=== PATIENT | female | born 1960 | race Caucasian/White ===

== ENCOUNTER → 2024-05-28 | Outpatient (CLI) | payer MEDICARE, OTHER, MEDICAID, SELFPAY ==
--- NOTE | 2024-05-28 10:25 | XR_ITS ---
Examination: Upright PA chest inspiration expiration 2 views TECHNIQUE: Upright PA chest inspiration expiration 2 views Exam date and time: May 28, 2024 1040 hours Comparison July 19, 2023 INDICATIONS: Tuberculosis exposure 2009-/2011, diagnosis COPD FINDINGS: Mild hyperexpansion Normal heart size No pneumonia or pulmonary edema Moderate osteopenia IMPRESSION: No active disease No radiographic findings of tuberculosis
--- NOTE | 2024-05-28 10:25 | XR_ITS ---
Examination: Lumbar spine, 5 views Technique: Lumbar spine AP, lateral, coned lateral lower lumbar spine, bilateral obliques 5 views Exam date and time: May 28, 2024 1032 hours INDICATIONS: Patient fell 2 months ago with injury of the lower back, lower back pain. FINDINGS: Prominent osteopenia Advanced diffuse facet arthropathy No lumbar fracture Advanced degenerative disc disease of the lower 3 lumbar levels IMPRESSION: No lumbar fracture Advanced degenerative disc disease at the lower 3 lumbar levels
== END | disposition home or self-care (01) ==
LOC: CDIM 10:09
PROVIDERS: PCP Nurse Practitioner Family; Referring Provider Nurse Practitioner; Visit Provider Nurse Practitioner
DX: M51.369 Other intervertebral disc degeneration, lumbar region without mention of lumbar back pain or lower extremity pain (principal); S39.92XA Unspecified injury of lower back, initial encounter; W19.XXXA Unspecified fall, initial encounter; F17.200 Nicotine dependence, unspecified, uncomplicated; J44.9 Chronic obstructive pulmonary disease, unspecified
CPT/HCPCS: 71046; 72110

== ENCOUNTER → 2024-07-10 | Outpatient (CLI) | payer MEDICARE, OTHER, MEDICAID, SELFPAY ==
--- NOTE | 2024-07-10 08:00 | XR_ITS ---
Examination: MRI abdomen with intravenous contrast. MRI abdomen without intravenous contrast. Date and time of exam: July 10, 2024 0846 hours Comparison December 15, 2023 INDICATIONS: History epigastric pain, months, MRI abdomen August 27, 2023 36 mm lesion left lobe liver, not depicted on MR study December 23, 2023 Technique: Multiple axial, sagittal and coronal sections of the abdomen obtained. Transverse images, TR 6020, TE 107. T1 weighted transverse images, TR 582, TE 9.5. T2-weighted sagittal images, TR 4000, TE 105. T2-weighted sagittal images, TR 4000, TE 5. Coronal images, TR 4210, TE 107. Axial and coronal images are obtained post 20 cc intravenous injection, gadolinium. Findings: No focal liver lesions on the precontrast images Common bile duct 7 mm no stones Pancreatic duct is not dilated No pancreatic mass Spleen is not enlarged No hydronephrosis No ascites Postcontrast images demonstrate no abnormal enhancing liver or splenic lesion No abdominal lymphadenopathy IMPRESSION: No enhancing liver lesion is depicted
== END | disposition home or self-care (01) ==
LOC: SMRI 07:49
PROVIDERS: PCP Nurse Practitioner Family; Referring Provider Internal Medicine Hematology & Oncology; Visit Provider Internal Medicine Hematology & Oncology
DX: R16.0 Hepatomegaly, not elsewhere classified (principal)
CPT/HCPCS: 74183; A9579

== ENCOUNTER 2024-07-12 11:05 | Outpatient (RCR) | payer MEDICARE, OTHER, MEDICAID, SELFPAY | END 2024-07-27 23:59 | disposition home or self-care (01) | LOC: SCTC 11:05 | PROVIDERS: PCP Nurse Practitioner Family; Referring Provider Internal Medicine Hematology & Oncology; Visit Provider Internal Medicine Hematology & Oncology | DX: K76.0 Fatty (change of) liver, not elsewhere classified (principal); F17.210 Nicotine dependence, cigarettes, uncomplicated; L40.50 Arthropathic psoriasis, unspecified; J44.9 Chronic obstructive pulmonary disease, unspecified; M85.80 Other specified disorders of bone density and structure, unspecified site; Z79.83 Long term (current) use of bisphosphonates | CPT/HCPCS: 99212; G0463 ==

== ENCOUNTER → 2024-08-23 | Outpatient (CLI) | payer MEDICARE, OTHER, MEDICAID, SELFPAY ==
--- NOTE | 2024-08-23 13:45 | XR_ITS ---
Examination: MRI lumbar spine without contrast Date and time of exam: August 23, 2024 1420 hrs. Indications: Lower back pain 20 years Technique: Multiple MRI axial and sagittal sections lumbar spine. Sagittal T2-weighted images, TR 3500, TE 118 T1 weighted transverse sections, TR 688 T8.5, T2-weighted sagittal sections T1 weighted sagittal sections TR 621, TE 30 T2 axial sections, TR 4, 190, TE 84. Findings: Adequate alignment lumbar vertebral bodies on the lateral view Advanced disc narrowing at the lower 3 lumbar levels Diffuse lumbar disc desiccation No lumbar fracture No spondylolisthesis L5-S1 6 mm central left paracentral disc bulge displacing the left S1 nerve root extending to the right foraminal region with severe right L5 ganglionic compression L4-L5 6 mm central lumbar disc bulge extending to the right foramen with mild right L4 ganglionic compression L3-L4 foraminal disc bulges with mild left L3 ganglionic compression L2-L3 no disc protrusion L1-2 no disc protrusion Impression: L5-S1 6 mm central left paracentral disc bulge displacing the left S1 nerve root, extending to the right abdomen with severe right L5 ganglionic compression L4-L5 6 mm central lumbar disc bulge extending to the right foramen with mild right L4 ganglionic compression L3-L4 mild left L3 ganglionic compression
== END | disposition home or self-care (01) ==
PROVIDERS: PCP Nurse Practitioner Family; Referring Provider Nurse Practitioner; Visit Provider Nurse Practitioner
DX: M51.379 Other intervertebral disc degeneration, lumbosacral region without mention of lumbar back pain or lower extremity pain (principal); M51.369 Other intervertebral disc degeneration, lumbar region without mention of lumbar back pain or lower extremity pain; G95.20 Unspecified cord compression
CPT/HCPCS: 72148

== ENCOUNTER 2024-09-11 16:34 | Inpatient (IN) | payer MEDICARE, MEDICAID, SELFPAY ==
[2024-09-11] VITALS (8 sets, daily range): BP systolic 145–185; BP diastolic 89–114; PULSE 105–118; RESP 20–26; TEMP 36.4–36.7; O2SAT 95–98; BMI 29.3
--- NOTE | 2024-09-11 16:43 | XR_ITS ---
Examination: AP chest single view Technique one AP portable upright chest single view Exam date and time: September 11, 2024 1606 hours Comparison May 28, 2024 INDICATIONS: Coughing shortness of breath today. FINDINGS: Prominent left lower lobe pneumonia Right lung clear Suspicious for early pneumonia right upper lobe Prominent osteopenia IMPRESSION: Prominent left lower lobe pneumonia
--- NOTE | 2024-09-11 16:43 | EKG_ITS ---
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
--- NOTE | 2024-09-11 16:47 | PD.EDADULT ---
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 Protein Trace (Neg - Trace) Urine Glucose (UA) Negative (Negative) Urine Ketones Negative (Negative) Urine Blood Negative (Negative) Urine Nitrite Negative (Negative) Urine Bilirubin Negative (Negative) Urine Urobilinogen (Auto) Negative (0.0-1.0) mg/dL Ur Leukocyte Esterase Positive (Negative) Urine RBC 2 (0-3) /hpf Urine WBC 2 (0-5) /hpf Ur Squamous Epith Cells 1 (0-5) /hpf Urine Bacteria Rare (None) Urine Opiates Screen Negative (Negative) Urine Fentanyl Screen Negative (Negative) Ur Barbiturates Screen Negative (Negative) U Amphetamin/Meth Scrn Negative (Negative) U Benzodiazepines Scrn Negative (Negative) U Cocaine Metab Screen Negative (Negative) U Marijuana (THC) Screen Negative (Negative) Discharge Plan Plan Patient Disposition: Admit Acute Care w/in Hospital Patient condition on transfer: Stable Problem List Clinical Impression: Shortness of breath, Lung mass PA/IS MANAGER Supervising Physician PA/IS MANAGER Supervising Physician: Ravin Mendez ENP
[2024-09-11 18:05] LABS: Collection Type, Urine Clean Catch
[2024-09-11 18:17] LABS: Bacteria,Urine Rare; Bilirubin,Urine Negative (Negative); Blood,Urine Negative (Negative); Clarity,Urine Turbid (Clear/Hazy); Color,Urine Yellow (Lt Yel-Yel); Glucose, Urine Negative (Negative); Ketones,Urine Negative (Negative); Leukocyte Esterase,Urine Positive (Negative); Nitrite,Urine Negative (Negative); Protein,Urine Trace (Neg - Trace); RBC,Urine 2 /hpf (0-3); Specific Gravity,Urine 1.027 (1.001-1.035); Squamous Epithelial Cell,Urine 1 /hpf (0-5); Urobilinogen,Urine Negative mg/dL (0.0-1.0); WBC,Urine 2 /hpf (0-5)
[2024-09-11 18:40] LABS: Amphetamine/Methamp Scrn,U Negative (Negative); Barbiturate Screen,Urine Negative (Negative); Benzodiazepines Screen,Urine Negative (Negative); Benzoylecgonine Screen, Ur Negative (Negative); Fentanyl Screen,Urine Negative (Negative); Opiate Screen,Urine Negative (Negative); THC Screen,Urine Negative (Negative)
[2024-09-11 19:05] LABS: Basophils # (Auto) 0.1 Thou/mm3 (0.0-0.2); Basophils % (Auto) 1 % (0-2.5); Eosinophils # (Auto) 0.2 Thou/mm3 (0.0-0.5); Eosinophils % (Auto) 1 % (0-10); Hematocrit 42.2 % (36.0-46.0); Hemoglobin 14.8 g/dL (12.0-16.0); Immature Granulocytes % (Auto) 2 % (0-0); Lymphocytes # (Auto) 3.2 Thou/mm3 (1.0-4.8); Lymphocytes % (Auto) 25 % (10-50); Mean Corpuscular HGB Conc 35.1 g/dl (31.0-37.0); Mean Corpuscular Hemoglobin 32.2 pg (25.0-35.0); Mean Corpuscular Volume 92 fL (80-100); Monocytes # (Auto) 1.5 Thou/mm3 (0.0-0.8); Monocytes % (Auto) 12 % (0-12); Neutrophils # (Auto) 7.5 Thou/mm3 (1.8-7.7); Neutrophils % (Auto) 59 % (37-80); Nucleated Red Blood Cell % 0 /100 WBC (0); Platelet Count 427 Thou/mm3 (140-440); RDW Standard Deviation 42.2 fL (36.4-46.3); White Blood Count 12.7 Thou/mm3 (3.6-11.0)
[2024-09-11 19:12] LABS: Partial Thromboplastin Time 27.8 Seconds (22.0-36.0); Prothrombin Time 11.2 Seconds (9.0-12.2)
[2024-09-11 19:17] LABS: B-Type Natriuretic Peptide 35 pg/mL (0-100)
[2024-09-11 19:19] LABS: Alanine Aminotransferase 31 U/L (10-49); Albumin, Serum 3.7 gm/dL (3.4-4.8); Alkaline Phosphatase 94 U/L (46-116); Anion Gap 10 (7-16); Aspartate Amino Transferase 16 U/L (0-34); BUN/Creatinine Ratio 16 Ratio (12-20); Bilirubin,Total 0.9 mg/dL (0.3-1.2); Blood Urea Nitrogen 11 mg/dL (9-23); Calcium 10.1 mg/dL (8.3-10.6); Calcium (Corrected) 10.3 mg/dL (8.5-10.1); Carbon Dioxide 23.5 mMol/L (20.0-31.0); Chloride 100 mMol/L (98-107); Creatinine (Component) 0.7 mg/dL (0.6-1.3); Estimated Creatinine Clearance 79.7 mL/min (>60); Globulin 3.8 gm/dL (2.3-3.5); Glucose 98 mg/dL (74-106); LDH (Lactate Dehydrogenase) 227 U/L (120-246); Magnesium 1.6 mg/dL (1.6-2.6); Osmolality,Calculated 265 (275-295); Potassium 3.9 mMol/L (3.4-5.1); Sodium 133 mMol/L (136-145); Total Protein 7.5 gm/dL (5.7-8.2); Troponin I < 0.020 ng/mL (0.0-0.045); eGFR > 60 See Note
--- NOTE | 2024-09-11 20:29 | XR_ITS ---
Examination: CTA chest with intravenous contrast 2-D reconstructions 3-D reconstructions, vascular Date and time of exam: September 11, 2024 at 2154 hrs. Indications: Coughing up blood chest pain SOB today CTDI: vol (mGy) 8.67 DLP: (mGycm) 343 Technique: Multiple axial sections of the thorax have been obtained. 3 mm slice thickness, from below the hemidiaphragms to above the apices of the lungs. Mediastinal and lung density settings have been obtained. 2-D sagittal and coronal reconstructions. 3-D angiographic renderings, 3-D volume renderings, 3D post processing, vascular maximum intensity projections obtained. Contrast administered is 100 cc Isovue-370. Low dose protocols were performed. One or more of the following dose reduction techniques were used; automated exposure control, adjustment of the mA and/or KV according to patient size, use of iterative reconstruction technique. Findings: No thoracic aortic aneurysm dilatation or dissection Negative for pulmonary artery filling defects No mediastinal lymphadenopathy Dense opacification in the left lower lobe, 5.6 x 3.5 cm No visualized liver or splenic lesion Absent gallbladder No pancreatic mass Mild thoracic spondylosis Impression: Negative for pulmonary artery emboli Dense pneumonic consolidation versus pulmonary mass in the left lower lobe, 5.6 x 3.5 cm Recommend follow-up chest imaging to document clearing and exclude underlying pulmonary neoplasm
[2024-09-11] MEDS: DiphenhydrAMINE INJ 50 MG/ML VIAL 25 MG IVP (21:08)
[2024-09-11] MEDS: MethylPREDNISolone SOD SUCC 62.5 MG/ML 2ML VIAL 125 MG IVP (21:08)
[2024-09-11] MEDS: hydrALAZINE INJ 20 MG/ML VIAL IV (21:11)
[2024-09-11] MEDS: cefTRIAXone 1,000 MG in SODIUM CHLORIDE 0.9% (Popper) 50 ML 100 MG IV (21:13)
--- NOTE | 2024-09-11 23:06 | ESHP_ITS ---
<Statement entered by John Romero MD - 09/12/24 05:28> 64-year-old female with remote history of latent TB status post therapy, COPD not on home oxygen, rheumatoid arthritis on Remicade infusion, atrial fibrillation on Eliquis, hypertension who presented to the ER with chief complaint of shortness of breath and blood-tinged sputum. Patient states that she was feeling well however has been having shortness of breath blood-tinged sputum that has been going on for the past 2 weeks with associated shortness of breath progressively have gotten worse which prompted an ER visit. In addition, patient also noted 2 pound weight loss in the past 1 year that is unintentional. In the ER, patient was noted to be hypoxic and septic and underwent CT chest with findings of questionable mass. As a result, plan to admit the patient for acute secondary to sepsis secondary to pneumonia and given history of latent TB and being on Remicade will isolate the patient TB isolation and obtain cocci studies. Patient on IV antibiotics.I reviewed above note and agree with findings and plans. I have also personally examined the patient with medicine team and went over assessment and plan with medical team including international flight attendant and resident physician. Documentation for date of: 09/11/24 HPI History of Present Illness History of present illness: HPI: A 64-year-old female patient with reportedly past medical history of COPD not on oxygen at home, hypertension, rheumatoid arthritis on Remicade infusion, A-fib on Eliquis, hypertension, bipolar disorder with suicidal ideation, osteoporosis, presented to the ED due to productive cough with tinge of blood in the sputum for the past 2 weeks. Patient reported that it is associated with mild chest pain that increased when she take a deep breath and located at the epigastric area. She believes it is muscle strain because of her persistent cough. Patient also reported shortness of breath unrelated to position. Patient denied any fever or chills, denied any history of travel abroad or sick contacts. However she reported she had history of TB exposure few years ago in which she was given anti-TB treatment for 3 months. On further questioning patient reported unintentional weight loss for the last year in which she lost 38 pounds. 1 year ago she was 208 pounds and now she is 130 pounds per the patient. Patient reported that she has been smoker for 40 years 1 to 2 packs/day last time smoked 2 weeks ago when her symptoms started. On review of other system patient reported 3 days of diarrhea last week that resolved spontaneously. At the ED patient blood pressure was 168/109, pulse rate of 115, respiratory rate of 22, saturating 97 on room air however it dropped to 94 on 2 L of oxygen. Her labs showed WBC of 12.7, however hemoglobin was stable, CMP showed sodium of 133 potassium of 3.9, calcium of 10.3 however troponin was within normal limits, liver enzymes within normal limits, urinalysis was normal chest x-ray showed prominent left lower lobe pneumonia, CT angio of the chest was done showed dense pneumonic consolidation versus pulmonary mass in the left lower lobe measure 5.6 x 3.5 cm differentials would include neoplasm as per radiology report. Home medications: Pending med rec PMH: As above PSX: PFX: Lives with her and son, no history of problems work Social hx: Alcohol: Denied Tobacco: 4 years history of smoking 1 to 2 packs/day stopped 2 weeks ago Illicit drugs: Denied Allergies:iodine morphine, etanercept Review of Systems Review of Systems Systems Reviewed: All systems reviewed, normal except as documented Exam Vital Signs Temp Pulse Resp BP Pulse Ox O2 Del Method O2 Flow Rate 98.0 F 114 H 20 165/89 H 96 Nasal Cannula 2 09/11/24 18:21 09/11/24 21:36 09/11/24 21:36 09/11/24 21:36 09/11/24 21:36 09/11/24 21:36 09/11/24 21:36 Narrative Exam GEN: AOx3, overweight, not able to speak full sentences, continue to cough and produce white-greenish phlegm HEENT: NC/AC, oral mucosa dry, neck supple CVS: RRR, S1-S2 present, no murmurs appreciated RESP: CTAB GI: soft,non distended, non tender, NBS MSK: able to move all 4 limbs, no lower extremity edema SKIN: warm and dry STREET LIGHT REPAIRER: CN II-XII and Sensation grossly intact. Results: Labs 09/11/24 18:05 09/11/24 18:05 Labs: Short CBC 09/11/24 Range/Units 18:05 WBC 12.7 H (3.6-11.0) Thou/mm3 Hgb 14.8 (12.0-16.0) g/dL Hct 42.2 (36.0-46.0) % Plt Count 427 (140-440) Thou/mm3 BMP 09/11/24 18:05 Sodium 133 L Potassium 3.9 Chloride 100 Carbon Dioxide 23.5 BUN 11 Creatinine 0.7 Glucose 98 Calcium 10.1 Cardiac Enzymes 09/11/24 Range/Units 18:05 Troponin I < 0.020 (0.0-0.045) ng/mL Liver Function 09/11/24 Range/Units 18:05 Total Bilirubin 0.9 (0.3-1.2) mg/dL AST 16 (0-34) U/L ALT 31 (10-49) U/L Alkaline Phosphatase 94 (46-116) U/L Albumin 3.7 (3.4-4.8) gm/dL Urine 09/11/24 Range/Units 17:10 Urine Color Yellow (Lt Yel-Yel) Urine Clarity Turbid A (Clear/Hazy) Urine pH 6.0 (5.0-7.0) Ur Specific [place] 1.027 (1.001-1.035) Urine Protein Trace (Neg - Trace) Urine Glucose (UA) Negative (Negative) Quality Measures Quality Measures none Advance care planning discussed with:: patient and significant other Medications Home Medications and Allergies Home Medications ?Medication ?Instructions ?Recorded ?Confirmed ?Type albuterol sulfate 90 mcg/actuation 2 puff inhalation Q ID #0 03/05/15 12/02/23 History aerosol inhaler (ProAir HFA) inhalations loratadine 10 mg tablet (Claritin) 10 mg PO QDAY #0 ta bs 03/05/15 12/02/23 History venlafaxine 150 mg 150 mg PO QDAY ##0 03/05/15 12/02/23 History capsule,extended release 24 hr (Effexor XR) divalproex 500 mg tablet,delayed 500 mg PO TID #0 tabs 08/06/15 12/02/23 History release (Depakote) amlodipine 5 mg tablet (Norvasc) 10 mg PO BID #0 tabs 04/13/17 12/02/23 History ergocalciferol (vitamin D2) 1,250 50,000 unit PO QWEEK 02/22/18 12/02/23 History mcg (50,000 unit) capsule (Vitamin D2) hydroxyzine HCl 25 mg tablet 50 mg PO TID 02/22/1801/17 History Held on 12/02/23. Instructions: Resume on 12/03/23. RESUME IN 24 HOURS cyclobenzaprine 10 mg tablet 10 mg PO HS 10/19/2301/17 History Held on 12/02/23. Instructions: Resume on 12/03/23. RESUME IN 24 HOURS hydrochlorothiazide 12.5 mg tablet 12.5 mg PO QAM 09/2612/02/23 History ipratropium 0.5 mg-albuterol 3 mg 3 ml inhalation Q4H PRN Shortness 10/19/23 12/02/23 History (2.5 mg base)/3 mL nebulization Of Breath Or Wheezing soln ubrogepant 100 mg tablet (Ubrelvy) 100 mg PO PRN PRN M igraine Headache 10/19/23 12/02/23 History carvedilol 12.5 mg tablet 12.5 mg DAILY 11/15/2312/01 History clopidogrel 75 mg tablet 75 mg DAILY 11/15/23 4 History metoprolol tartrate 100 mg tablet 100 mg BID 11/15/23 12/02/23 History pantoprazole 40 mg tablet,delayed 40 mg PO BID 4 12/02/23 History release pregabalin 50 mg capsule 50 mg BID Nerve pain 4 12/02/23 History loratadine 10 mg tablet 10 mg PO QDAY 12/02/2312/01 History Allergies Allergy/AdvReac Type Severity Reaction Status Date / Time iodine Allergy Severe RASH,DIFFICULTY Verified 09/11/24 16:37 BREATHING morphine Allergy Severe FEELS ON Verified 09/11/24 16:37 FIRE,FACE SWELLS adhesive tape Allergy Unknown Rash Verified 09/11/24 16:37 etanercept Allergy Rash Verified 09/11/24 16:37 Visit Medications Acetaminophen (Acetaminophen 325 Mg Tablet) 650 mg PO Q6H PRN PRN Reason: Fever >101.5 Stop: 10/11/24 22:49 Acetaminophen (Acetaminophen 325 Mg Tablet) 650 mg PO Q6H PRN PRN Reason: PAIN SCALE 1-3 (mild Stop: 10/11/24 22:49 Albuterol/Ipratropium (Albuterol/Ipratropium (Duoneb) Rt Ruth 3 Ml Nebu) 3 ml INH Q6HRRT PRN PRN Reason: wheezing Stop: 10/12/24 00:59 Albuterol/Ipratropium (Albuterol/Ipratropium (Duoneb) Rt Ruth 3 Ml Nebu) 3 ml INH X1 ONE Stop: 09/11/24 23:06 Amlodipine Besylate (Amlodipine Besylate 5 Mg Tablet) 10 mg PO QDAY MAGDY Stop: 10/11/24 23:04 Azithromycin (Azithromycin 250 Mg Tablet) 250 mg PO QDAY MAGDY Stop: 09/17/24 08:59 Sodium Chloride (Ns) 1,000 mls @ 999 mls/hr IV .Q1H1M ONE Stop: 09/12/24 00:00 Sodium Chloride (Ns) 1,000 mls @ 999 mls/hr IV .Q1H1M ONE Stop: 09/12/24 00:00 Ceftriaxone Sodium 1,000 mg/ (Sodium Chloride) 50 mls @ 100 mls/hr IV QDAY MAGDY Stop: 09/19/24 08:59 Ondansetron HCl (Ondansetron Inj 2 Mg/Ml Inj 2 Ml) 4 mg IV Q6H PRN; Protocol PRN Reason: NAUSEA OR VOMITING Stop: 10/11/24 22:49 Pantoprazole Sodium (Pantoprazole 40 Mg Tablet) 40 mg PO QDAY MAGDY Stop: 10/12/24 08:59 Sennosides (Senna Tablet) 1 tab PO QDAY PRN; Protocol PRN Reason: constipation Stop: 10/11/24 22:49 Sodium Chloride (Sodium Chloride Rt 10% 15 Ml Nebu) 5 ml INH X1 ONE Stop: 09/11/24 22:51 Sodium Chloride (Sodium Chloride Rt 10% 15 Ml Nebu) 5 ml INH X1 ONE Stop: 09/11/24 22:59 Discontinued Medications Diphenhydramine HCl (Diphenhydramine Inj 50 Mg/Ml Vial) 25 mg IVP X1 ONE Stop: 09/11/24 20:53 Last Admin: 09/11/24 21:08 Dose: 25 mg Hydralazine HCl (Hydralazine Inj 20 Mg/Ml Vial) 20 mg IV X1 ONE Stop: 09/11/24 19:31 Last Admin: 09/11/24 21:11 Dose: 20 mg Ceftriaxone Sodium 1,000 mg/ (Sodium Chloride) 50 mls @ 100 mls/hr IV X1 ONE Stop: 09/11/24 19:59 Last Infusion: 09/11/24 22:13 Dose: Infused Methylprednisolone Sodium Succinate (Methylprednisolone Sod Succ 62.5 Mg/Ml 2ml Vial) 125 mg IVP X1 ONE Stop: 09/11/24 20:53 Last Admin: 09/11/24 21:08 Dose: 125 mg Assessment & Plan Plan Summary:A 64-year-old female patient with reportedly past medical history of COPD not on oxygen at home, hypertension, rheumatoid arthritis on Remicade infusion, A-fib on Eliquis, hypertension, bipolar disorder with suicidal ideation, osteoporosis, presented to the ED due to productive cough with tinge of blood in the sputum for the past 2 weeks. Patient was admitted to rule out TB. Assessment and plan #Acute hypoxic respiratory failure #Sepsis secondary to pneumonia #Community-acquired pneumonia #COPD exacerbation #TB rule out DDx: Pneumonia versus TB infection versus cocci versus neoplasm versus COPD exacerbation Patient met sepsis criteria with elevated heart rate, elevated WBCs, and pulmonary infiltrate Patient presented with cough which is productive with tinge of blood, weight loss, history of exposure to TB however she was given anti-TB medications for 3 months Patient is on Remicade for rheumatoid arthritis which is a risk factor for TB reactivation Patient also has long history of smoking, which he also increase the risk of pulmonary neoplasm. CT showed Dense pneumonic consolidation versus pulmonary mass in the left lower lobe, 5.6 x 3.5 cm Plan ?Admit patient to telemetry ? Start the patient on ceftriaxone, azithromycin ? Follow-up on the blood culture and urine culture ? Put patient on droplet precautions ? Sent for AFB, cocci and follow-up on the results ? DuoNebs every 6 hours as needed ? Tylenol for fever ? Oxygen to keep O2 saturation between 88 to 92% ? RSV, influenza screening #History of hypertension Plan ? Resume home medications after med reconciliation ?Start the patient on amlodipine 10 mg p.o. daily #History of A-fib on Eliquis Plan ? Because the patient has hemoptysis and has suspicious pulmonary lesion we will hold on Eliquis at this time, consider resuming when clinically appropriate #History of bipolar disorder with suicidal ideation On evaluation patient denied any ideas to hurt herself or others Patient informed that she is taking Depakote as a mood stabilizer Plan ? Pending med reconciliation to resume her home medications #History of osteoporosis Patient on alendronate tablets weekly Plan ? Consider resuming home medication alendronate when clinically appropriate Hospital Maintenance: FEN: Cardiac diet DVT ppx: SCDs GI ppx: Pantoprazole IV lines: PIV Treadwell: Not indicated Code status: Full code Dispo: Telemetry - Patient's plan and care discussed with my attending, Dr. Heather Huerta MD Internal Medicine PGY-2
[2024-09-11] MEDS: SODIUM CHLORIDE 0.9% 1000 ML 1,000 ML 999 ML IV ×2 (23:18)
[2024-09-11] MEDS: amLODIPine BESYLATE 5 MG TABLET 10 MG PO (23:23)
[2024-09-11] MEDS: ALBUTEROL/IPRATROPIUM (Duoneb) RT SOL 3 ML NEBU INH (23:39)
[2024-09-11] MEDS: SODIUM CHLORIDE RT 10% 15 ML NEBU 5 ML INH (23:50)
[2024-09-12] VITALS (12 sets, daily range): BP systolic 118–149; BP diastolic 69–95; PULSE 70–120; RESP 17–98; TEMP 36.1–37; O2SAT 93–98
[2024-09-12 00:19] LABS: Cult AFB Sendout- Sputum* See Sep Rpt
[2024-09-12 05:15] LABS: Basophils % (Auto) 0 % (0-2.5); Eosinophils % (Auto) 0 % (0-10); Hematocrit 40.8 % (36.0-46.0); Hemoglobin 14.4 g/dL (12.0-16.0); Immature Granulocytes % (Auto) 2 % (0-0); Immature Granulocytes Auto 0.22 Thou/mm3 (0.00-0.00); Lymphocytes # (Auto) 1.1 Thou/mm3 (1.0-4.8); Lymphocytes % (Auto) 10 % (10-50); Mean Corpuscular HGB Conc 35.3 g/dl (31.0-37.0); Mean Corpuscular Hemoglobin 32.5 pg (25.0-35.0); Mean Corpuscular Volume 92 fL (80-100); Monocytes # (Auto) 0.1 Thou/mm3 (0.0-0.8); Monocytes % (Auto) 1 % (0-12); Neutrophils # (Auto) 9.9 Thou/mm3 (1.8-7.7); Neutrophils % (Auto) 87 % (37-80); Nucleated Red Blood Cell % 0 /100 WBC (0); Platelet Count 438 Thou/mm3 (140-440); RDW Standard Deviation 42.9 fL (36.4-46.3); Red Blood Count 4.43 Miln/mm3 (4.00-5.20); White Blood Count 11.4 Thou/mm3 (3.6-11.0)
[2024-09-12 05:53] LABS: Respiratory Syncytial Virus Ag Negative (Negative)
[2024-09-12 06:16] LABS: Alanine Aminotransferase 35 U/L (10-49); Albumin, Serum 3.8 gm/dL (3.4-4.8); Albumin/Globulin Ratio 1.1 (1.2-2.2); Alkaline Phosphatase 98 U/L (46-116); Anion Gap 10 (7-16); Aspartate Amino Transferase 26 U/L (0-34); BUN/Creatinine Ratio 14 Ratio (12-20); Bilirubin,Total 0.6 mg/dL (0.3-1.2); Blood Urea Nitrogen 11 mg/dL (9-23); Calcium 9.1 mg/dL (8.3-10.6); Calcium (Corrected) 9.3 mg/dL (8.5-10.1); Carbon Dioxide 19.9 mMol/L (20.0-31.0); Chloride 103 mMol/L (98-107); Creatinine (Component) 0.8 mg/dL (0.6-1.3); Estimated Creatinine Clearance 69.7 mL/min (>60); Globulin 3.6 gm/dL (2.3-3.5); Glucose 297 mg/dL (74-106); Magnesium 1.4 mg/dL (1.6-2.6); Osmolality,Calculated 276 (275-295); Phosphorous 2.3 mg/dL (2.4-5.1); Potassium 4.3 mMol/L (3.4-5.1); Sodium 133 mMol/L (136-145); Thyroid Stimulating Hormone 1.15 uIU/mL (0.55-4.78); Total Protein 7.4 gm/dL (5.7-8.2); eGFR > 60 See Note
[2024-09-12] MEDS: PANTOPRAZOLE 40 MG TABLET PO (09:00)
[2024-09-12] MEDS: AZITHROMYCIN 250 MG TABLET PO (09:00)
[2024-09-12] MEDS: NAPH,KPH MBDB 1 PACKET (1.5 GM) PO (09:00)
[2024-09-12] MEDS: amLODIPine BESYLATE 5 MG TABLET 10 MG PO (09:00)
[2024-09-12] MEDS: Magnesium Sulfate 4 GM Ivpb 4 GM/50 ML BAG IV (09:00)
--- NOTE | 2024-09-12 13:40 | ESPR_ITS ---
<Statement entered by Marge Stahl MD - 09/12/24 19:41> I discussed with and supervised the internet marketing intern physician who took care of this patient. I personally saw and examined the patient and discussed the assessment and plan with the entire medicine team, including my attending Dr. Hutchinson, I agree with the assessment and plan as documented below Patient seen and examined at bedside today. Labs and imaging reviewed. No overnight acute events Did not want to bedside patient said that she feels better twice endorsed pleuritic chest pain due to cough continued to present hemoptysis patient stated in the past she was exposed for TB and received 3 months treatment. Will continue IV antibiotics ceftriaxone and azithromycin. Marge Stahl MD PGY-3 Disclaimer: Despite multiple revisions, due to the dictation software being used, the document bellow may not be free of grammatical errors including phonetic/typographic errors. However, this does not deter from our commitment to providing health care in the patient's best interest in mind. <Statement entered by Chyna Babin MD - 09/12/24 18:49> Patient seen and examined at bedside. No acute overnight events reported. Patient continues to have cough with hemoptysis and pleuritic chest pain. Will reach out to patient's general scrap worker for old records to see when her last TB and treatment was prior to possibly starting infliximab if needed. Patient will continue to be on IV Rocephin, azithromycin, pending cultures, cocci. I discussed with and supervised the internet marketing intern physician who took care of this patient. I personally saw and examined the patient and discussed the assessment and plan with the entire medicine team, including my attending Dr. Hutchinson, I agree with most of the assessment and plan as documented below Chyna Babin M.D. PGY-2 Disclaimer: Despite multiple revisions, due to the dictation software being used, the document bellow may not be free of grammatical errors including phonetic/typographic errors. However, this does not deter from our commitment to providing health care in the patient's best interest in mind. Documentation for date of: 09/12/24 Subjective Subjective Interval history: No overnight events. Patient seen examined at bedside, resting comfortably. Patient reports continued cough with hemoptysis, pleuritic chest pain. Denies fever, chills, nausea, vomiting, fatigue, lethargy. Will call general scrap worker, see if patient had recent TB test and what the result was. Exam Vital Signs Temp Pulse Resp BP Pulse Ox O2 Del Method O2 Flow Rate 97.1 F 97 18 134/79 H 96 Room Air 2 09/12/24 08:00 09/12/24 09:00 09/12/24 08:00 09/12/24 09:00 09/12/24 08:00 09/12/24 06:31 09/12/24 00:00 Narrative Exam PE: Gen: Well-developed and well-nourished. HEENT: NCAT, PERRLA, EOMI, MMM, anicteric conjunctivae. CVS: normal S1 and S2. RRR. No M/R/G. Resp: CTA B/L. No rhonchi, rales, crackles or wheezing. Abd: soft, non-tender, non-distended. MSK: Good ROM in BUE & BLE. No edema or rash. Neuro: CN II-XII grossly intact. Strength 5/5 in BUE & BLE. Alert and oriented x3. Psych: appropriate mood and affect. Objective Labs 09/13/24 05:37 09/13/24 05:37 Labs: Laboratory Results - last 24 hr 09/11/24 09/11/24 09/12/24 17:10 18:05 04:57 WBC 12.7 H 11.4 H RBC 4.60 4.43 Hgb 14.8 14.4 Hct 42.2 40.8 MCV 92 92 MCH 32.2 32.5 MCHC 35.1 35.3 RDW Std Deviation 42.2 42.9 Plt Count 427 438 Neut % (Auto) 59 87 H Lymph % (Auto) 25 10 [place] % (Auto) 12 1 Eos % (Auto) 1 0 Baso % (Auto) 1 0 Neut # (Auto) 7.5 9.9 H Lymph # (Auto) 3.2 1.1 [place] # (Auto) 1.5 H 0.1 Eos # (Auto) 0.2 0.0 Baso # (Auto) 0.1 0.0 Immature Gran # (Auto) 0.30 H 0.22 H Absolute Nucleated RBC 0.00 0.00 Immature Gran % 2 H 2 H Nucleated RBC % 0 0 PT 11.2 INR 1.0 APTT 27.8 Sodium 133 L 133 L Potassium 3.9 4.3 Chloride 100 103 Carbon Dioxide 23.5 19.9 L Anion Gap 10 10 BUN 11 11 Creatinine 0.7 0.8 Estim Creat Clear Calc 79.7 69.7 eGFR > 60 > 60 BUN/Creatinine Ratio 16 14 Glucose 98 297 H D Calculated Osmolality 265 L 276 Calcium 10.1 9.1 Corrected Calcium 10.3 H 9.3 Phosphorus 2.3 L Magnesium 1.6 1.4 L Total Bilirubin 0.9 0.6 AST 16 26 ALT 31 35 Alkaline Phosphatase 94 98 Lactate Dehydrogenase 227 Troponin I < 0.020 B-Natriuretic Peptide 35 Total Protein 7.5 7.4 Albumin 3.7 3.8 Globulin 3.8 H 3.6 H Albumin/Globulin Ratio 1.0 L 1.1 L TSH 1.15 Ur Collection Type Clean Catch Urine Color Yellow Urine Clarity Turbid A Urine pH 6.0 Ur Specific [place] 1.027 Urine Protein Trace Urine Glucose (UA) Negative Urine Ketones Negative Urine Blood Negative Urine Nitrite Negative Urine Bilirubin Negative Urine Urobilinogen (Auto) Negative Ur Leukocyte Esterase Positive Urine RBC 2 Urine WBC 2 Ur Squamous Epith Cells 1 Urine Bacteria Rare Urine Opiates Screen Negative Urine Fentanyl Screen Negative Ur Barbiturates Screen Negative U Amphetamin/Meth Scrn Negative U Benzodiazepines Scrn Negative U Cocaine Metab Screen Negative U Marijuana (THC) Screen Negative RSV Rapid Negative Quality Measures Quality Measures VTE prophylaxis Advance care planning discussed with:: patient Assessment & Plan Assessment Current Active Medications: Generic Name Dose Route Start Last Admin Trade Name Freq PRN Reason Stop Dose Admin Acetaminophen 650 mg 09/11/24 22:50 Acetaminophen 325 Mg Tablet PO 10/11/24 22:49 Q6H PRN Fever >101.5 Acetaminophen 650 mg 09/11/24 22:50 Acetaminophen 325 Mg Tablet PO 10/11/24 22:49 Q6H PRN PAIN SCALE 1-3 (mild Albuterol/Ipratropium 3 ml 09/11/24 22:50 Albuterol/Ipratropium (Duoneb) Rt Ruth 3 Ml Nebu INH 10/12/24 00:59 Q6HRRT PRN wheezing Amlodipine Besylate 10 mg 09/11/24 23:05 09/12/24 09:00 Amlodipine Besylate 5 Mg Tablet PO 10/11/24 23:04 10 mg QDAY MAGDY Administration Azithromycin 250 mg 09/12/24 09:00 09/12/24 09:00 Azithromycin 250 Mg Tablet PO 09/17/24 08:59 250 mg QDAY MAGDY Administration Ceftriaxone Sodium 1,000 mg/ 50 mls @ 100 mls/hr 09/12/24 21:00 Sodium Chloride IV 09/19/24 08:59 QDAY@2100 MAGDY Labetalol HCl 10 mg 09/11/24 23:08 Labetalol Inj 5 Mg/Ml Vial 20 Ml IVP 10/11/24 23:07 Q2H PRN SBP >180mmHg Ondansetron HCl 4 mg 09/11/24 22:50 Ondansetron Inj 2 Mg/Ml Inj 2 Ml IV 10/11/24 22:49 Q6H PRN NAUSEA OR VOMITING Protocol Pantoprazole Sodium 40 mg 09/12/24 09:00 09/12/24 09:00 Pantoprazole 40 Mg Tablet PO 10/12/24 08:59 40 mg QDAY MAGDY Administration Sennosides 1 tab 09/11/24 22:50 Senna Tablet PO 10/11/24 22:49 QDAY PRN constipation Protocol Plan 64-year-old female patient with reportedly past medical history of COPD not on oxygen at home, hypertension, rheumatoid arthritis on Remicade infusion, A-fib on Eliquis, hypertension, bipolar disorder with suicidal ideation, osteoporosis, presented to the ED due to productive cough with tinge of blood in the sputum for the past 2 weeks. Patient was admitted to rule out TB. #Acute hypoxic respiratory failure #Sepsis ruled out #Community-acquired pneumonia #COPD exacerbation #TB rule out DDx: Pneumonia versus TB infection versus cocci versus neoplasm versus COPD exacerbation Patient met SIRS criteria with elevated heart rate, elevated WBCs, and pulmonary infiltrate, however sepsis was ruled out due to lack of endorgan damage including normal lactate. Patient presented with cough which is productive with tinge of blood, weight loss, history of exposure to TB however she was given anti-TB medications for 3 months Patient is on Remicade for rheumatoid arthritis which is a risk factor for TB reactivation, however patient likely had negative test of before beginning infusions. Patient also has long history of smoking, which he also increase the risk of pulmonary neoplasm. CT showed dense pneumonic consolidation versus pulmonary mass in the left lower lobe, 5.6 x 3.5 cm -Telemetry -Ceftriaxone 1 g IV daily (started 09/11) -Azithromycin 50 mg p.o. daily (started 09/10) -Follow-up on the blood culture and urine culture -Put patient on droplet precautions -Sent for AFB, cocci and follow-up on the results -DuoNebs every 6 hours as needed -Tylenol for fever -Oxygen to keep O2 saturation between 88 to 92% #History of hypertension -Start the patient on amlodipine 10 mg p.o. daily #History of A-fib on Eliquis -Because the patient has hemoptysis and has suspicious pulmonary lesion we will hold on Eliquis at this time, consider resuming when clinically appropriate #History of bipolar disorder with suicidal ideation On evaluation patient denied any ideas to hurt herself or others Patient informed that she is taking Depakote as a mood stabilizer -Resume home meds: Depakote 5 mg p.o. 3 times daily #History of osteoporosis Patient on alendronate tablets weekly Plan -Consider resuming home medication alendronate when clinically appropriate FEN: Cardiac diet DVT ppx: SCDs GI ppx: Pantoprazole IV lines: PIV Code status: Full code Plan of care discussed with senior residents Dr. Babin PGY?[address] Stahl PGY?3, and attending Dr. Hutchinson. Bogdan Ochoa MD PGY?1 Attending Provider Attestation/Addendum I have examined the patient, reviewed labs and imaging findings, discussed the case with the resident(s), and reviewed entered orders. I agree with the plan of care as outlined in this note, with these additional summaries/recommendations: Patient seen at bedside. Patient admitted overnight for hemoptysis. CTA chest was negative for pulmonary emboli but did reveal dense pneumonic consolidation versus pulmonary mass in the left lower lobe 5.6X 3.5 cm. Patient was placed on isolation precautions and AFBs were ordered. Patient apparently does have a history of latent tuberculosis. Patient recently started Remicade and we will reach out to general scrap worker to see if TB studies were obtained at that time and if negative we will discontinue isolation precautions. Continue IV antibiotics for community-acquired pneumonia. Blood and sputum cultures pending. Patient has history of atrial fibrillation and we will hold home Eliquis. Continue home antihypertensives as tolerated. Continue home Depakote. Repeat hematology and chemistry panel in AM. Dr. Evangelina MD
--- NOTE | 2024-09-12 13:55 | PC.SS ---
Patient is alert/oriented. Patient was able to verify demographics. Patient is in R/o TB isolation precautions. Patient states she resides at home with her . She was admitted for hemoptysis. Patient states she's independent with ADL's. No DME at home. Patient PCP: Iwona Song NP @ [facility]. Patient states her family/friends provide transportation. Patient receives [employer] income. Pharmacy: [email or web address]. Discharge plan: return home. Alt medical decision maker: spouse, Chang, .Family to provide transportation.
[2024-09-12] MEDS: METOPROLOL TARTRATE 25 MG TABLET 50 MG PO (20:58)
[2024-09-12] MEDS: cefTRIAXone 1,000 MG in SODIUM CHLORIDE 0.9% (Popper) 50 ML 100 MG IV (20:59)
[2024-09-12] MEDS: BENZONATATE 100 MG CAPSULE 200 MG PO (21:00)
[2024-09-12] MEDS: DIVALPROEX SOD DR 500 MG TABLET.DR PO (21:00)
[2024-09-13] VITALS (10 sets, daily range): BP systolic 127–141; BP diastolic 63–89; PULSE 66–103; RESP 16–98; TEMP 36.2–36.9; O2SAT 95–98; BMI 30.7; BMI 30.4
[2024-09-13] MEDS: BENZONATATE 100 MG CAPSULE 200 MG PO ×3 (05:29→21:54)
[2024-09-13] MEDS: DIVALPROEX SOD DR 500 MG TABLET.DR PO ×3 (05:30→21:54)
[2024-09-13 06:15] LABS: Basophils # (Auto) 0.1 Thou/mm3 (0.0-0.2); Basophils % (Auto) 0 % (0-2.5); Eosinophils % (Auto) 0 % (0-10); Hematocrit 39.2 % (36.0-46.0); Hemoglobin 13.5 g/dL (12.0-16.0); Immature Granulocytes % (Auto) 2 % (0-0); Immature Granulocytes Auto 0.27 Thou/mm3 (0.00-0.00); Lymphocytes % (Auto) 24 % (10-50); Mean Corpuscular HGB Conc 34.4 g/dl (31.0-37.0); Mean Corpuscular Hemoglobin 32.4 pg (25.0-35.0); Mean Corpuscular Volume 94 fL (80-100); Monocytes # (Auto) 1.5 Thou/mm3 (0.0-0.8); Monocytes % (Auto) 9 % (0-12); Neutrophils # (Auto) 11.5 Thou/mm3 (1.8-7.7); Neutrophils % (Auto) 66 % (37-80); Nucleated Red Blood Cell % 0 /100 WBC (0); Platelet Count 493 Thou/mm3 (140-440); RDW Standard Deviation 44.5 fL (36.4-46.3); Red Blood Count 4.17 Miln/mm3 (4.00-5.20); White Blood Count 17.6 Thou/mm3 (3.6-11.0)
[2024-09-13 06:49] LABS: Alanine Aminotransferase 32 U/L (10-49); Albumin, Serum 3.7 gm/dL (3.4-4.8); Albumin/Globulin Ratio 1.1 (1.2-2.2); Alkaline Phosphatase 83 U/L (46-116); Anion Gap 8 (7-16); Aspartate Amino Transferase 18 U/L (0-34); BUN/Creatinine Ratio 17 Ratio (12-20); Bilirubin,Total 0.4 mg/dL (0.3-1.2); Blood Urea Nitrogen 10 mg/dL (9-23); Calcium 8.9 mg/dL (8.3-10.6); Calcium (Corrected) 9.1 mg/dL (8.5-10.1); Carbon Dioxide 22.7 mMol/L (20.0-31.0); Chloride 105 mMol/L (98-107); Creatinine (Component) 0.6 mg/dL (0.6-1.3); Globulin 3.5 gm/dL (2.3-3.5); Glucose 106 mg/dL (74-106); Magnesium 2.4 mg/dL (1.6-2.6); Osmolality,Calculated 270 (275-295); Phosphorous 2.3 mg/dL (2.4-5.1); Potassium 3.9 mMol/L (3.4-5.1); Sodium 136 mMol/L (136-145); Total Protein 7.2 gm/dL (5.7-8.2); eGFR > 60 See Note
[2024-09-13 08:20] LABS: Lymphocytes # (Auto) 4.2 Thou/mm3 (1.0-4.8)
[2024-09-13] MEDS: METOPROLOL TARTRATE 25 MG TABLET 50 MG PO ×2 (09:59→20:47)
[2024-09-13] MEDS: AZITHROMYCIN 250 MG TABLET PO (09:59)
[2024-09-13] MEDS: NAPH,KPH MBDB 1 PACKET (1.5 GM) PO ×2 (09:59→20:47)
[2024-09-13] MEDS: amLODIPine BESYLATE 5 MG TABLET 10 MG PO (09:59)
[2024-09-13] MEDS: PANTOPRAZOLE 40 MG TABLET PO (09:59)
[2024-09-13 11:35] LABS: Cocci Serology, IgM Negative (Negative)
--- NOTE | 2024-09-13 13:53 | ESPR_ITS ---
Documentation for date of: 09/13/24 Subjective Subjective Interval history: No overnight events. Patient seen examined at bedside, resting comfortably. Patient reports continuing to have hemoptysis, increased lethargy. Denies fevers, chills, nausea, vomiting, shortness of breath. Encourage patient to spend time in chair. Spoke to teller manager, reports negative QuantiFERON cocci testing prior to infliximab infusions. Considering CT tomorrow if patient does not show improvement. Exam Vital Signs Temp Pulse Resp BP Pulse Ox O2 Del Method O2 Flow Rate 98.2 F 75 22 H 136/71 H 97 Room Air 2 09/13/24 12:00 09/13/24 12:00 09/13/24 12:00 09/13/24 12:00 09/13/24 12:09/13/24 12:09/12/24 23:54 Narrative Exam PE: Gen: Well-developed and well-nourished. HEENT: NCAT, PERRLA, EOMI, MMM, anicteric conjunctivae. CVS: normal S1 and S2. RRR. No M/R/G. Resp: CTA B/L. No rhonchi, rales, crackles or wheezing. Abd: soft, non-tender, non-distended. MSK: Good ROM in BUE & BLE. No edema or rash. Neuro: CN II-XII grossly intact. Strength 5/5 in BUE & BLE. Alert and oriented x3. Psych: appropriate mood and affect. Objective Labs 09/13/24 05:37 09/13/24 05:37 Labs: Laboratory Results - last 24 hr 09/11/24 09/13/24 23:08 05:37 WBC 17.6 H D RBC 4.17 Hgb 13.5 Hct 39.2 MCV 94 MCH 32.4 MCHC 34.4 RDW Std Deviation 44.5 Plt Count 493 H D Neut % (Auto) 66 Lymph % (Auto) 24 [place] % (Auto) 9 Eos % (Auto) 0 Baso % (Auto) 0 Neut # (Auto) 11.5 H Lymph # (Auto) 4.2 [place] # (Auto) 1.5 H Eos # (Auto) 0.0 Baso # (Auto) 0.1 Immature Gran # (Auto) 0.27 H Absolute Nucleated RBC 0.00 Immature Gran % 2 H Nucleated RBC % 0 Sodium 136 Potassium 3.9 Chloride 105 Carbon Dioxide 22.7 Anion Gap 8 BUN 10 Creatinine 0.6 Estim Creat Clear Calc 95.0 eGFR > 60 BUN/Creatinine Ratio 17 Glucose 106 D Calculated Osmolality 270 L Calcium 8.9 Corrected Calcium 9.1 Phosphorus 2.3 L Magnesium 2.4 Total Bilirubin 0.4 AST 18 ALT 32 Alkaline Phosphatase 83 Total Protein 7.2 Albumin 3.7 Globulin 3.5 Albumin/Globulin Ratio 1.1 L Coccidioides IgM Ab Negative Quality Measures Quality Measures VTE prophylaxis Advance care planning discussed with:: patient Assessment & Plan Assessment Current Active Medications: Generic Name Dose Route Start Last Admin Trade Name Freq PRN Reason Stop Dose Admin Acetaminophen 650 mg 09/11/24 22:50 Acetaminophen 325 Mg Tablet PO 10/11/24 22:49 Q6H PRN Fever >101.5 Acetaminophen 650 mg 09/11/24 22:50 Acetaminophen 325 Mg Tablet PO 10/11/24 22:49 Q6H PRN PAIN SCALE 1-3 (mild Albuterol/Ipratropium 3 ml 09/11/24 22:50 Albuterol/Ipratropium (Duoneb) Rt Ruth 3 Ml Nebu INH 10/12/24 00:59 Q6HRRT PRN wheezing Amlodipine Besylate 10 mg 09/11/24 23:05 09/13/24 09:59 Amlodipine Besylate 5 Mg Tablet PO 10/11/24 23:04 10 mg QDAY MAGDY Administration Azithromycin 250 mg 09/12/24 09:00 09/13/24 09:59 Azithromycin 250 Mg Tablet PO 09/17/24 08:59 250 mg QDAY MAGDY Administration Benzonatate 200 mg 09/12/24 22:00 09/13/24 05:29 Benzonatate 100 Mg Capsule PO 09/19/24 21:59 200 mg Q8HR MAGDY Administration Protocol Divalproex Sodium 500 mg 09/12/24 22:00 09/13/24 05:[address] 500 Mg Tablet.Dr PO 10/12/24 21:59 500 mg TID MAGDY Administration Ceftriaxone Sodium 1,000 mg/ 50 mls @ 100 mls/hr 09/12/24 21:00 09/12/24 20:59 Sodium Chloride IV 09/19/24 08:59 100 mls/hr QDAY@2100 MAGDY Administration Labetalol HCl 10 mg 09/11/24 23:08 Labetalol Inj 5 Mg/Ml Vial 20 Ml IVP 10/11/24 23:07 Q2H PRN SBP >180mmHg Metoprolol Tartrate 50 mg 09/12/24 21:00 09/13/24 09:59 Metoprolol Tartrate 25 Mg Tablet PO 10/12/24 20:59 50 mg BID MAGDY Administration Ondansetron HCl 4 mg 09/11/24 22:50 Ondansetron Inj 2 Mg/Ml Inj 2 Ml IV 10/11/24 22:49 Q6H PRN NAUSEA OR VOMITING Protocol Pantoprazole Sodium 40 mg 09/12/24 09:00 09/13/24 09:59 Pantoprazole 40 Mg Tablet PO 10/12/24 08:59 40 mg QDAY MAGDY Administration Potassium Phos/Sodium Phos 1 packet 09/13/24 09:00 09/13/24 09:59 Naph,Kph Mbdb 1 Packet (1.5 Gm) PO 10/13/24 08:59 1 packet BID MAGDY Administration Sennosides 1 tab 09/11/24 22:50 Senna Tablet PO 10/11/24 22:49 QDAY PRN constipation Protocol Plan 64-year-old female patient with reportedly past medical history of COPD not on oxygen at home, hypertension, rheumatoid arthritis on Remicade infusion, A-fib on Eliquis, hypertension, bipolar disorder with suicidal ideation, osteoporosis, presented to the ED due to productive cough with tinge of blood in the sputum for the past 2 weeks. Patient was admitted to rule out TB. #Acute hypoxic respiratory failure, resolved #Sepsis ruled out #Community-acquired pneumonia #COPD exacerbation #TB rule out DDx: Pneumonia versus TB infection versus cocci versus neoplasm versus COPD exacerbation Patient met SIRS criteria with elevated heart rate, elevated WBCs, and pulmonary infiltrate, however sepsis was ruled out due to lack of endorgan damage including normal lactate. Patient presented with cough which is productive with tinge of blood, weight loss, history of exposure to TB however she was given anti-TB medications for 3 months Patient is on Remicade for rheumatoid arthritis which is a risk factor for TB reactivation, however patient likely had negative test of before beginning infusions. Patient also has long history of smoking, which he also increase the risk of pulmonary neoplasm. CT showed dense pneumonic consolidation versus pulmonary mass in the left lower lobe, 5.6 x 3.5 cm Spoke to patient's teller manager, patient had negative QuantiFERON and cocci testing prior to starting infliximab. If patient does not show improvement tomorrow, consider CT to reeval changes and pulmonary lesion. Cocci negative. -Telemetry -Ceftriaxone 1 g IV daily (started 09/11) -Azithromycin 50 mg p.o. daily (started 09/10) -Follow-up on the blood culture and sputum culture -Put patient on droplet precautions -Sent for AFB, follow-up on the results -DuoNebs every 6 hours as needed -Tylenol for fever -Oxygen to keep O2 saturation between 88 to 92% #History of hypertension -amlodipine 10 mg p.o. daily -Toprol tartrate 50 mg p.o. twice daily #History of A-fib #History of CAD Patient history as stated. Takes Plavix upon anticoag. Patient does not routinely see production operations inspector. -Because the patient has hemoptysis and has suspicious pulmonary lesion we will hold on Plavix at this time, consider resuming when clinically appropriate #History of bipolar disorder with suicidal ideation On evaluation patient denied any ideas to hurt herself or others Patient informed that she is taking Depakote as a mood stabilizer -Resume home meds: Depakote 500 mg p.o. 3 times daily #History of osteoporosis Patient on alendronate tablets weekly Plan -Consider resuming home medication alendronate when clinically appropriate FEN: Cardiac diet DVT ppx: SCDs GI ppx: Pantoprazole IV lines: PIV Code status: Full code Plan of care discussed with senior resident Dr. Babin PGY?[address] Hutchinson. Bogdan Ochoa MD PGY?1 Attending Provider Attestation/Addendum I have examined the patient, reviewed labs and imaging findings, discussed the case with the resident(s), and reviewed entered orders. I agree with the plan of care as outlined in this note, with these additional summaries/recommendations: Patient seen at bedside. No acute overnight events. Today patient still endorses mild hemoptysis and relatively unchanged. Patient admitted for active TB rule out. CTA chest showed dense pneumonic consolidation versus pulmonary mass in the left lower lobe 5.6X 3.5 cm. Patient is continued on IV antibiotics. I spoke with patient's teller manager Dr. Hendrix who reported patient had negative quant gold and cocci serology on 05/08/2024. Nonetheless QuantiFERON can be negative in active TB and we will await AFB results before isolation precautions can be revoked. We will repeat chest imaging in 1 to 2 days and if no improvement in pneumonic consolidation we will discuss with oncology/IR about possible biopsy. Patient reports she does not take Eliquis and takes Plavix for history of CAD. We will continue to hold Plavix for now given hemoptysis. Continue home antihypertensives. Patient also has a history of atrial fibrillation although not currently on NOAC. Continue home metoprolol. Rate currently controlled. Patient updated on the plan and in agreement. Repeat hematology and chemistry panel in AM. Dr. Evangelina MD
[2024-09-13] MEDS: ACETAMINOPHEN 325 MG TABLET 650 MG PO (20:56)
[2024-09-13] MEDS: cefTRIAXone 1,000 MG in SODIUM CHLORIDE 0.9% (Popper) 50 ML 100 MG IV (20:58)
[2024-09-14] VITALS (9 sets, daily range): BP systolic 112–155; BP diastolic 69–95; PULSE 65–94; RESP 16–98; TEMP 36.1–37.5; O2SAT 96–98; BMI 29.7
[2024-09-14] MEDS: BENZONATATE 100 MG CAPSULE 200 MG PO ×3 (05:30→20:49)
[2024-09-14] MEDS: DIVALPROEX SOD DR 500 MG TABLET.DR PO ×3 (05:30→20:49)
[2024-09-14 05:51] LABS: Basophils # (Auto) 0.1 Thou/mm3 (0.0-0.2); Basophils % (Auto) 0 % (0-2.5); Eosinophils # (Auto) 0.1 Thou/mm3 (0.0-0.5); Eosinophils % (Auto) 0 % (0-10); Hematocrit 37.7 % (36.0-46.0); Hemoglobin 13.1 g/dL (12.0-16.0); Immature Granulocytes % (Auto) 2 % (0-0); Immature Granulocytes Auto 0.19 Thou/mm3 (0.00-0.00); Lymphocytes # (Auto) 3.5 Thou/mm3 (1.0-4.8); Lymphocytes % (Auto) 28 % (10-50); Mean Corpuscular HGB Conc 34.7 g/dl (31.0-37.0); Mean Corpuscular Hemoglobin 32.7 pg (25.0-35.0); Mean Corpuscular Volume 94 fL (80-100); Monocytes # (Auto) 1.2 Thou/mm3 (0.0-0.8); Monocytes % (Auto) 10 % (0-12); Neutrophils # (Auto) 7.5 Thou/mm3 (1.8-7.7); Neutrophils % (Auto) 60 % (37-80); Nucleated Red Blood Cell % 0 /100 WBC (0); Platelet Count 388 Thou/mm3 (140-440); RDW Standard Deviation 44.3 fL (36.4-46.3); Red Blood Count 4.01 Miln/mm3 (4.00-5.20); White Blood Count 12.5 Thou/mm3 (3.6-11.0)
[2024-09-14 06:44] LABS: Alanine Aminotransferase 23 U/L (10-49); Albumin, Serum 3.5 gm/dL (3.4-4.8); Alkaline Phosphatase 78 U/L (46-116); Anion Gap 7 (7-16); Aspartate Amino Transferase 15 U/L (0-34); BUN/Creatinine Ratio 15 Ratio (12-20); Bilirubin,Total 0.4 mg/dL (0.3-1.2); Blood Urea Nitrogen 9 mg/dL (9-23); Calcium 8.7 mg/dL (8.3-10.6); Calcium (Corrected) 9.1 mg/dL (8.5-10.1); Carbon Dioxide 23.7 mMol/L (20.0-31.0); Chloride 106 mMol/L (98-107); Creatinine (Component) 0.6 mg/dL (0.6-1.3); Estimated Creatinine Clearance 93.8 mL/min (>60); Globulin 3.4 gm/dL (2.3-3.5); Glucose 88 mg/dL (74-106); Magnesium 2.3 mg/dL (1.6-2.6); Osmolality,Calculated 271 (275-295); Phosphorous 2.8 mg/dL (2.4-5.1); Potassium 4.1 mMol/L (3.4-5.1); Sodium 137 mMol/L (136-145); Total Protein 6.9 gm/dL (5.7-8.2); eGFR > 60 See Note
--- NOTE | 2024-09-14 07:22 | PD.RESPRO ---
Documentation for date of: 09/14/24 Subjective Subjective Interval history: Not overnight acute events This morning at the bedside, patient is AOx4, saturating well on room air, responding questions properly, tolerating p.o. states that she has a lot of cough and continued to have hemoptysis otherwise she stated that she feels much better, denies chest pain, palpitations, headache or any other associated symptoms different at the moment. Blood cultures has been negative after 48 hours, first AFB came back negative, pending mycobacterial cultures. Will continue IV Rocephin and azithromycin. Will repeat CT chest with contrast tomorrow for further follow-up. Exam Vital Signs Temp Pulse Resp BP Pulse Ox O2 Del Method O2 Flow Rate 97.6 F 72 24 H 112/71 96 Room Air 2 09/14/24 04:00 09/14/24 04:00 09/14/24 04:00 09/14/24 04:00 09/14/24 04:00 09/14/24 04:00 09/14/24 00:00 Narrative Exam General: No acute distress, well appearing, alert, interactive. HEENT: NC/AT, PERRL, EOMI, Good conjugate gaze, moist mucous membranes, oropharynx clear. Neck: Supple, No masses, No adenopathy, carotid pulse 2+ bilaterally without bruits, No JVD, normal range of motion. Chest: Symmetrical, atraumatic, and with equal expansion , Nontender on palpation no deformity and no crepitus. CVS: S1 and S2 present, irregularly irregular, No murmurs, rubs or gallops perceived during auscultation. Lungs: Normal respiratory effort, mobilizing secretions and coarse sounds on bilateral lung bases, mild occasional wheezing on left lung perceived during auscultation, No intercostal or subcostal retraction. Abdomen : Soft, no tenderness to palpation, no guarding ,no rebound, +BS, no organomegaly. Extremities: No edema, warm well perfused, normal tone and ROM, strength and sensation intact, cap refill less than 2, +2 dp equal bilaterally, able to move all 4 extremities spontaneously. Skin: Intact, no rashes, no lesions, no erythema or jaundice noted Neuro: AOx4,no focal neurologic deficits noted, GCS 15 Psych: Appropriate mood and affect. Objective Labs 09/15/24 04:20 09/15/24 04:20 Labs: Laboratory Results - last 24 hr 09/11/24 09/11/24 09/13/24 23:08 23:56 05:37 WBC RBC Hgb Hct MCV MCH MCHC RDW Std Deviation Plt Count Neut % (Auto) Lymph % (Auto) [place] % (Auto) Eos % (Auto) Baso % (Auto) Neut # (Auto) Lymph # (Auto) 4.2 [place] # (Auto) Eos # (Auto) Baso # (Auto) Immature Gran # (Auto) Absolute Nucleated RBC Immature Gran % Nucleated RBC % Sodium Potassium Chloride Carbon Dioxide Anion Gap BUN Creatinine Estim Creat Clear Calc eGFR BUN/Creatinine Ratio Glucose Calculated Osmolality Calcium Corrected Calcium Phosphorus Magnesium Total Bilirubin AST ALT Alkaline Phosphatase Total Protein Albumin Globulin Albumin/Globulin Ratio Coccidioides IgM Ab Negative Mycobacterial Culture See Feb Rpt 09/14/24 05:00 WBC 12.5 H D RBC 4.01 Hgb 13.1 Hct 37.7 MCV 94 MCH 32.7 MCHC 34.7 RDW Std Deviation 44.3 Plt Count 388 D Neut % (Auto) 60 Lymph % (Auto) 28 [place] % (Auto) 10 Eos % (Auto) 0 Baso % (Auto) 0 Neut # (Auto) 7.5 Lymph # (Auto) 3.5 [place] # (Auto) 1.2 H Eos # (Auto) 0.1 Baso # (Auto) 0.1 Immature Gran # (Auto) 0.19 H Absolute Nucleated RBC 0.00 Immature Gran % 2 H Nucleated RBC % 0 Sodium 137 Potassium 4.1 Chloride 106 Carbon Dioxide 23.7 Anion Gap 7 BUN 9 Creatinine 0.6 Estim Creat Clear Calc 93.8 eGFR > 60 BUN/Creatinine Ratio 15 Glucose 88 Calculated Osmolality 271 L Calcium 8.7 Corrected Calcium 9.1 Phosphorus 2.8 Magnesium 2.3 Total Bilirubin 0.4 AST 15 ALT 23 Alkaline Phosphatase 78 Total Protein 6.9 Albumin 3.5 Globulin 3.4 Albumin/Globulin Ratio 1.0 L Coccidioides IgM Ab Mycobacterial Culture Quality Measures Quality Measures VTE prophylaxis Advance care planning discussed with:: patient Assessment & Plan Assessment Current Active Medications: Generic Name Dose Route Start Last Admin Trade Name Freq PRN Reason Stop Dose Admin Acetaminophen 650 mg 09/11/24 22:50 Acetaminophen 325 Mg Tablet PO 10/11/24 22:49 Q6H PRN Fever >101.5 Acetaminophen 650 mg 09/11/24 22:50 09/13/24 20:56 Acetaminophen 325 Mg Tablet PO 10/11/24 22:49 650 mg Q6H PRN Administration PAIN SCALE 1-3 (mild Albuterol/Ipratropium 3 ml 09/11/24 22:50 Albuterol/Ipratropium (Duoneb) Rt Ruth 3 Ml Nebu INH 10/12/24 00:59 Q6HRRT PRN wheezing Amlodipine Besylate 10 mg 09/11/24 23:05 09/13/24 09:59 Amlodipine Besylate 5 Mg Tablet PO 10/11/24 23:04 10 mg QDAY MAGDY Administration Azithromycin 250 mg 09/12/24 09:00 09/13/24 09:59 Azithromycin 250 Mg Tablet PO 09/17/24 08:59 250 mg QDAY MAGDY Administration Benzonatate 200 mg 09/12/24 22:00 09/14/24 05:30 Benzonatate 100 Mg Capsule PO 09/19/24 21:59 200 mg Q8HR MAGDY Administration Protocol Divalproex Sodium 500 mg 09/12/24 22:00 09/14/24 05:[address] 500 Mg Tablet.Dr PO 10/12/24 21:59 500 mg TID MAGDY Administration Ceftriaxone Sodium 1,000 mg/ 50 mls @ 100 mls/hr 09/12/24 21:00 09/13/24 21:30 Sodium Chloride IV 09/19/24 08:59 Infused QDAY@2100 MAGDY Infusion Labetalol HCl 10 mg 09/11/24 23:08 Labetalol Inj 5 Mg/Ml Vial 20 Ml IVP 10/11/24 23:07 Q2H PRN SBP >180mmHg Metoprolol Tartrate 50 mg 09/12/24 21:00 09/13/24 20:47 Metoprolol Tartrate 25 Mg Tablet PO 10/12/24 20:59 50 mg BID MAGDY Administration Ondansetron HCl 4 mg 09/11/24 22:50 Ondansetron Inj 2 Mg/Ml Inj 2 Ml IV 10/11/24 22:49 Q6H PRN NAUSEA OR VOMITING Protocol Pantoprazole Sodium 40 mg 09/12/24 09:00 09/13/24 09:59 Pantoprazole 40 Mg Tablet PO 10/12/24 08:59 40 mg QDAY MAGDY Administration Potassium Phos/Sodium Phos 1 packet 09/13/24 09:00 09/13/24 20:47 [place],[facility] Mbdb 1 Packet (1.5 Gm) PO 10/13/24 08:59 1 packet BID MADGY Administration Sennosides 1 tab 09/11/24 22:50 Senna Tablet PO 10/11/24 22:49 QDAY PRN constipation Protocol Plan 64-year-old female patient with reportedly past medical history of COPD not on oxygen at home, hypertension, rheumatoid arthritis on Remicade infusion, A-fib on Eliquis, hypertension, bipolar disorder with suicidal ideation, osteoporosis, presented to the ED due to productive cough with tinge of blood in the sputum for the past 2 weeks. Patient was admitted to rule out TB. #Community-acquired pneumonia #COPD exacerbation #TB rule out DDx: Pneumonia versus TB infection versus cocci versus neoplasm versus COPD exacerbation Patient met SIRS criteria with elevated heart rate, elevated WBCs, and pulmonary infiltrate, however sepsis was ruled out due to lack of endorgan damage including normal lactate. Patient presented with cough which is productive with tinge of blood, weight loss, history of exposure to TB however she was given anti-TB medications for 3 months Patient is on Remicade for rheumatoid arthritis which is a risk factor for TB reactivation, however patient likely had negative test of before beginning infusions. Patient also has long history of smoking, which he also increase the risk of pulmonary neoplasm. CT showed dense pneumonic consolidation versus pulmonary mass in the left lower lobe, 5.6 x 3.5 cm Spoke to patient's direct support professional caregiver, patient had negative QuantiFERON and cocci testing prior to starting infliximab. If patient does not show improvement tomorrow, consider CT to reeval changes and pulmonary lesion. Cocci negative. Blood cultures 48 hours has been negative, first AFB smear has been negative pending 2 out of 3 AFB smears, pending mycobacterial culture. -Continue ceftriaxone 1 g IV daily (started 09/11) -Continue azithromycin 50 mg p.o. daily (started 09/10) -DuoNebs every 6 hours as needed -Tylenol for fever -Oxygen to keep O2 saturation between 88 to 92% -Repeat CT chest with contrast tomorrow #History of hypertension -amlodipine 10 mg p.o. daily -Metoprolol tartrate 50 mg p.o. twice daily #History of A-fib #History of CAD Patient history as stated. Takes Plavix upon anticoag. Patient does not routinely see manager global. -Because the patient has hemoptysis and has suspicious pulmonary lesion we will hold on Plavix at this time #History of bipolar disorder with suicidal ideation On evaluation patient denied any ideas to hurt herself or others Patient informed that she is taking Depakote as a mood stabilizer -Resume home meds: Depakote 500 mg p.o. 3 times daily #History of osteoporosis Patient on alendronate tablets weekly Plan -Consider resuming home medication alendronate when clinically appropriate #Acute hypoxic respiratory failure resolved #Sepsis ruled out FEN: Cardiac diet DVT ppx: SCDs GI ppx: Pantoprazole IV lines: PIV Code status: Full code Patient discussed with my attending Dr Evangelina Stahl MD PGY-3 Disclaimer: Despite multiple revisions, due to the dictation software being used, the document bellow may not be free of grammatical errors including phonetic/typographic errors. However, this does not deter from our commitment to providing health care in the patient's best interest in mind. Attending Provider Attestation/Addendum I have examined the patient, reviewed labs and imaging findings, discussed the case with the resident(s), and reviewed entered orders. I agree with the plan of care as outlined in this note, with these additional summaries/recommendations: Patient seen at bedside. No acute overnight events. Patient reports she is feeling better today although still endorsing mild hemoptysis. Patient admitted for active TB rule out. CTA chest showed dense pneumonic consolidation versus pulmonary mass in the left lower lobe 5.6X 3.5 cm. Patient is continued on IV antibiotics. I spoke with patient's direct support professional caregiver Dr. Hendrix who reported patient had negative quant gold and cocci serology on 05/08/2024. Nonetheless QuantiFERON can be negative in active TB. AFB Negative X 1 and will awaiting two additional AFBs before active TB can be ruled out. We will repeat chest imaging tomorrow and if no improvement in pneumonic consolidation we will discuss with oncology/IR about possible biopsy. Patient reports she does not take Eliquis and takes Plavix for history of CAD. We will continue to hold Plavix for now given hemoptysis. Continue home antihypertensives. Patient also has a history of atrial fibrillation although not currently on NOAC. Continue home metoprolol. Rate currently controlled. Patient updated on the plan and in agreement. Repeat hematology and chemistry panel in AM. Dr. Evangelina MD
[2024-09-14] MEDS: AZITHROMYCIN 250 MG TABLET PO (09:42)
[2024-09-14] MEDS: amLODIPine BESYLATE 5 MG TABLET 10 MG PO (09:42)
[2024-09-14] MEDS: PANTOPRAZOLE 40 MG TABLET PO (09:42)
[2024-09-14] MEDS: METOPROLOL TARTRATE 25 MG TABLET 50 MG PO ×2 (09:42→20:49)
[2024-09-14] MEDS: NAPH,KPH MBDB 1 PACKET (1.5 GM) PO ×2 (09:42→20:47)
[2024-09-14 11:29] LABS: Cocci Serology, IgG Negative (Negative)
--- NOTE | 2024-09-14 14:40 | PC.SS ---
Rounding: Pending CT
[2024-09-14] MEDS: cefTRIAXone 1,000 MG in SODIUM CHLORIDE 0.9% (Popper) 50 ML 100 MG IV (20:49)
--- NOTE | 2024-09-14 20:50 | PC.NURSE ---
Pt requested 2200 meds a few minutes early so she could go to sleep
--- NOTE | 2024-09-14 22:55 | ECHO_ITS ---
Transthoracic Echo Report Ht (in): 65 Wt (lb): 174 Exam Location: Portable Status: Inpatient Welding Tester: JANIS Turpin^^^^ Indications: Procedure Performed: BP: 122 / 69 HR: 76 Technical Quality: Very technically difficult study MEASUREMENTS (Male / Female) Normal Values 2D ECHO LV Diastolic Diameter PLAX 3.2 cm 4.2 - 5.9 / 3.9 - 5.3 cm LV Systolic Diameter PLAX 2.2 cm IVS Diastolic Thickness 0.7 cm 0.6 - 1.0 / 0.6 - 0.9 cm LVPW Diastolic Thickness 0.8 cm 0.6 - 1.0 / 0.6 - 0.9 cm LV Relative Wall Thickness 0.4 LVOT Diameter 1.7 cm Aortic Root Diameter 2.4 cm LA Systolic Diameter LX 2.5 cm 3.0 - 4.0 / 2.7 - 3.8 cm DOPPLER AV Peak Velocity 97.4 cm/s AV Peak Gradient 3.8 mmHg AV Mean Gradient 3.0 mmHg AV Velocity Time Integral 21.6 cm LVOT Peak Velocity 84.2 cm/s LVOT Peak Gradient 2.8 mmHg LVOT Velocity Time Integral 27.5 cm LVOT Cardiac Index 2464.5 cm?/min?m? AV Area Cont Eq vti 2.9 cm? AV Area Cont Eq pk 2.0 cm? PV Peak Velocity 89.3 cm/s PV Peak Gradient 3.2 mmHg RVOT Peak Velocity 42.1 cm/s FINDINGS Left Ventricle Normal left ventricular size, wall thickness, systolic function with no obvious regional wall motion abnormalities. There is grade I diastolic dysfunction of the left ventricle (impaired relaxation pattern). The left ventricular ejection fraction is normal, estimated at 55-60%. Right Ventricle The right ventricle is normal in size and systolic function. The estimated right ventricular systolic pressure, 20 mmHg. Left Atrium The left atrium is normal by two-dimensional, color flow and Doppler imaging with no structural abnormalities, no thrombus formation present. Right Atrium The right atrium is normal by two-dimensional imaging, color flow and Doppler imaging with no structural abnormalities, no thrombus formation present. Atrial Septum The interatrial septum appears normal with no evidence of a shunt. Aorta The aorta is normal by two-dimensional, color flow and Doppler interrogation. Mitral Valve Mitral annular calcification. Trace to mild mitral regurgitation. Aortic Valve The aortic valve is trileaflet and normal to two-dimensional, color flow and Doppler interrogation. Tricuspid Valve There is mild tricuspid valve regurgitation. Pulmonic Valve The pulmonic valve is not well visualized. There is no significant pulmonic valve regurgitation. Vessels The pulmonary artery appears normal. The inferior vena cava pulmonary and hepatic veins appear normal. Pericardium The pericardium is normal by two-dimensional imaging. There is no significant pericardial effusion. CONCLUSIONS indication: HX of Afib Technically difficult study The transthoracic study is normal by two-dimensional, color flow imaging and Doppler interrogation. Normal left ventricular size and function. Approximate ejection fraction is 60%. Trace mitral and trace tricuspid regurgitation No wall motion abnormalities noted. Tracy Crook (Electronically Signed) Final Date: 14 September 2024 14:11
[2024-09-15] VITALS (12 sets, daily range): BP systolic 131–138; BP diastolic 52–84; PULSE 68–100; RESP 12–99; TEMP 36.1–36.2; O2SAT 92–99
[2024-09-15] MEDS: BENZONATATE 100 MG CAPSULE 200 MG PO ×3 (05:17→20:38)
[2024-09-15] MEDS: DIVALPROEX SOD DR 500 MG TABLET.DR PO ×3 (05:17→20:39)
[2024-09-15 05:55] LABS: Basophils # (Auto) 0.1 Thou/mm3 (0.0-0.2); Basophils % (Auto) 1 % (0-2.5); Eosinophils % (Auto) 0 % (0-10); Hematocrit 38.7 % (36.0-46.0); Hemoglobin 13.3 g/dL (12.0-16.0); Immature Granulocytes % (Auto) 2 % (0-0); Immature Granulocytes Auto 0.28 Thou/mm3 (0.00-0.00); Lymphocytes # (Auto) 3.5 Thou/mm3 (1.0-4.8); Lymphocytes % (Auto) 25 % (10-50); Mean Corpuscular HGB Conc 34.4 g/dl (31.0-37.0); Mean Corpuscular Hemoglobin 32.8 pg (25.0-35.0); Mean Corpuscular Volume 96 fL (80-100); Monocytes # (Auto) 1.4 Thou/mm3 (0.0-0.8); Monocytes % (Auto) 10 % (0-12); Neutrophils # (Auto) 8.9 Thou/mm3 (1.8-7.7); Neutrophils % (Auto) 63 % (37-80); Nucleated Red Blood Cell % 0 /100 WBC (0); Platelet Count 516 Thou/mm3 (140-440); RDW Standard Deviation 44.8 fL (36.4-46.3); Red Blood Count 4.05 Miln/mm3 (4.00-5.20); White Blood Count 14.2 Thou/mm3 (3.6-11.0)
[2024-09-15 06:23] LABS: Alanine Aminotransferase 18 U/L (10-49); Albumin, Serum 3.6 gm/dL (3.4-4.8); Alkaline Phosphatase 76 U/L (46-116); Anion Gap 6 (7-16); Aspartate Amino Transferase < 10 U/L (0-34); BUN/Creatinine Ratio 11 Ratio (12-20); Bilirubin,Total 0.6 mg/dL (0.3-1.2); Blood Urea Nitrogen 8 mg/dL (9-23); Calcium 9.1 mg/dL (8.3-10.6); Calcium (Corrected) 9.4 mg/dL (8.5-10.1); Carbon Dioxide 24.5 mMol/L (20.0-31.0); Chloride 103 mMol/L (98-107); Creatinine (Component) 0.7 mg/dL (0.6-1.3); Estimated Creatinine Clearance 80.8 mL/min (>60); Globulin 3.5 gm/dL (2.3-3.5); Glucose 98 mg/dL (74-106); Magnesium 2.3 mg/dL (1.6-2.6); Osmolality,Calculated 264 (275-295); Phosphorous 2.8 mg/dL (2.4-5.1); Potassium 3.9 mMol/L (3.4-5.1); Sodium 133 mMol/L (136-145); Total Protein 7.1 gm/dL (5.7-8.2); eGFR > 60 See Note
[2024-09-15] MEDS: amLODIPine BESYLATE 5 MG TABLET 10 MG PO (09:27)
[2024-09-15] MEDS: NAPH,KPH MBDB 1 PACKET (1.5 GM) PO ×2 (09:27→20:39)
[2024-09-15] MEDS: PANTOPRAZOLE 40 MG TABLET PO (09:27)
[2024-09-15] MEDS: AZITHROMYCIN 250 MG TABLET PO (09:27)
[2024-09-15] MEDS: METOPROLOL TARTRATE 25 MG TABLET 50 MG PO ×2 (09:28→20:39)
--- NOTE | 2024-09-15 13:59 | ESPR_ITS ---
Documentation for date of: 09/15/24 Subjective Subjective Interval history: No overnight events. Patient seen and examined at bedside, resting comfortably. Patient continues to endorse cough, however feels better overall, ports decreased blood volume in hemoptysis. Repeat CT imaging pending. Initial AFB result negative, follow-up on 2 others. Follow-up repeat CT imaging. Exam Vital Signs Temp Pulse Resp BP Pulse Ox O2 Del Method O2 Flow Rate 97.1 F 72 18 137/76 H 99 Room Air 2 09/15/24 12:00 09/15/24 12:52 09/15/24 12:52 09/15/24 12:00 09/15/24 12:52 09/15/24 12:00 09/14/24 20:00 Narrative Exam PE: Gen: Well-developed and well-nourished. HEENT: NCAT, PERRLA, EOMI, MMM, anicteric conjunctivae. CVS: normal S1 and S2. RRR. No M/R/G. Resp: CTA B/L. No rhonchi, rales, crackles or wheezing. Abd: soft, non-tender, non-distended. MSK: Good ROM in BUE & BLE. No edema or rash. Neuro: CN II-XII grossly intact. Strength 5/5 in BUE & BLE. Alert and oriented x3. Psych: appropriate mood and affect. Objective Labs 09/16/24 05:58 09/16/24 05:58 Labs: Laboratory Results - last 24 hr 09/15/24 04:20 WBC 14.2 H RBC 4.05 Hgb 13.3 Hct 38.7 MCV 96 MCH 32.8 MCHC 34.4 RDW Std Deviation 44.8 Plt Count 516 H D Neut % (Auto) 63 Lymph % (Auto) 25 [place] % (Auto) 10 Eos % (Auto) 0 Baso % (Auto) 1 Neut # (Auto) 8.9 H Lymph # (Auto) 3.5 [place] # (Auto) 1.4 H Eos # (Auto) 0.0 Baso # (Auto) 0.1 Immature Gran # (Auto) 0.28 H Absolute Nucleated RBC 0.00 Immature Gran % 2 H Nucleated RBC % 0 Sodium 133 L Potassium 3.9 Chloride 103 Carbon Dioxide 24.5 Anion Gap 6 L BUN 8 L Creatinine 0.7 Estim Creat Clear Calc 80.8 eGFR > 60 BUN/Creatinine Ratio 11 L Glucose 98 Calculated Osmolality 264 L Calcium 9.1 Corrected Calcium 9.4 Phosphorus 2.8 Magnesium 2.3 Total Bilirubin 0.6 AST < 10 ALT 18 Alkaline Phosphatase 76 Total Protein 7.1 Albumin 3.6 Globulin 3.5 Albumin/Globulin Ratio 1.0 L Quality Measures Quality Measures VTE prophylaxis Advance care planning discussed with:: patient Assessment & Plan Assessment Current Active Medications: Generic Name Dose Route Start Last Admin Trade Name Freq PRN Reason Stop Dose Admin Acetaminophen 650 mg 09/11/24 22:50 Acetaminophen 325 Mg Tablet PO 10/11/24 22:49 Q6H PRN Fever >101.5 Acetaminophen 650 mg 09/11/24 22:50 09/13/24 20:56 Acetaminophen 325 Mg Tablet PO 10/11/24 22:49 650 mg Q6H PRN Administration PAIN SCALE 1-3 (mild Albuterol/Ipratropium 3 ml 09/11/24 22:50 Albuterol/Ipratropium (Duoneb) Rt Ruth 3 Ml Nebu INH 10/12/24 00:59 Q6HRRT PRN wheezing Amlodipine Besylate 10 mg 09/11/24 23:05 09/15/24 09:27 Amlodipine Besylate 5 Mg Tablet PO 10/11/24 23:04 10 mg QDAY MAGDY Administration Azithromycin 250 mg 09/12/24 09:00 09/15/24 09:27 Azithromycin 250 Mg Tablet PO 09/17/24 08:59 250 mg QDAY MAGDY Administration Benzonatate 200 mg 09/12/24 22:00 09/15/24 05:17 Benzonatate 100 Mg Capsule PO 09/19/24 21:59 200 mg Q8HR MAGDY Administration Protocol Divalproex Sodium 500 mg 09/12/24 22:00 09/15/24 05:[address] 500 Mg Tablet.Dr PO 10/12/24 21:59 500 mg TID MAGDY Administration Guaifenesin 100 mg 09/14/24 14:51 Guaifenesin Syrup 200 Mg/10 Ml Udc PO 10/14/24 14:50 QID PRN COUGH Protocol Ceftriaxone Sodium 1,000 mg/ 50 mls @ 100 mls/hr 09/12/24 21:00 09/14/24 20:49 Sodium Chloride IV 09/19/24 08:59 100 mls/hr QDAY@2100 MAGDY Administration Labetalol HCl 10 mg 09/11/24 23:08 Labetalol Inj 5 Mg/Ml Vial 20 Ml IVP 10/11/24 23:07 Q2H PRN SBP >180mmHg Metoprolol Tartrate 50 mg 09/12/24 21:00 09/15/24 09:28 Metoprolol Tartrate 25 Mg Tablet PO 10/12/24 20:59 50 mg BID MAGDY Administration Ondansetron HCl 4 mg 09/11/24 22:50 Ondansetron Inj 2 Mg/Ml Inj 2 Ml IV 10/11/24 22:49 Q6H PRN NAUSEA OR VOMITING Protocol Pantoprazole Sodium 40 mg 09/12/24 09:00 09/15/24 09:27 Pantoprazole 40 Mg Tablet PO 10/12/24 08:59 40 mg QDAY MAGDY Administration Potassium Phos/Sodium Phos 1 packet 09/13/24 09:00 09/15/24 09:27 [place],[facility] Mbdb 1 Packet (1.5 Gm) PO 10/13/24 08:59 1 packet BID MAGDY Administration Sennosides 1 tab 09/11/24 22:50 Senna Tablet PO 10/11/24 22:49 QDAY PRN constipation Protocol Plan 64-year-old female patient with reportedly past medical history of COPD not on oxygen at home, hypertension, rheumatoid arthritis on Remicade infusion, A-fib on Eliquis, hypertension, bipolar disorder with suicidal ideation, osteoporosis, presented to the ED due to productive cough with tinge of blood in the sputum for the past 2 weeks. Patient was admitted to rule out TB. #Community-acquired pneumonia #COPD exacerbation #TB rule out DDx: Pneumonia versus TB infection versus cocci versus neoplasm versus COPD exacerbation Patient met SIRS criteria with elevated heart rate, elevated WBCs, and pulmonary infiltrate, however sepsis was ruled out due to lack of endorgan damage including normal lactate. Patient presented with cough which is productive with tinge of blood, weight loss, history of exposure to TB however she was given anti-TB medications for 3 months Patient is on Remicade for rheumatoid arthritis which is a risk factor for TB reactivation, however patient likely had negative test of before beginning infusions. Patient also has long history of smoking, which he also increase the risk of pulmonary neoplasm. CT showed dense pneumonic consolidation versus pulmonary mass in the left lower lobe, 5.6 x 3.5 cm Spoke to patient's security system installer, patient had negative QuantiFERON and cocci testing prior to starting infliximab. If patient does not show improvement tomorrow, consider CT to reeval changes and pulmonary lesion. Cocci negative. Blood cultures 48 hours has been negative, first AFB smear has been negative pending 2 out of 3 AFB smears, pending mycobacterial culture. -Continue ceftriaxone 1 g IV daily (started 09/11) -Continue azithromycin 50 mg p.o. daily (started 09/10) -DuoNebs every 6 hours as needed -Tylenol for fever -Oxygen to keep O2 saturation between 88 to 92% -Repeat CT chest with contrast today #History of hypertension -amlodipine 10 mg p.o. daily -Metoprolol tartrate 50 mg p.o. twice daily #History of A-fib #History of CAD Patient history as stated. Takes Plavix as anticoag. Patient does not routinely see marketing specialist. -Because the patient has hemoptysis and has suspicious pulmonary lesion we will hold on Plavix at this time #History of bipolar disorder with suicidal ideation On evaluation patient denied any ideas to hurt herself or others Patient informed that she is taking Depakote as a mood stabilizer -Resume home meds: Depakote 500 mg p.o. 3 times daily #History of osteoporosis Patient on alendronate tablets weekly -Consider resuming home medication alendronate when clinically appropriate #Acute hypoxic respiratory failure resolved #Sepsis ruled out FEN: Cardiac diet DVT ppx: SCDs GI ppx: Pantoprazole IV lines: PIV Code status: Full code Plan of care discussed with attending Dr. Hutchinson. Bogdan Damon MD PGY?1 Disclaimer: Despite multiple revisions, due to the dictation software being used, the document bellow may not be free of grammatical errors including phonetic/typographic errors. However, this does not deter from our commitment to providing health care in the patient's best interest in mind. Attending Provider Attestation/Addendum I have examined the patient, reviewed labs and imaging findings, discussed the case with the resident(s), and reviewed entered orders. I agree with the plan of care as outlined in this note, with these additional summaries/recommendations: Patient seen at bedside. No acute overnight events. Patient continues to endorse improvement in hemoptysis although not resolved. Patient admitted for active TB rule out. CTA chest showed dense pneumonic consolidation versus pulmonary mass in the left lower lobe 5.6X 3.5 cm. Patient is continued on IV antibiotics. AFB Negative X 1 and will await two additional AFBs results before active TB can be ruled out. We will repeat CT chest today and if no improvement in pneumonic consolidation we will discuss with oncology/IR about possible biopsy. Patient reports she does not take Eliquis and takes Plavix for history of CAD. We will continue to hold Plavix for now given hemoptysis. Continue home antihypertensives. Patient also has a history of atrial fibrillation although not currently on NOAC. Continue home metoprolol. Rate currently controlled. Patient updated on the plan and in agreement. Repeat hematology and chemistry panel in AM. Dr. Evangelina MD
--- NOTE | 2024-09-15 14:28 | XR_ITS ---
Examination: CT chest, without intravenous contrast. Sagittal and coronal 2-D reconstructions. Exam date and time: September 15, 2024 1507 hrs. Comparison September 11, 2024 Indications: Coughing up blood with shortness of breath beginning 2 weeks ago CTDI:vol (mGy) 11.4 DLP: (mGycm) 458 Technique: Multiple 3.0 mm axial sections of the chest to been obtained. Bone and lung density settings are obtained. Sagittal and coronal 2-D reconstructions have been obtained. Low dose protocols were performed. One or more of the following dose reduction techniques were used; automated exposure control, adjustment of the mA and/or KV according to patient size, use of iterative reconstruction technique. Findings: No thoracic aortic aneurysm dilatation Pulmonary artery segments are not enlarged No paratracheal tracheobronchial or bronchopulmonary adenopathy Dense consolidation versus pulmonary mass in the left lower lobe again noted, 5.2 x 3.4 cm No visualized liver or splenic lesion Absent gallbladder No pancreatic or adrenal mass Impression: Dense consolidation versus pulmonary mass in the left lower lobe again noted This mass is amenable to CT-guided percutaneous biopsy aspiration as clinically warranted
[2024-09-15] MEDS: NICOTINE PATCH 21 MG/24 HR PATCH.TD24 TOP (14:29)
[2024-09-15] MEDS: cefTRIAXone 1,000 MG in SODIUM CHLORIDE 0.9% (Popper) 50 ML 100 MG IV (20:39)
--- NOTE | 2024-09-15 20:45 | PC.NURSE ---
j Patient again requested medications early so she can sleep
[2024-09-16] VITALS (9 sets, daily range): BP systolic 118–138; BP diastolic 75–88; PULSE 68–102; RESP 17–24; TEMP 36.1–36.3; O2SAT 68–97; BMI 29.8
[2024-09-16] MEDS: BENZONATATE 100 MG CAPSULE 200 MG PO ×3 (05:23→22:02)
[2024-09-16] MEDS: DIVALPROEX SOD DR 500 MG TABLET.DR PO ×3 (05:23→22:02)
[2024-09-16 06:26] LABS: Basophils # (Auto) 0.1 Thou/mm3 (0.0-0.2); Basophils % (Auto) 0 % (0-2.5); Eosinophils # (Auto) 0.1 Thou/mm3 (0.0-0.5); Eosinophils % (Auto) 0 % (0-10); Hematocrit 39.7 % (36.0-46.0); Hemoglobin 13.9 g/dL (12.0-16.0); Immature Granulocytes % (Auto) 1 % (0-0); Immature Granulocytes Auto 0.24 Thou/mm3 (0.00-0.00); Lymphocytes # (Auto) 3.9 Thou/mm3 (1.0-4.8); Lymphocytes % (Auto) 23 % (10-50); Mean Corpuscular Hemoglobin 32.7 pg (25.0-35.0); Mean Corpuscular Volume 93 fL (80-100); Monocytes # (Auto) 1.4 Thou/mm3 (0.0-0.8); Monocytes % (Auto) 8 % (0-12); Neutrophils # (Auto) 11.1 Thou/mm3 (1.8-7.7); Neutrophils % (Auto) 66 % (37-80); Nucleated Red Blood Cell % 0 /100 WBC (0); Platelet Count 407 Thou/mm3 (140-440); RDW Standard Deviation 43.6 fL (36.4-46.3); Red Blood Count 4.25 Miln/mm3 (4.00-5.20); White Blood Count 16.8 Thou/mm3 (3.6-11.0)
[2024-09-16 06:57] LABS: Alanine Aminotransferase 12 U/L (10-49); Albumin, Serum 3.8 gm/dL (3.4-4.8); Alkaline Phosphatase 76 U/L (46-116); Anion Gap 8 (7-16); Aspartate Amino Transferase 10 U/L (0-34); BUN/Creatinine Ratio 16 Ratio (12-20); Bilirubin,Total 0.6 mg/dL (0.3-1.2); Blood Urea Nitrogen 11 mg/dL (9-23); Calcium 9.4 mg/dL (8.3-10.6); Calcium (Corrected) 9.6 mg/dL (8.5-10.1); Carbon Dioxide 26.3 mMol/L (20.0-31.0); Chloride 100 mMol/L (98-107); Creatinine (Component) 0.7 mg/dL (0.6-1.3); Estimated Creatinine Clearance 80.5 mL/min (>60); Globulin 3.7 gm/dL (2.3-3.5); Glucose 114 mg/dL (74-106); Magnesium 2.1 mg/dL (1.6-2.6); Osmolality,Calculated 268 (275-295); Phosphorous 3.3 mg/dL (2.4-5.1); Potassium 4.1 mMol/L (3.4-5.1); Sodium 134 mMol/L (136-145); Total Protein 7.5 gm/dL (5.7-8.2); eGFR > 60 See Note
--- NOTE | 2024-09-16 07:05 | ESPR_ITS ---
Documentation for date of: 09/16/24 Subjective Subjective Interval history: Not overnight acute events This morning at the bedside, patient is AOx4, saturating well on room air, responding questions properly, tolerating p.o. denies any acute complaints at the moment only mild cough. Pending AFBs and mycobacterial cultures. Sputum Gram culture grew MRSA for which patient initially was started on IV vancomycin otherwise patient started to present itchiness for which vancomycin was discontinue. And antibiotics was switched for IV, linezolid 600 mg twice daily. Repeat CT chest without contrast showed Consolidation dense consolidation versus pulmonary mass in the left lower lobe measuring 5.2 x 3.4 cm oncology was consulted Dr. Engel. Exam Vital Signs Temp Pulse Resp BP Pulse Ox O2 Del Method O2 Flow Rate 97.1 F 70 24 H 123/80 96 Nasal Cannula 2 09/16/24 04:00 09/16/24 04:00 09/16/24 04:00 09/16/24 04:00 09/16/24 04:00 09/16/24 04:00 09/16/24 04:00 Narrative Exam General: No acute distress, well appearing, alert, interactive. HEENT: NC/AT, PERRL, EOMI, Good conjugate gaze, moist mucous membranes, oropharynx clear. Neck: Supple, No masses, No adenopathy, carotid pulse 2+ bilaterally without bruits, No JVD, normal range of motion. Chest: Symmetrical, atraumatic, and with equal expansion , Nontender on palpation no deformity and no crepitus. CVS: S1 and S2 present, irregularly irregular, No murmurs, rubs or gallops perceived during auscultation. Lungs: Normal respiratory effort, mild occasional wheezing on bilateral lung bases and anterior chest perceived during auscultation, No intercostal or subcostal retraction. Abdomen : Soft, no tenderness to palpation, no guarding ,no rebound, +BS, no organomegaly. Extremities: No edema, warm well perfused, normal tone and ROM, strength and sensation intact, cap refill less than 2, +2 dp equal bilaterally, able to move all 4 extremities spontaneously. Skin: Intact, no rashes, no lesions, no erythema or jaundice noted Neuro: AOx4,no focal neurologic deficits noted, GCS 15 Psych: Appropriate mood and affect. Objective Labs 09/16/24 05:58 09/16/24 05:58 Labs: Laboratory Results - last 24 hr 09/16/24 05:58 WBC 16.8 H RBC 4.25 Hgb 13.9 Hct 39.7 MCV 93 MCH 32.7 MCHC 35.0 RDW Std Deviation 43.6 Plt Count 407 D Neut % (Auto) 66 Lymph % (Auto) 23 [place] % (Auto) 8 Eos % (Auto) 0 Baso % (Auto) 0 Neut # (Auto) 11.1 H Lymph # (Auto) 3.9 [place] # (Auto) 1.4 H Eos # (Auto) 0.1 Baso # (Auto) 0.1 Immature Gran # (Auto) 0.24 H Absolute Nucleated RBC 0.00 Immature Gran % 1 H Nucleated RBC % 0 Sodium 134 L Potassium 4.1 Chloride 100 Carbon Dioxide 26.3 Anion Gap 8 BUN 11 Creatinine 0.7 Estim Creat Clear Calc 80.5 eGFR > 60 BUN/Creatinine Ratio 16 Glucose 114 H Calculated Osmolality 268 L Calcium 9.4 Corrected Calcium 9.6 Phosphorus 3.3 Magnesium 2.1 Total Bilirubin 0.6 AST 10 ALT 12 Alkaline Phosphatase 76 Total Protein 7.5 Albumin 3.8 Globulin 3.7 H Albumin/Globulin Ratio 1.0 L Quality Measures Quality Measures VTE prophylaxis Advance care planning discussed with:: patient Assessment & Plan Assessment Current Active Medications: Generic Name Dose Route Start Last Admin Trade Name Freq PRN Reason Stop Dose Admin Acetaminophen 650 mg 09/11/24 22:50 Acetaminophen 325 Mg Tablet PO 10/11/24 22:49 Q6H PRN Fever >101.5 Acetaminophen 650 mg 09/11/24 22:50 09/13/24 20:56 Acetaminophen 325 Mg Tablet PO 10/11/24 22:49 650 mg Q6H PRN Administration PAIN SCALE 1-3 (mild Albuterol/Ipratropium 3 ml 09/11/24 22:50 Albuterol/Ipratropium (Duoneb) Rt Ruth 3 Ml Nebu INH 10/12/24 00:59 Q6HRRT PRN wheezing Amlodipine Besylate 10 mg 09/11/24 23:05 09/15/24 09:27 Amlodipine Besylate 5 Mg Tablet PO 10/11/24 23:04 10 mg QDAY MAGDY Administration Azithromycin 250 mg 09/12/24 09:00 09/15/24 09:27 Azithromycin 250 Mg Tablet PO 09/17/24 08:59 250 mg QDAY MAGDY Administration Benzonatate 200 mg 09/12/24 22:00 09/16/24 05:23 Benzonatate 100 Mg Capsule PO 09/19/24 21:59 200 mg Q8HR MAGDY Administration Protocol Divalproex Sodium 500 mg 09/12/24 22:00 09/16/24 05:[address] 500 Mg Tablet.Dr PO 10/12/24 21:59 500 mg TID MAGDY Administration Guaifenesin 100 mg 09/14/24 14:51 Guaifenesin Syrup 200 Mg/10 Ml Udc PO 10/14/24 14:50 QID PRN COUGH Protocol Ceftriaxone Sodium 1,000 mg/ 50 mls @ 100 mls/hr 09/12/24 21:00 09/15/24 21:09 Sodium Chloride IV 09/19/24 08:59 Infused QDAY@2100 MAGDY Infusion Labetalol HCl 10 mg 09/11/24 23:08 Labetalol Inj 5 Mg/Ml Vial 20 Ml IVP 10/11/24 23:07 Q2H PRN SBP >180mmHg Metoprolol Tartrate 50 mg 09/12/24 21:00 09/15/24 20:39 Metoprolol Tartrate 25 Mg Tablet PO 10/12/24 20:59 50 mg BID MAGDY Administration Nicotine 21 mg 09/15/24 14:30 09/15/24 14:29 Nicotine Patch 21 Mg/24 Hr Patch.Td24 TOP 10/15/24 14:29 21 mg QDAY MAGDY Administration Ondansetron HCl 4 mg 09/11/24 22:50 Ondansetron Inj 2 Mg/Ml Inj 2 Ml IV 10/11/24 22:49 Q6H PRN NAUSEA OR VOMITING Protocol Pantoprazole Sodium 40 mg 09/12/24 09:00 09/15/24 09:27 Pantoprazole 40 Mg Tablet PO 10/12/24 08:59 40 mg QDAY MAGDY Administration Potassium Phos/Sodium Phos 1 packet 09/13/24 09:00 09/15/24 20:39 Naph,Kph Mbdb 1 Packet (1.5 Gm) PO 10/13/24 08:59 1 packet BID MAGDY Administration Sennosides 1 tab 09/11/24 22:50 Senna Tablet PO 10/11/24 22:49 QDAY PRN constipation Protocol Plan 64-year-old female patient with reportedly past medical history of COPD not on oxygen at home, hypertension, rheumatoid arthritis on Remicade infusion, A-fib on Eliquis, hypertension, bipolar disorder with suicidal ideation, osteoporosis, presented to the ED due to productive cough with tinge of blood in the sputum for the past 2 weeks. Patient was admitted to rule out TB. #Community-acquired pneumonia #COPD exacerbation #TB rule out #MRSA pneumonia DDx: Pneumonia versus TB infection versus cocci versus neoplasm versus COPD exacerbation Patient met SIRS criteria with elevated heart rate, elevated WBCs, and pulmonary infiltrate, however sepsis was ruled out due to lack of endorgan damage including normal lactate. Patient presented with cough which is productive with tinge of blood, weight loss, history of exposure to TB however she was given anti-TB medications for 3 months Patient is on Remicade for rheumatoid arthritis which is a risk factor for TB reactivation, however patient likely had negative test of before beginning infusions. Patient also has long history of smoking, which he also increase the risk of pulmonary neoplasm. CT showed dense pneumonic consolidation versus pulmonary mass in the left lower lobe, 5.6 x 3.5 cm Spoke to patient's pharmacy intake coordinator, patient had negative QuantiFERON and cocci testing prior to starting infliximab. If patient does not show improvement tomorrow, consider CT to reeval changes and pulmonary lesion. Cocci negative. Blood cultures 48 hours has been negative, first AFB smear has been negative pending 2 out of 3 AFB smears, pending mycobacterial culture. Sputum culture and Gram showed MRSA for which patient was started on IV vancomycin otherwise patient complaining of itchiness and antibiotic was switched for IV linezolid. Repeat CT chest showed dense consolidation versus pulmonary mass in the left lower lobe measuring 5.2 x 3.4 cm. Oncologist was consulted with greatly appreciate recommendations -DC ceftriaxone ( 09/11-) -Continue azithromycin 50 mg p.o. daily (started 09/10) -Started IV linezolid 600 mg twice daily (09/16) -DuoNebs every 6 hours as needed -Tylenol for fever -Oxygen to keep O2 saturation between 88 to 92% #History of hypertension -amlodipine 10 mg p.o. daily -Metoprolol tartrate 50 mg p.o. twice daily #History of A-fib #History of CAD Patient history as stated. Takes Plavix as anticoag. Patient does not routinely see clinic administrator. -Because the patient has hemoptysis and has suspicious pulmonary lesion we will hold on Plavix at this time #History of bipolar disorder with suicidal ideation On evaluation patient denied any ideas to hurt herself or others Patient informed that she is taking Depakote as a mood stabilizer -Resume home meds: Depakote 500 mg p.o. 3 times daily #History of osteoporosis Patient on alendronate tablets weekly -Consider resuming home medication alendronate when clinically appropriate #Acute hypoxic respiratory failure resolved #Sepsis ruled out FEN: Cardiac diet DVT ppx: SCDs GI ppx: Pantoprazole IV lines: PIV Code status: Full code Patient discussed with my attending Dr Marge Stahl MD PGY-3 Disclaimer: Despite multiple revisions, due to the dictation software being used, the document bellow may not be free of grammatical errors including phonetic/typographic errors. However, this does not deter from our commitment to providing health care in the patient's best interest in mind. Attending Provider Attestation/Addendum I have examined the patient, reviewed labs and imaging findings, discussed the case with the resident(s), and reviewed entered orders. I agree with the plan of care as outlined in this note, with these additional summaries/recommendations: Patient seen at bedside. No acute overnight events. Patient continues to endorse improvement in hemoptysis although not resolved. Patient admitted for active TB rule out. CTA chest on admission showed dense pneumonic consolidation versus pulmonary mass in the left lower lobe 5.6X 3.5 cm. Patient has been receiving antibiotics although sputum culture grew MRSA which is interesting as MRSA screen is negative. Nonetheless we will adjust antibiotics to cover MRSA. Increasing WBC count likely secondary to inadequate abx coverage versus possible malignancy. AFB Negative X 1 and will await two additional AFBs results before active TB can be ruled out. Repeat Chest CT yesterday again showed dense consolidation versus pulmonary mass in the left lower lobe which is amenable to biopsy. We will consult oncology, recommendations appreciated. Patient reports she does not take Eliquis and takes Plavix for history of CAD. We will continue to hold Plavix for now given hemoptysis. Continue home antihypertensives. Patient also has a history of atrial fibrillation although not currently on NOAC. Continue home metoprolol. Rate currently controlled. Patient updated on the plan and in agreement. Repeat hematology and chemistry panel in AM. Dr. Evangelina MD
[2024-09-16] MEDS: VANCOMYCIN/D5W 1,250 MG IVPB 250 ML 120 MG IV (08:30)
[2024-09-16] MEDS: NAPH,KPH MBDB 1 PACKET (1.5 GM) PO ×2 (09:11→22:02)
[2024-09-16] MEDS: NICOTINE PATCH 21 MG/24 HR PATCH.TD24 TOP (09:11)
[2024-09-16] MEDS: amLODIPine BESYLATE 5 MG TABLET 10 MG PO (09:12)
[2024-09-16] MEDS: PANTOPRAZOLE 40 MG TABLET PO (09:12)
[2024-09-16] MEDS: METOPROLOL TARTRATE 25 MG TABLET 50 MG PO ×2 (09:12→22:02)
[2024-09-16] MEDS: AZITHROMYCIN 250 MG TABLET PO (09:12)
[2024-09-16] MEDS: DiphenhydrAMINE INJ 50 MG/ML VIAL 25 MG IVP (10:19)
[2024-09-16] MEDS: LINEZOLID 600 MG IVPB 600 MG/300 ML BAG 300 MG IV ×2 (10:38→22:01)
[2024-09-17] VITALS (11 sets, daily range): BP systolic 122–150; BP diastolic 56–88; PULSE 60–90; RESP 17–22; TEMP 35.9–36.9; O2SAT 94–98
[2024-09-17] MEDS: BENZONATATE 100 MG CAPSULE 200 MG PO ×3 (05:32→21:41)
[2024-09-17] MEDS: DIVALPROEX SOD DR 500 MG TABLET.DR PO ×3 (05:33→21:41)
[2024-09-17 05:56] LABS: Basophils # (Auto) 0.1 Thou/mm3 (0.0-0.2); Basophils % (Auto) 0 % (0-2.5); Eosinophils # (Auto) 0.1 Thou/mm3 (0.0-0.5); Eosinophils % (Auto) 1 % (0-10); Hematocrit 37.8 % (36.0-46.0); Hemoglobin 13.2 g/dL (12.0-16.0); Immature Granulocytes % (Auto) 2 % (0-0); Immature Granulocytes Auto 0.29 Thou/mm3 (0.00-0.00); Lymphocytes # (Auto) 3.9 Thou/mm3 (1.0-4.8); Lymphocytes % (Auto) 28 % (10-50); Mean Corpuscular HGB Conc 34.9 g/dl (31.0-37.0); Mean Corpuscular Hemoglobin 32.9 pg (25.0-35.0); Mean Corpuscular Volume 94 fL (80-100); Monocytes # (Auto) 1.2 Thou/mm3 (0.0-0.8); Monocytes % (Auto) 9 % (0-12); Neutrophils # (Auto) 8.8 Thou/mm3 (1.8-7.7); Neutrophils % (Auto) 61 % (37-80); Nucleated Red Blood Cell % 0 /100 WBC (0); Platelet Count 406 Thou/mm3 (140-440); RDW Standard Deviation 44.3 fL (36.4-46.3); Red Blood Count 4.01 Miln/mm3 (4.00-5.20); White Blood Count 14.3 Thou/mm3 (3.6-11.0)
[2024-09-17 06:24] LABS: Alanine Aminotransferase 13 U/L (10-49); Albumin, Serum 3.5 gm/dL (3.4-4.8); Albumin/Globulin Ratio 0.9 (1.2-2.2); Alkaline Phosphatase 69 U/L (46-116); Anion Gap 10 (7-16); Aspartate Amino Transferase 12 U/L (0-34); BUN/Creatinine Ratio 20 Ratio (12-20); Bilirubin,Total 0.6 mg/dL (0.3-1.2); Blood Urea Nitrogen 12 mg/dL (9-23); Calcium 9.5 mg/dL (8.3-10.6); Calcium (Corrected) 9.9 mg/dL (8.5-10.1); Carbon Dioxide 25.3 mMol/L (20.0-31.0); Chloride 100 mMol/L (98-107); Creatinine (Component) 0.6 mg/dL (0.6-1.3); Estimated Creatinine Clearance 94.3 mL/min (>60); Globulin 3.7 gm/dL (2.3-3.5); Glucose 94 mg/dL (74-106); Osmolality,Calculated 269 (275-295); Phosphorous 3.2 mg/dL (2.4-5.1); Sodium 135 mMol/L (136-145); Total Protein 7.2 gm/dL (5.7-8.2); eGFR > 60 See Note
--- NOTE | 2024-09-17 06:45 | PD.ONCCONS ---
HPI Data of Consult Consult date: 09/17/24 Requesting Physician: Dimas Hutchinson MD Primary Care Provider: Iwona Song NP Consult Narrative Reason for consult: Suspected lung malignancy History of present illness: Patient is 64-year-old longtime smoker admitted with acute hypoxic respiratory failure and suspected sepsis secondary to pneumonia. CT scan 09/15/2024 revealed dense consolidation versus pulmonary mass left lower lobe 5.6 x 3.5 cm amenable to biopsy. Sepsis ruled out due to lack of endorgan damage including normal lactate. Patient currently receiving antibiotics and DuoNeb with improved symptoms. Hypertension and A-fib being controlled. A.m. CBC 14.3 WBC hemoglobin 13.2 platelets 460,000. Coag PT within normal limits. Patient taking Plavix as anticoag it is currently being held due to hemoptysis. Patient now referred for oncological consultation. Patient seen at [facility] a year ago and had suspected liver malignancy but CT biopsy 10/19/2023 was negative for malignancy. cc:: cc: Dimas Hutchinson MD Past Medical History Social History SOCIAL: Long history of heavy smoking greater than 30 pack years; Past Medical History Comments PMH COMMENT: 1. COPD hypertension rheumatoid arthritis A-fib hypertension bipolar disorder. Meds Home Medications and Allergies Home Medications ?Medication ?Instructions ?Recorded ?Confirmed ?Type albuterol sulfate 90 mcg/actuation 2 puff inhalation QID #0 03/05/15 09/12/24 History aerosol inhaler (ProAir HFA) inhalations loratadine 10 mg tablet (Claritin) 10 mg PO QDAY #0 tabs 03/05/15 09/12/24 History venlafaxine 150 mg 150 mg PO QDAY ##0 03/05/15 09/12/24 History capsule,extended release 24 hr (Effexor XR) divalproex 500 mg tablet,delayed 500 mg PO TID #0 tabs 08/06/15 09/12/24 History release (Depakote) amlodipine 5 mg tablet (Norvasc) 5 mg PO DAILY #0 tabs 04/13/17 09/12/24 History ergocalciferol (vitamin D2) 1,250 50,000 unit PO QWEEK 02/22/18 09/12/24 History mcg (50,000 unit) capsule (Vitamin D2) hydroxyzine HCl 25 mg tablet 50 mg PO TID 02/22/18 09/12/24 History cyclobenzaprine 10 mg tablet 10 mg PO HS 10/19/23 09/12/24 History hydrochlorothiazide 12.5 mg tablet 12.5 mg PO QAM 10/19/23 09/12/24 History ipratropium 0.5 mg-albuterol 3 mg 3 ml inhalation Q4H PRN Shortness 10/19/23 12/02/23 History (2.5 mg base)/3 mL nebulization Of Breath Or Wheezing soln ubrogepant 100 mg tablet (Ubrelvy) 100 mg PO PRN PRN Migraine Headache 10/19/23 09/12/24 History carvedilol 12.5 mg tablet 12.5 mg PO DAILY 11/15/23 09/12/24 History clopidogrel 75 mg tablet 75 mg PO DAILY 11/15/23 09/12/24 History metoprolol tartrate 100 mg tablet 100 mg PO BID 11/15/23 09/12/24 History pantoprazole 40 mg tablet,delayed 40 mg PO BID 11/15/23 09/12/24 History release pregabalin 50 mg capsule 50 mg PO BID Nerve pain 11/15/23 09/12/24 History loratadine 10 mg tablet 10 mg PO QDAY 12/02/23 09/12/24 History alendronate 70 mg tablet 70 mg PO QWEEK 09/12/24 09/12/24 History fluticasone fur. 200 mcg-umeclid 1 inh inhalation Q24H 09/12/24 09/12/24 History 62.5 mcg-vilant 25 mcg inhalat.powder (Trelegy Ellipta) folic acid 1 mg tablet 2 mg PO DAILY 09/12/24 09/12/24 History hydroxyzine HCl 50 mg tablet 50 mg PO Q8H 09/12/24 09/12/24 History infliximab 100 mg intravenous IV 09/12/24 History solution (Remicade) tiotropium bromide 2.5 2 puff inhalation Q24H 09/12/24 09/12/24 History mcg/actuation mist for inhalation (Spiriva Respimat) Allergies Allergy/AdvReac Type Severity Reaction Status Date / Time iodine Allergy Severe RASH,DIFFICULTY Verified 09/11/24 16:37 BREATHING morphine Allergy Severe FEELS ON Verified 09/11/24 16:37 FIRE,FACE SWELLS adhesive tape Allergy Unknown Rash Verified 09/11/24 16:37 etanercept Allergy Rash Verified 09/11/24 16:37 Exam Vital Signs Temp Pulse Resp BP Pulse Ox O2 Del Method O2 Flow Rate 97.2 F 73 18 122/81 95 Room Air 2 09/17/24 04:00 09/17/24 06:14 09/17/24 06:14 09/17/24 04:00 09/17/24 06:14 09/17/24 04:00 09/16/24 04:00 Narrative Exam Appearing comfortable lying in no acute distress Results Labs 09/17/24 04:41 09/17/24 04:41 Labs: Short CBC 09/17/24 Range/Units 04:41 WBC 14.3 H (3.6-11.0) Thou/mm3 Hgb 13.2 (12.0-16.0) g/dL Hct 37.8 (36.0-46.0) % Plt Count 406 (140-440) Thou/mm3 BMP 09/16/24 09/17/24 05:58 04:41 Sodium 134 L 135 L Potassium 4.1 4.0 Chloride 100 100 Carbon Dioxide 26.3 25.3 BUN 11 12 Creatinine 0.7 0.6 Glucose 114 H 94 Calcium 9.4 9.5 Liver Function 09/16/24 09/17/24 Range/Units 05:58 04:41 Total Bilirubin 0.6 0.6 (0.3-1.2) mg/dL AST 10 12 (0-34) U/L ALT 12 13 (10-49) U/L Alkaline Phosphatase 76 69 (46-116) U/L Albumin 3.8 3.5 (3.4-4.8) gm/dL Assessment and Plan Additional Assessment & Plan Additional Plan: 1. Admitted with pneumonia COPD respiratory failure improving with supportive care. 2. Left lower lobe mass suspected malignancy in longtime smoker. 3. Will order CT-guided biopsy and follow. Thank you for allowing me to evaluate this patient
[2024-09-17] MEDS: NAPH,KPH MBDB 1 PACKET (1.5 GM) PO ×2 (09:18→21:40)
[2024-09-17] MEDS: amLODIPine BESYLATE 5 MG TABLET 10 MG PO (09:19)
[2024-09-17] MEDS: NICOTINE PATCH 21 MG/24 HR PATCH.TD24 TOP (09:19)
[2024-09-17] MEDS: METOPROLOL TARTRATE 25 MG TABLET 50 MG PO ×2 (09:20→21:40)
[2024-09-17] MEDS: PANTOPRAZOLE 40 MG TABLET PO (09:20)
[2024-09-17] MEDS: LINEZOLID 600 MG IVPB 600 MG/300 ML BAG 300 MG IV (09:20)
--- NOTE | 2024-09-17 09:29 | PD.IDPROG ---
Subjective Subjective Interval history: hemoptysis noted. hx of latent tb. osteoporosis, htn and ra. on rx for all. Exam Vital Signs Temp Pulse Resp BP Pulse Ox O2 Del Method O2 Flow Rate 96.8 F 86 20 146/81 H 95 Room Air 2 09/17/24 08:00 09/17/24 09:20 09/17/24 08:00 09/17/24 09:20 09/17/24 08:00 09/17/24 08:00 09/16/24 04:00 Narrative Exam on room air. no distress. imaging more benign than report suggests, no objection to bx though Objective - Internal Medicine Labs 09/17/24 04:41 09/17/24 04:41 Labs: Laboratory Results - last 24 hr 09/17/24 04:41 WBC 14.3 H RBC 4.01 Hgb 13.2 Hct 37.8 MCV 94 MCH 32.9 MCHC 34.9 RDW Std Deviation 44.3 Plt Count 406 Neut % (Auto) 61 Lymph % (Auto) 28 [place] % (Auto) 9 Eos % (Auto) 1 Baso % (Auto) 0 Neut # (Auto) 8.8 H Lymph # (Auto) 3.9 [place] # (Auto) 1.2 H Eos # (Auto) 0.1 Baso # (Auto) 0.1 Immature Gran # (Auto) 0.29 H Absolute Nucleated RBC 0.00 Immature Gran % 2 H Nucleated RBC % 0 Sodium 135 L Potassium 4.0 Chloride 100 Carbon Dioxide 25.3 Anion Gap 10 BUN 12 Creatinine 0.6 Estim Creat Clear Calc 94.3 eGFR > 60 BUN/Creatinine Ratio 20 Glucose 94 Calculated Osmolality 269 L Calcium 9.5 Corrected Calcium 9.9 Phosphorus 3.2 Magnesium 2.0 Total Bilirubin 0.6 AST 12 ALT 13 Alkaline Phosphatase 69 Total Protein 7.2 Albumin 3.5 Globulin 3.7 H Albumin/Globulin Ratio 0.9 L Assessment & Plan A&P Narrative 1. Admitted with pneumonia COPD respiratory failure improving with supportive care. avoid smoke. mrsa pos sputum. primary desiring rx but here more for exac of copd. with a smoking hx noted hx of breast CA noted. imaging somewhat unimpressive on review no objection to bx of area once TB ruled out. hx of tb exposure with neg qtf. received about 3 mo of multiple drug rx yrs ago Time Spent With Patient Time: Total time spent is greater than 50% in coordination of care (as documented) at patient's floor/unit and/or counseling patient:
[2024-09-17 11:02] LABS: Hepatitis C Antibody Non Reactive (Non React)
[2024-09-17 11:24] LABS: Quantiferon-TB* See Sep Rpt
--- NOTE | 2024-09-17 13:10 | ESPR_ITS ---
<Statement entered by Marge Stahl MD - 09/17/24 15:22> I discussed with and supervised the graphics intern physician who took care of this patient. I personally saw and examined the patient and discussed the assessment and plan with the entire medicine team, including my attending Dr. Hutchinson, I agree with the assessment and plan as documented below Patient seen and examined at bedside today. Labs and imaging reviewed. No overnight acute events. This morning at bedside patient is AOx4, respond to question properly, denied any acute complaints. Per oncology recommendations pending left lung CT-guided biopsy. Pending repeat AFB sputum samples every 8 hours, pending QuantiFERON and pending mycobacterial cultures. Marge Stahl MD PGY-3 Disclaimer: Despite multiple revisions, due to the dictation software being used, the document bellow may not be free of grammatical errors including phonetic/typographic errors. However, this does not deter from our commitment to providing health care in the patient's best interest in mind. <Statement entered by Chyna Babin MD - 09/17/24 13:42> Patient seen and examined at bedside. No acute overnight events reported. Unfortunately, 3 AFB samples were not collected over the course of every 8 hours when the initial AFB was sent during admission. Even though, patient has low suspicion for active TB, will try for 3 AFB samples every 8 hours. Patient will continue to be on isolation precautions. Patient also grew MRSA in her sputum, and unable to tolerate vancomycin due to immediate redness and pruritus. Patient was started on IV linezolid, however, was changed to doxycycline per ID recommendations. Will also wait for QuantiFERON that was ordered today. Dr. Engel was also consulted for persistent dense consolidation seen on CT scan. Oncology recommended to continue with pneumonia treatment and follow-up with CT- guided biopsy. I discussed with and supervised the graphics intern physician who took care of this patient. I personally saw and examined the patient and discussed the assessment and plan with the entire medicine team, including my attending , I agree with most of the assessment and plan as documented below Chyna Babin M.D. PGY-2 Documentation for date of: 09/17/24 Subjective Subjective Interval history: No overnight events. Patient seen and examined at bedside, resting comfortably. Continues to endorse hemoptysis. Patient notes she has night sweats, has been ongoing issue since beginning menopause, not acute. Initial AFB testing only taken x 1, will reorder AFB sputum x [address] Engel consulted, recommended CT-guided biopsy of lung mass. Will defer pending AFB results. Exam Vital Signs Temp Pulse Resp BP Pulse Ox O2 Del Method O2 Flow Rate 96.8 F 86 20 146/81 H 95 Room Air 2 09/17/24 08:00 09/17/24 09:20 09/17/24 08:00 09/17/24 09:20 09/17/24 08:00 09/17/24 08:00 09/16/24 04:00 Narrative Exam PE: Gen: Well-developed and well-nourished. HEENT: NCAT, PERRLA, EOMI, MMM, anicteric conjunctivae. CVS: normal S1 and S2. RRR. No M/R/G. Resp: CTA B/L. No rhonchi, rales, crackles or wheezing. Abd: soft, non-tender, non-distended. MSK: Good ROM in BUE & BLE. No edema or rash. Neuro: CN II-XII grossly intact. Strength 5/5 in BUE & BLE. Alert and oriented x3. Psych: appropriate mood and affect. Objective Labs 09/17/24 04:41 09/17/24 04:41 Labs: Laboratory Results - last 24 hr 09/17/24 04:41 WBC 14.3 H RBC 4.01 Hgb 13.2 Hct 37.8 MCV 94 MCH 32.9 MCHC 34.9 RDW Std Deviation 44.3 Plt Count 406 Neut % (Auto) 61 Lymph % (Auto) 28 [place] % (Auto) 9 Eos % (Auto) 1 Baso % (Auto) 0 Neut # (Auto) 8.8 H Lymph # (Auto) 3.9 [place] # (Auto) 1.2 H Eos # (Auto) 0.1 Baso # (Auto) 0.1 Immature Gran # (Auto) 0.29 H Absolute Nucleated RBC 0.00 Immature Gran % 2 H Nucleated RBC % 0 Sodium 135 L Potassium 4.0 Chloride 100 Carbon Dioxide 25.3 Anion Gap 10 BUN 12 Creatinine 0.6 Estim Creat Clear Calc 94.3 eGFR > 60 BUN/Creatinine Ratio 20 Glucose 94 Calculated Osmolality 269 L Calcium 9.5 Corrected Calcium 9.9 Phosphorus 3.2 Magnesium 2.0 Total Bilirubin 0.6 AST 12 ALT 13 Alkaline Phosphatase 69 Total Protein 7.2 Albumin 3.5 Globulin 3.7 H Albumin/Globulin Ratio 0.9 L Hepatitis C Antibody Non Reactive Quality Measures Quality Measures VTE prophylaxis Advance care planning discussed with:: patient Assessment & Plan Assessment Current Active Medications: Generic Name Dose Route Start Last Admin Trade Name Freq PRN Reason Stop Dose Admin Acetaminophen 650 mg 09/11/24 22:50 Acetaminophen 325 Mg Tablet PO 10/11/24 22:49 Q6H PRN Fever >101.5 Acetaminophen 650 mg 09/11/24 22:50 09/13/24 20:56 Acetaminophen 325 Mg Tablet PO 10/11/24 22:49 650 mg Q6H PRN Administration PAIN SCALE 1-3 (mild Albuterol/Ipratropium 3 ml 09/11/24 22:50 Albuterol/Ipratropium (Duoneb) Rt Ruth 3 Ml Nebu INH 10/12/24 00:59 Q6HRRT PRN wheezing Amlodipine Besylate 10 mg 09/11/24 23:05 09/17/24 09:19 Amlodipine Besylate 5 Mg Tablet PO 10/11/24 23:04 10 mg QDAY MAGDY Administration Benzonatate 200 mg 09/12/24 22:00 09/17/24 05:32 Benzonatate 100 Mg Capsule PO 09/19/24 21:59 200 mg Q8HR MAGDY Administration Protocol Divalproex Sodium 500 mg 09/12/24 22:00 09/17/24 05:[address] 500 Mg Tablet.Dr PO 10/12/24 21:59 500 mg TID MAGDY Administration Doxycycline Hyclate 100 mg 09/17/24 21:00 Doxycycline 100 Mg Tablet PO 09/18/24 12:00 BID MAGDY Guaifenesin 100 mg 09/14/24 14:51 Guaifenesin Syrup 200 Mg/10 Ml Udc PO 10/14/24 14:50 QID PRN COUGH Protocol Labetalol HCl 10 mg 09/11/24 23:08 Labetalol Inj 5 Mg/Ml Vial 20 Ml IVP 10/11/24 23:07 Q2H PRN SBP >180mmHg Metoprolol Tartrate 50 mg 09/12/24 21:00 09/17/24 09:20 Metoprolol Tartrate 25 Mg Tablet PO 10/12/24 20:59 50 mg BID MAGDY Administration Nicotine 21 mg 09/15/24 14:30 09/17/24 09:19 Nicotine Patch 21 Mg/24 Hr Patch.Td24 TOP 10/15/24 14:29 21 mg QDAY MAGDY Administration Ondansetron HCl 4 mg 09/11/24 22:50 Ondansetron Inj 2 Mg/Ml Inj 2 Ml IV 10/11/24 22:49 Q6H PRN NAUSEA OR VOMITING Protocol Pantoprazole Sodium 40 mg 09/12/24 09:00 09/17/24 09:20 Pantoprazole 40 Mg Tablet PO 10/12/24 08:59 40 mg QDAY MAGDY Administration Potassium Phos/Sodium Phos 1 packet 09/13/24 09:00 09/17/24 09:18 [place],[facility] Mbdb 1 Packet (1.5 Gm) PO 10/13/24 08:59 1 packet BID MAGDY Administration Sennosides 1 tab 09/11/24 22:50 Senna Tablet PO 10/11/24 22:49 QDAY PRN constipation Protocol Plan 64-year-old female patient with reportedly past medical history of COPD not on oxygen at home, hypertension, rheumatoid arthritis on Remicade infusion, A-fib on Eliquis, hypertension, bipolar disorder with suicidal ideation, osteoporosis, presented to the ED due to productive cough with tinge of blood in the sputum for the past 2 weeks. Patient was admitted to rule out TB. #Community-acquired pneumonia #COPD exacerbation #TB rule out #MRSA pneumonia DDx: Pneumonia versus TB infection versus cocci versus neoplasm versus COPD exacerbation Patient met SIRS criteria with elevated heart rate, elevated WBCs, and pulmonary infiltrate, however sepsis was ruled out due to lack of endorgan damage including normal lactate. Patient presented with cough which is productive with tinge of blood, weight loss, history of exposure to TB however she was given anti-TB medications for 3 months Patient is on Remicade for rheumatoid arthritis which is a risk factor for TB reactivation, however patient likely had negative test of before beginning infusions. Patient also has long history of smoking, which he also increase the risk of pulmonary neoplasm. 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 If patient does not show improvement tomorrow, consider CT to reeval changes and pulmonary lesion. Cocci negative. Blood cultures 48 hours has been negative, first AFB smear has been negative pending 2 out of 3 AFB smears, pending mycobacterial culture. Sputum culture and Gram showed MRSA for which patient was started on IV vancomycin otherwise patient complaining of itchiness and antibiotic was switched for IV linezolid. Repeat CT chest showed dense consolidation versus pulmonary mass in the left lower lobe measuring 5.2 x 3.4 cm. Oncologist was consulted, greatly appreciate recommendations Initially only ordered 1 AFB sputum test, reordered. Oncology consulted, recommended CT-guided lung biopsy. Will defer pending AFB results. -DC ceftriaxone ( 09/11-) -Continue azithromycin 500 mg p.o. daily (started 09/10) -Started IV linezolid 600 mg twice daily (09/16) -DuoNebs every 6 hours as needed -Tylenol for fever -Oxygen to keep O2 saturation between 88 to 92% -Follow-up AFB testing #History of hypertension -amlodipine 10 mg p.o. daily -Metoprolol tartrate 50 mg p.o. twice daily #History of A-fib #History of CAD Patient history as stated. Takes Plavix as anticoag. Patient does not routinely see cook box filler. -Because the patient has hemoptysis and has suspicious pulmonary lesion we will hold on Plavix at this time #History of bipolar disorder with suicidal ideation On evaluation patient denied any ideas to hurt herself or others Patient informed that she is taking Depakote as a mood stabilizer -Resume home meds: Depakote 500 mg p.o. 3 times daily #History of osteoporosis Patient on alendronate tablets weekly -Consider resuming home medication alendronate when clinically appropriate #Acute hypoxic respiratory failure resolved #Sepsis ruled out FEN: Cardiac diet DVT ppx: SCDs GI ppx: Pantoprazole IV lines: PIV Code status: Full code Plan of care discussed with senior residents Dr. Babin PGY?[address] Stahl PGY?3, and attending Dr. Hutchinson. Bogdan Ochoa MD PGY?1 Disclaimer: Despite multiple revisions, due to the dictation software being used, the document bellow may not be free of grammatical errors including phonetic/typographic errors. However, this does not deter from our commitment to providing health care in the patient's best interest in mind. Attending Provider Attestation/Addendum I have examined the patient, reviewed labs and imaging findings, discussed the case with the resident(s), and reviewed entered orders. I agree with the plan of care as outlined in this note, with these additional summaries/recommendations: Patient seen at bedside. No acute overnight events. Patient has only completed 1 AFB which returned negative. 2 additional AFBs ordered to rule out active tuberculosis. Once active TB is ruled out patient will go for biopsy of lung mass. Infectious disease following and patient transition to oral doxycycline for MRSA pneumonia. Atrial fibrillation remains well controlled. Continue to hold home Plavix. Dr. Evangelina MD
[2024-09-17] MEDS: SODIUM CHLORIDE RT 10% 15 ML NEBU INH (21:05)
[2024-09-17] MEDS: DOXYCYCLINE 100 MG TABLET PO (21:40)
--- NOTE | 2024-09-17 22:12 | PC.NURSE ---
DR. MCDANIELS NOTIFIED OF PT'S REQUEST FOR ANTIDIARHEA MED . PT HAD 2 X LOOSE STOOLS TONIGHT. PT DENIES PAIN.
[2024-09-17 22:14] LABS: Cult AFB Sendout- Sputum* See Sep Rpt
[2024-09-18] VITALS (13 sets, daily range): BP systolic 131–161; BP diastolic 74–93; PULSE 64–91; RESP 17–22; TEMP 36.1–36.6; O2SAT 93–97; BMI 29.7
[2024-09-18] MEDS: DIVALPROEX SOD DR 500 MG TABLET.DR PO ×3 (05:13→22:45)
[2024-09-18] MEDS: BENZONATATE 100 MG CAPSULE 200 MG PO ×3 (05:13→22:45)
[2024-09-18 05:39] LABS: Cult AFB Sendout- Sputum* See Sep Rpt
[2024-09-18 05:49] LABS: Basophils # (Auto) 0.1 Thou/mm3 (0.0-0.2); Basophils % (Auto) 1 % (0-2.5); Eosinophils # (Auto) 0.1 Thou/mm3 (0.0-0.5); Eosinophils % (Auto) 1 % (0-10); Hematocrit 41.5 % (36.0-46.0); Immature Granulocytes % (Auto) 2 % (0-0); Immature Granulocytes Auto 0.28 Thou/mm3 (0.00-0.00); Lymphocytes # (Auto) 3.7 Thou/mm3 (1.0-4.8); Lymphocytes % (Auto) 27 % (10-50); Mean Corpuscular HGB Conc 33.7 g/dl (31.0-37.0); Mean Corpuscular Hemoglobin 32.3 pg (25.0-35.0); Mean Corpuscular Volume 96 fL (80-100); Monocytes # (Auto) 1.3 Thou/mm3 (0.0-0.8); Monocytes % (Auto) 9 % (0-12); Neutrophils # (Auto) 8.4 Thou/mm3 (1.8-7.7); Neutrophils % (Auto) 61 % (37-80); Nucleated Red Blood Cell % 0 /100 WBC (0); Platelet Count 426 Thou/mm3 (140-440); RDW Standard Deviation 45.2 fL (36.4-46.3); Red Blood Count 4.33 Miln/mm3 (4.00-5.20); White Blood Count 13.9 Thou/mm3 (3.6-11.0)
[2024-09-18 06:08] LABS: Alanine Aminotransferase 12 U/L (10-49); Albumin, Serum 3.8 gm/dL (3.4-4.8); Albumin/Globulin Ratio 0.9 (1.2-2.2); Alkaline Phosphatase 73 U/L (46-116); Anion Gap 8 (7-16); Aspartate Amino Transferase 12 U/L (0-34); BUN/Creatinine Ratio 15 Ratio (12-20); Bilirubin,Total 0.6 mg/dL (0.3-1.2); Blood Urea Nitrogen 12 mg/dL (9-23); Calcium (Corrected) 10.2 mg/dL (8.5-10.1); Carbon Dioxide 28.3 mMol/L (20.0-31.0); Chloride 99 mMol/L (98-107); Creatinine (Component) 0.8 mg/dL (0.6-1.3); Estimated Creatinine Clearance 70.7 mL/min (>60); Globulin 4.1 gm/dL (2.3-3.5); Glucose 94 mg/dL (74-106); Magnesium 2.1 mg/dL (1.6-2.6); Osmolality,Calculated 269 (275-295); Phosphorous 3.3 mg/dL (2.4-5.1); Potassium 4.2 mMol/L (3.4-5.1); Sodium 135 mMol/L (136-145); Total Protein 7.9 gm/dL (5.7-8.2); eGFR > 60 See Note
--- NOTE | 2024-09-18 07:17 | ESCONSULT_ITS ---
RE: SUNDAR BARRON : 1960 DATE OF CONSULTATION: 09/17/2024 REFERRING PHYSICIAN: Dr. Romero and Dr. Hutchinson. REASON FOR CONSULTATION: Hemoptysis with history of breast cancer. HISTORY OF PRESENT ILLNESS: The patient has a history of breast cancer a number of years ago and was followed at the cancer center for a while. Her liver mass was determined to not be malignant per the patient and it has not been biopsied. Oncology has seen her. There is imaging report that is much more impressive than actual imaging. There is not much on the image in my view. She has MRSA in her sputum and history of COPD and is a former smoker as well as having some secondary smoking exposure from her and her [id number]. She lives at home with her and her [id number]. All are smokers. She plans to quit and not resume smoking and hopes to get them to quit too. She does have a family history of TB in her uncle. He was diagnosed a number of years ago. She was apparently found to be have abnormal imaging at that time and so received some treatment, but states she was always negative on QuantiFERON. She has a history of rheumatoid arthritis followed by Dr. Henson of [place], was negative for TB and cocci and negative cocci this admission. I do not have a TB test back, but it is probably negative presumably. She is a pleasant lady. She has a history of hypertension, osteopenia, and breast cancer for which she is followed by the Cancer Center, Dr. Engel has seen her. PAST SURGICAL HISTORY: Includes prior cholecystectomy, hiatal hernia repair, arthroscopy of the right knee, and possible bilateral hand surgery for thumb issues followed by Dr. Henson. ALLERGIES: MORPHINE, WHICH I WILL NOT GIVE HER. THERE IS A LISTED ALLERGY AND AN IODINE ALLERGY ALSO NOTED. THERE ARE NO ANTIBIOTIC ALLERGIES APPRECIATED. IMMUNIZATIONS: Last tetanus was about 5 years ago. She does not take a flu shot every year. She has had two COVID vaccines and has had pneumococcal vaccine as well. FAMILY HISTORY: Positive for her uncle with TB years ago. She received about 3 months of two-drug therapy a number of years ago, stopped because her QuantiFERON was negative. SOCIAL HISTORY: She lives at home with her and her brother. Unsure when she was a regular smoker, half a pack to one pack a day for years. She states she has quit now and plans to get her others to stop smoking as well. She is aware that SMOKING IS good for business if she smokes or if others do so. PHYSICAL EXAMINATION: On exam, the patient has no oxygen requirements. She is in no respiratory distress. She has a history of atrial fibrillation for which she states she was unaware. She is a little bit upset with the clinic that was seeing her. She would like to change her primary. I have no objection. She must go through insurance for that purpose. Her exam is otherwise benign. There are no striking findings. There is no hemoptysis today and there is no blood in the sputum noted. ASSESSMENT: 1. Hemoptysis. The patient is on blood thinners without striking imaging findings, but a possible lung mass noted. 2. Hypertension. 3. Osteoporosis. 4. History of breast cancer treated at the Cancer Center. RECOMMENDATIONS: She should have some sort of biopsy if possible once the TB has been ruled out , but it does not sound like this is mycobacterial as she does not seem to be doing any worse without treatment. There is a desire to treat the MRSA from her sputum, but she dose not have pneumonia on my review of imaging. I am going to switch that to doxycycline, which I think is fine for another day. I will see her again on Tuesday. DT: 09:54:49 TT: 11:47:00 Ref: [id number] - TID: [id number] MTDD
[2024-09-18] MEDS: METOPROLOL TARTRATE 25 MG TABLET 50 MG PO ×2 (08:22→20:39)
[2024-09-18] MEDS: DOXYCYCLINE 100 MG TABLET PO (08:22)
[2024-09-18] MEDS: NAPH,KPH MBDB 1 PACKET (1.5 GM) PO ×2 (08:23→20:39)
[2024-09-18] MEDS: PANTOPRAZOLE 40 MG TABLET PO (08:23)
[2024-09-18] MEDS: NICOTINE PATCH 21 MG/24 HR PATCH.TD24 TOP (08:23)
[2024-09-18] MEDS: amLODIPine BESYLATE 5 MG TABLET 10 MG PO (08:23)
--- NOTE | 2024-09-18 08:25 | PC.NURSE ---
consulted hopsitalist Dr. Tobias regarding lung bipsy, procedure cancelled at this time
--- NOTE | 2024-09-18 13:25 | ESPR_ITS ---
<Statement entered by Marge Stahl MD - 09/18/24 15:56> I discussed with and supervised the programming intern physician who took care of this patient. I personally saw and examined the patient and discussed the assessment and plan with the entire medicine team, including my attending Dr. Hutchinson, I agree with the assessment and plan as documented below Patient seen and examined at bedside today. Labs and imaging reviewed. No overnight acute events This morning the bedside, patient is alert that she is having multiple episodes of diarrhea, denied any other acute complaints at this moment, AFBs every 8 hours x 3 were collected at 6 PM 09/17, 2 AM 09/18, 10 AM 09/18 and sent to the lab. Pending QuantiFERON, pending lung CT-guided biopsy after TB has been ruled out. Per infectious disease recommendations patient was started on doxycycline 100 twice daily for 1 more day. Marge Stahl MD PGY-3 Disclaimer: Despite multiple revisions, due to the dictation software being used, the document bellow may not be free of grammatical errors including phonetic/typographic errors. However, this does not deter from our commitment to providing health care in the patient's best interest in mind. <Statement entered by Chyna Babin MD - 09/18/24 15:28> Patient seen and examined at bedside. No acute overnight events reported. Patient's symptoms are improving. All 3 AFB samples were collected, and confirmed by RT. Will reach out to lab later to confirm samples were also sent. Patient however did endorse frequent bouts of diarrhea, which is new for her. Will continue to monitor for now. CT biopsy of left lung will be held for now due to current process of ruling out active TB. I discussed with and supervised the programming intern physician who took care of this patient. I personally saw and examined the patient and discussed the assessment and plan with the entire medicine team, including my attending Dr. Hutchinson, I agree with most of the assessment and plan as documented below Chyna Babin M.D. PGY-2 Documentation for date of: 09/18/24 Subjective Subjective Interval history: No overnight events. Patient seen examined at bedside, resting comfortably. Updated patient on status of AFB testing, patient was understanding. Patient dorsal subjective improvement, decreased cough frequency, decreased amounts of hemoptysis. Patient endorses diarrhea with frequent small amounts of stool, suspect some level of incontinence. Otherwise patient continues to feel well. Follow-up AFB testing. 1 day doxycycline for MRSA in sputum. Exam Vital Signs Temp Pulse Resp BP Pulse Ox O2 Del Method O2 Flow Rate 97.8 F 70 22 H 131/74 H 96 Room Air 2 09/18/24 11:39 09/18/24 11:39 09/18/24 11:39 09/18/24 11:39 09/18/24 11:39 09/18/24 11:39 09/16/24 04:00 Narrative Exam PE: Gen: Well-developed and well-nourished. HEENT: NCAT, PERRLA, EOMI, MMM, anicteric conjunctivae. CVS: normal S1 and S2. RRR. No M/R/G. Resp: CTA B/L. No rhonchi, rales, crackles or wheezing. Abd: soft, non-tender, non-distended. MSK: Good ROM in BUE & BLE. No edema or rash. Neuro: CN II-XII grossly intact. Strength 5/5 in BUE & BLE. Alert and oriented x3. Psych: appropriate mood and affect. Objective Labs 09/19/24 05:24 09/19/24 05:24 Labs: Laboratory Results - last 24 hr 09/18/24 04:35 WBC 13.9 H RBC 4.33 Hgb 14.0 Hct 41.5 MCV 96 MCH 32.3 MCHC 33.7 RDW Std Deviation 45.2 Plt Count 426 Neut % (Auto) 61 Lymph % (Auto) 27 [place] % (Auto) 9 Eos % (Auto) 1 Baso % (Auto) 1 Neut # (Auto) 8.4 H Lymph # (Auto) 3.7 [place] # (Auto) 1.3 H Eos # (Auto) 0.1 Baso # (Auto) 0.1 Immature Gran # (Auto) 0.28 H Absolute Nucleated RBC 0.00 Immature Gran % 2 H Nucleated RBC % 0 Sodium 135 L Potassium 4.2 Chloride 99 Carbon Dioxide 28.3 Anion Gap 8 BUN 12 Creatinine 0.8 Estim Creat Clear Calc 70.7 eGFR > 60 BUN/Creatinine Ratio 15 Glucose 94 Calculated Osmolality 269 L Calcium 10.0 Corrected Calcium 10.2 H Phosphorus 3.3 Magnesium 2.1 Total Bilirubin 0.6 AST 12 ALT 12 Alkaline Phosphatase 73 Total Protein 7.9 Albumin 3.8 Globulin 4.1 H Albumin/Globulin Ratio 0.9 L Quality Measures Quality Measures VTE prophylaxis Advance care planning discussed with:: patient Assessment & Plan Assessment Current Active Medications: Generic Name Dose Route Start Last Admin Trade Name Freq PRN Reason Stop Dose Admin Acetaminophen 650 mg 09/11/24 22:50 Acetaminophen 325 Mg Tablet PO 10/11/24 22:49 Q6H PRN Fever >101.5 Acetaminophen 650 mg 09/11/24 22:50 09/13/24 20:56 Acetaminophen 325 Mg Tablet PO 10/11/24 22:49 650 mg Q6H PRN Administration PAIN SCALE 1-3 (mild Albuterol/Ipratropium 3 ml 09/11/24 22:50 Albuterol/Ipratropium (Duoneb) Rt Ruth 3 Ml Nebu INH 10/12/24 00:59 Q6HRRT PRN wheezing Amlodipine Besylate 10 mg 09/11/24 23:05 09/18/24 08:23 Amlodipine Besylate 5 Mg Tablet PO 10/11/24 23:04 10 mg QDAY MAGDY Administration Benzonatate 200 mg 09/12/24 22:00 09/18/24 05:13 Benzonatate 100 Mg Capsule PO 09/19/24 21:59 200 mg Q8HR MAGDY Administration Protocol Divalproex Sodium 500 mg 09/12/24 22:00 09/18/24 05:[address] 500 Mg Tablet.Dr PO 10/12/24 21:59 500 mg TID MAGDY Administration Guaifenesin 100 mg 09/14/24 14:51 Guaifenesin Syrup 200 Mg/10 Ml Udc PO 10/14/24 14:50 QID PRN COUGH Protocol Labetalol HCl 10 mg 09/11/24 23:08 Labetalol Inj 5 Mg/Ml Vial 20 Ml IVP 10/11/24 23:07 Q2H PRN SBP >180mmHg Metoprolol Tartrate 50 mg 09/12/24 21:00 09/18/24 08:22 Metoprolol Tartrate 25 Mg Tablet PO 10/12/24 20:59 50 mg BID MAGDY Administration Nicotine 21 mg 09/15/24 14:30 09/18/24 08:23 Nicotine Patch 21 Mg/24 Hr Patch.Td24 TOP 10/15/24 14:29 21 mg QDAY MAGDY Administration Ondansetron HCl 4 mg 09/11/24 22:50 Ondansetron Inj 2 Mg/Ml Inj 2 Ml IV 10/11/24 22:49 Q6H PRN NAUSEA OR VOMITING Protocol Pantoprazole Sodium 40 mg 09/12/24 09:00 09/18/24 08:23 Pantoprazole 40 Mg Tablet PO 10/12/24 08:59 40 mg QDAY MAGDY Administration Potassium Phos/Sodium Phos 1 packet 09/13/24 09:00 09/18/24 08:23 [place],[facility] Mbdb 1 Packet (1.5 Gm) PO 10/13/24 08:59 1 packet BID MAGDY Administration Plan 64-year-old female patient with reportedly past medical history of COPD not on oxygen at home, hypertension, rheumatoid arthritis on Remicade infusion, A-fib on Eliquis, hypertension, bipolar disorder with suicidal ideation, osteoporosis, presented to the ED due to productive cough with tinge of blood in the sputum for the past 2 weeks. Patient was admitted to rule out TB. #Community-acquired pneumonia #COPD exacerbation #TB rule out #MRSA pneumonia DDx: Pneumonia versus TB infection versus cocci versus neoplasm versus COPD exacerbation Patient met SIRS criteria with elevated heart rate, elevated WBCs, and pulmonary infiltrate, however sepsis was ruled out due to lack of endorgan damage including normal lactate. Patient presented with cough which is productive with tinge of blood, weight loss, history of exposure to TB however she was given anti-TB medications for 3 months Patient is on Remicade for rheumatoid arthritis which is a risk factor for TB reactivation, however patient likely had negative test of before beginning infusions. Patient also has long history of smoking, which he also increase the risk of pulmonary neoplasm. CT showed dense pneumonic consolidation versus pulmonary mass in the left lower lobe, 5.6 x 3.5 cm Spoke to patient's printing supervisor, patient had negative QuantiFERON and cocci testing prior to starting infliximab. If patient does not show improvement tomorrow, consider CT to reeval changes and pulmonary lesion. Cocci negative. Blood cultures 48 hours has been negative, first AFB smear has been negative pending 2 out of 3 AFB smears, pending mycobacterial culture. Sputum culture and Gram showed MRSA for which patient was started on IV vancomycin otherwise patient complaining of itchiness and antibiotic was switched for IV linezolid. Repeat CT chest showed dense consolidation versus pulmonary mass in the left lower lobe measuring 5.2 x 3.4 cm. Oncologist was consulted, greatly appreciate recommendations Initially only ordered 1 AFB sputum test, reordered. Oncology consulted, recommended CT-guided lung biopsy. Will defer pending AFB results. -DC ceftriaxone (09/11-) -Continue azithromycin 500 mg p.o. daily (started 09/10-09/16) -Started IV linezolid 600 mg twice daily (09/16) -Doxycycline 100mg PO BID x1 day -DuoNebs every 6 hours as needed -Tylenol for fever -Oxygen to keep O2 saturation between 88 to 92% -Follow-up AFB testing #Diarrhea, possible stool incontinence Patient complains of frequent bowel movements. Only 3 large soft bowel movements recorded by nurse. Patient reports frequently needing to change incontinence pads due to small amounts of stool, possibly having small amounts of stool incontinence. Patient nondistressed, no electrolyte abnormalities. -Continue to monitor for now #History of hypertension -amlodipine 10 mg p.o. daily -Metoprolol tartrate 50 mg p.o. twice daily #History of A-fib #History of CAD Patient history as stated. Takes Plavix as anticoag. Patient does not routinely see truck operator. -Because the patient has hemoptysis and has suspicious pulmonary lesion we will hold on Plavix at this time #History of bipolar disorder with suicidal ideation On evaluation patient denied any ideas to hurt herself or others Patient informed that she is taking Depakote as a mood stabilizer -Resume home meds: Depakote 500 mg p.o. 3 times daily #History of osteoporosis Patient on alendronate tablets weekly -Consider resuming home medication alendronate when clinically appropriate #Acute hypoxic respiratory failure resolved #Sepsis ruled out FEN: Cardiac diet DVT ppx: SCDs GI ppx: Pantoprazole IV lines: PIV Code status: Full code Plan of care discussed with senior residents Dr. Babin PGY?[address] Stahl PGY?3, and attending Dr. Hutchinson. Bogdan Ochoa MD PGY?1 Disclaimer: Despite multiple revisions, due to the dictation software being used, the document bellow may not be free of grammatical errors including phonetic/typographic errors. However, this does not deter from our commitment to providing health care in the patient's best interest in mind. Attending Provider Attestation/Addendum I have examined the patient, reviewed labs and imaging findings, discussed the case with the resident(s), and reviewed entered orders. I agree with the plan of care as outlined in this note, with these additional summaries/recommendations: Patient seen at bedside. Patient reports she had multiple episodes over diarrhea overnight and diarrhea thus far this morning. We will continue to monitor for now. Patient denies abdominal pain or seeing blood in her stool. Patient has only completed 1 AFB which returned negative. 2 additional AFBs ordered to rule out active tuberculosis. Once active TB is ruled out patient will go for biopsy of lung mass. Infectious disease following and patient transition to oral doxycycline for MRSA pneumonia. Atrial fibrillation remains well controlled. Continue to hold home Plavix for hx of CVA. Dr. Evangelina MD
--- NOTE | 2024-09-18 15:44 | PC.RT ---
the patient has had all 3 AFB's collected 09/17/2024 1st @10:23am, 2nd 18:23pm, 3rd 09/18/2024 02:23am and turned in to lab
--- NOTE | 2024-09-18 22:17 | PC.RT ---
On 09-18-24 AFB #3 TAKEN TO [facility] AT 0520. [place] RECEIVED SAMPLE AND AND WAS AWARE IT WAS LAST IN SERIES.
[2024-09-19] VITALS (11 sets, daily range): BP systolic 128–142; BP diastolic 74–89; PULSE 61–98; RESP 18–28; TEMP 36.2–36.7; O2SAT 94–98; BMI 30.4
[2024-09-19] MEDS: DIVALPROEX SOD DR 500 MG TABLET.DR PO ×3 (05:58→21:44)
[2024-09-19] MEDS: BENZONATATE 100 MG CAPSULE 200 MG PO ×2 (05:58→15:19)
[2024-09-19 06:08] LABS: Basophils # (Auto) 0.1 Thou/mm3 (0.0-0.2); Basophils % (Auto) 1 % (0-2.5); Eosinophils # (Auto) 0.1 Thou/mm3 (0.0-0.5); Eosinophils % (Auto) 1 % (0-10); Hematocrit 36.9 % (36.0-46.0); Hemoglobin 12.8 g/dL (12.0-16.0); Immature Granulocytes % (Auto) 2 % (0-0); Immature Granulocytes Auto 0.18 Thou/mm3 (0.00-0.00); Lymphocytes # (Auto) 3.5 Thou/mm3 (1.0-4.8); Lymphocytes % (Auto) 32 % (10-50); Mean Corpuscular HGB Conc 34.7 g/dl (31.0-37.0); Mean Corpuscular Hemoglobin 32.6 pg (25.0-35.0); Mean Corpuscular Volume 94 fL (80-100); Monocytes # (Auto) 1.1 Thou/mm3 (0.0-0.8); Monocytes % (Auto) 10 % (0-12); Neutrophils # (Auto) 6.1 Thou/mm3 (1.8-7.7); Neutrophils % (Auto) 56 % (37-80); Nucleated Red Blood Cell % 0 /100 WBC (0); Platelet Count 319 Thou/mm3 (140-440); RDW Standard Deviation 43.7 fL (36.4-46.3); Red Blood Count 3.93 Miln/mm3 (4.00-5.20); White Blood Count 10.9 Thou/mm3 (3.6-11.0)
[2024-09-19 06:42] LABS: Alanine Aminotransferase 10 U/L (10-49); Albumin, Serum 3.3 gm/dL (3.4-4.8); Albumin/Globulin Ratio 0.9 (1.2-2.2); Alkaline Phosphatase 66 U/L (46-116); Anion Gap 5 (7-16); Aspartate Amino Transferase 10 U/L (0-34); BUN/Creatinine Ratio 23 Ratio (12-20); Bilirubin,Total 0.5 mg/dL (0.3-1.2); Blood Urea Nitrogen 16 mg/dL (9-23); Calcium 9.3 mg/dL (8.3-10.6); Calcium (Corrected) 9.9 mg/dL (8.5-10.1); Carbon Dioxide 25.3 mMol/L (20.0-31.0); Chloride 103 mMol/L (98-107); Creatinine (Component) 0.7 mg/dL (0.6-1.3); Estimated Creatinine Clearance 81.4 mL/min (>60); Globulin 3.8 gm/dL (2.3-3.5); Glucose 99 mg/dL (74-106); Osmolality,Calculated 267 (275-295); Phosphorous 3.2 mg/dL (2.4-5.1); Sodium 133 mMol/L (136-145); Total Protein 7.1 gm/dL (5.7-8.2); eGFR > 60 See Note
--- NOTE | 2024-09-19 06:55 | PC.NURSE ---
Pt. refuses bed alarm and educated on fall precautions fall risk, and reasons for precautions, pt. agrees to call for help. Call light and belongings within reach.
[2024-09-19] MEDS: PANTOPRAZOLE 40 MG TABLET PO (08:32)
[2024-09-19] MEDS: METOPROLOL TARTRATE 25 MG TABLET 50 MG PO ×2 (08:33→21:44)
[2024-09-19] MEDS: NAPH,KPH MBDB 1 PACKET (1.5 GM) PO (08:33)
[2024-09-19] MEDS: amLODIPine BESYLATE 5 MG TABLET 10 MG PO (08:33)
[2024-09-19] MEDS: NICOTINE PATCH 21 MG/24 HR PATCH.TD24 TOP (08:33)
--- NOTE | 2024-09-19 10:19 | PD.IDPROG ---
Subjective Subjective Interval history: only 1 sputum on file for afb. it is neg but am not sure if others collected. lower lobe disease is rarely mycobacterial. called health dept lab. 2 more sent today. pending. Exam Vital Signs Temp Pulse Resp BP Pulse Ox O2 Del Method O2 Flow Rate 97.1 F 72 18 141/82 H 95 Room Air 2 09/19/24 08:00 09/19/24 09:07 09/19/24 09:07 09/19/24 08:33 09/19/24 09:07 09/19/24 08:00 09/19/24 08:00 Narrative Exam limited eval Objective - Internal Medicine Labs 09/19/24 05:24 09/19/24 05:24 Labs: Laboratory Results - last 24 hr 09/19/24 05:24 WBC 10.9 RBC 3.93 L Hgb 12.8 Hct 36.9 MCV 94 MCH 32.6 MCHC 34.7 RDW Std Deviation 43.7 Plt Count 319 D Neut % (Auto) 56 Lymph % (Auto) 32 [place] % (Auto) 10 Eos % (Auto) 1 Baso % (Auto) 1 Neut # (Auto) 6.1 Lymph # (Auto) 3.5 [place] # (Auto) 1.1 H Eos # (Auto) 0.1 Baso # (Auto) 0.1 Immature Gran # (Auto) 0.18 H Absolute Nucleated RBC 0.00 Immature Gran % 2 H Nucleated RBC % 0 Sodium 133 L Potassium 4.0 Chloride 103 Carbon Dioxide 25.3 Anion Gap 5 L BUN 16 Creatinine 0.7 Estim Creat Clear Calc 81.4 eGFR > 60 BUN/Creatinine Ratio 23 H Glucose 99 Calculated Osmolality 267 L Calcium 9.3 Corrected Calcium 9.9 Phosphorus 3.2 Magnesium 2.0 Total Bilirubin 0.5 AST 10 ALT 10 Alkaline Phosphatase 66 Total Protein 7.1 Albumin 3.3 L D Globulin 3.8 H Albumin/Globulin Ratio 0.9 L Assessment & Plan A&P Narrative 1. Admitted with pneumonia COPD respiratory failure improved with supportive care. avoid smoke. mrsa pos sputum. primary desiring rx but here more for exac of copd. with a smoking hx noted hx of breast CA noted. imaging somewhat unimpressive on review no objection to bx of area once TB ruled out. hx of tb exposure with neg qtf. received about 3 mo of multiple drug rx yrs ago ok for lung bx if afb's neg, and lower lobe disease is rarely mycobacterial have to wait for today's afb's at health dept lab. they just arrived, if clinically improved, you can repeat imaging in 4-6 weeks as it often lags behind clinical progress. if some sx persist, then bx becomes more important in w/u. we can see again on Tuesday Time Spent With Patient Time: Total time spent is greater than 50% in coordination of care (as documented) at patient's floor/unit and/or counseling patient:
[2024-09-19 11:12] LABS: Cult AFB Sendout- Sputum* See Sep Rpt
--- NOTE | 2024-09-19 13:36 | ESPR_ITS ---
<Statement entered by Marge Stahl MD - 09/19/24 14:34> I discussed with and supervised the marketing intern physician who took care of this patient. I personally saw and examined the patient and discussed the assessment and plan with the entire medicine team, including my attending Dr. Hutchinson, I agree with the assessment and plan as documented below Patient seen and examined at bedside today. Labs and imaging reviewed. No overnight acute events This morning at the bedside patient was AOx4, respond to question properly she was anxious and frustrated because around 5:00 in the morning they came back to try to take a sputum sample. We explained to the patient that the 3 AFBs to rule out TB were collected and already sent to the lab for analysis. Pending QuantiFERON , patient completed yesterday p.o. doxycycline 100 mg p.o. twice daily for MRSA pneumonia. Pending CT-guided lung biopsy after TB has been ruled out. Marge Stahl MD PGY-3 Disclaimer: Despite multiple revisions, due to the dictation software being used, the document bellow may not be free of grammatical errors including phonetic/typographic errors. However, this does not deter from our commitment to providing health care in the patient's best interest in mind. <Statement entered by Chyna Babin MD - 09/19/24 14:19> 64-year-old female patient with reportedly past medical history of COPD not on oxygen at home, hypertension, rheumatoid arthritis on Remicade infusion, A-fib on Eliquis, hypertension, bipolar disorder with suicidal ideation, osteoporosis, presented to the ED due to productive cough with tinge of blood in the sputum for the past 2 weeks admitted for CAP, COPD exacerbation, and to rule out active TB. Patient has finished her Abx course, and 3 AFB samples have been confirmed and sent to [facility], and pending results. Dr. Engel consulted for possible lung mass seen on CT d/t no significant change noted on repeat imaging despite symptoms improving. Patient will receive biopsy of lung mass prior to DC. Patient seen and examined at bedside. Patient states her diarrhea bouts have improved and her hemoptysis is very minimal. Patient denies any pain or other complaints at this time. All questions asked and answered, and agrees with current course of plan. I discussed with and supervised the marketing intern physician who took care of this patient. I personally saw and examined the patient and discussed the assessment and plan with the entire medicine team, including my attending , I agree with most of the assessment and plan as documented below Chyna Babin M.D. PGY-2 Documentation for date of: 09/19/24 Subjective Subjective Interval history: No overnight events. Patient seen and examined at bedside, resting comfortably. Patient expressed some frustration with having to wait, but is understanding. Otherwise doing well, continues to have hemoptysis but improving. Follow-up on 3 AFBs. Patient has completed antibiotics. Exam Vital Signs Temp Pulse Resp BP Pulse Ox O2 Del Method O2 Flow Rate 97.9 F 70 19 132/75 H 97 Room Air 2 09/19/24 12:00 09/19/24 12:00 09/19/24 12:00 09/19/24 12:00 09/19/24 12:00 09/19/24 12:00 09/19/24 08:00 Narrative Exam PE: Gen: Well-developed and well-nourished. HEENT: NCAT, PERRLA, EOMI, MMM, anicteric conjunctivae. CVS: normal S1 and S2. RRR. No M/R/G. Resp: CTA B/L. No rhonchi, rales, crackles or wheezing. Abd: soft, non-tender, non-distended. MSK: Good ROM in BUE & BLE. No edema or rash. Neuro: CN II-XII grossly intact. Strength 5/5 in BUE & BLE. Alert and oriented x3. Psych: appropriate mood and affect. Objective Labs 09/19/24 05:24 09/19/24 05:24 Labs: Laboratory Results - last 24 hr 09/19/24 05:24 WBC 10.9 RBC 3.93 L Hgb 12.8 Hct 36.9 MCV 94 MCH 32.6 MCHC 34.7 RDW Std Deviation 43.7 Plt Count 319 D Neut % (Auto) 56 Lymph % (Auto) 32 [place] % (Auto) 10 Eos % (Auto) 1 Baso % (Auto) 1 Neut # (Auto) 6.1 Lymph # (Auto) 3.5 [place] # (Auto) 1.1 H Eos # (Auto) 0.1 Baso # (Auto) 0.1 Immature Gran # (Auto) 0.18 H Absolute Nucleated RBC 0.00 Immature Gran % 2 H Nucleated RBC % 0 Sodium 133 L Potassium 4.0 Chloride 103 Carbon Dioxide 25.3 Anion Gap 5 L BUN 16 Creatinine 0.7 Estim Creat Clear Calc 81.4 eGFR > 60 BUN/Creatinine Ratio 23 H Glucose 99 Calculated Osmolality 267 L Calcium 9.3 Corrected Calcium 9.9 Phosphorus 3.2 Magnesium 2.0 Total Bilirubin 0.5 AST 10 ALT 10 Alkaline Phosphatase 66 Total Protein 7.1 Albumin 3.3 L D Globulin 3.8 H Albumin/Globulin Ratio 0.9 L Quality Measures Quality Measures VTE prophylaxis Advance care planning discussed with:: patient Assessment & Plan Assessment Current Active Medications: Generic Name Dose Route Start Last Admin Trade Name Freq PRN Reason Stop Dose Admin Acetaminophen 650 mg 09/11/24 22:50 Acetaminophen 325 Mg Tablet PO 10/11/24 22:49 Q6H PRN Fever >101.5 Acetaminophen 650 mg 09/11/24 22:50 09/13/24 20:56 Acetaminophen 325 Mg Tablet PO 10/11/24 22:49 650 mg Q6H PRN Administration PAIN SCALE 1-3 (mild Albuterol/Ipratropium 3 ml 09/11/24 22:50 Albuterol/Ipratropium (Duoneb) Rt Ruth 3 Ml Nebu INH 10/12/24 00:59 Q6HRRT PRN wheezing Amlodipine Besylate 10 mg 09/11/24 23:05 09/19/24 08:33 Amlodipine Besylate 5 Mg Tablet PO 10/11/24 23:04 10 mg QDAY MAGDY Administration Benzonatate 200 mg 09/12/24 22:00 09/19/24 05:58 Benzonatate 100 Mg Capsule PO 09/19/24 21:59 200 mg Q8HR MAGDY Administration Protocol Divalproex Sodium 500 mg 09/12/24 22:00 09/19/24 05:[address] 500 Mg Tablet.Dr PO 10/12/24 21:59 500 mg TID MAGDY Administration Guaifenesin 100 mg 09/14/24 14:51 Guaifenesin Syrup 200 Mg/10 Ml Udc PO 10/14/24 14:50 QID PRN COUGH Protocol Labetalol HCl 10 mg 09/11/24 23:08 Labetalol Inj 5 Mg/Ml Vial 20 Ml IVP 10/11/24 23:07 Q2H PRN SBP >180mmHg Metoprolol Tartrate 50 mg 09/12/24 21:00 09/19/24 08:33 Metoprolol Tartrate 25 Mg Tablet PO 10/12/24 20:59 50 mg BID MAGDY Administration Nicotine 21 mg 09/15/24 14:30 09/19/24 08:33 Nicotine Patch 21 Mg/24 Hr Patch.Td24 TOP 10/15/24 14:29 21 mg QDAY MAGDY Administration Ondansetron HCl 4 mg 09/11/24 22:50 Ondansetron Inj 2 Mg/Ml Inj 2 Ml IV 10/11/24 22:49 Q6H PRN NAUSEA OR VOMITING Protocol Pantoprazole Sodium 40 mg 09/12/24 09:00 09/19/24 08:32 Pantoprazole 40 Mg Tablet PO 10/12/24 08:59 40 mg QDAY MAGDY Administration Plan 64-year-old female patient with reportedly past medical history of COPD not on oxygen at home, hypertension, rheumatoid arthritis on Remicade infusion, A-fib on Eliquis, hypertension, bipolar disorder with suicidal ideation, osteoporosis, presented to the ED due to productive cough with tinge of blood in the sputum for the past 2 weeks. Patient was admitted to rule out TB. #Community-acquired pneumonia #COPD exacerbation #TB rule out #MRSA pneumonia (treated) DDx: Pneumonia versus TB infection versus cocci versus neoplasm versus COPD exacerbation Patient met SIRS criteria with elevated heart rate, elevated WBCs, and pulmonary infiltrate, however sepsis was ruled out due to lack of endorgan damage including normal lactate. Patient presented with cough which is productive with tinge of blood, weight loss, history of exposure to TB however she was given anti-TB medications for 3 months Patient is on Remicade for rheumatoid arthritis which is a risk factor for TB reactivation, however patient likely had negative test of before beginning infusions. Patient also has long history of smoking, which he also increase the risk of pulmonary neoplasm. CT showed dense pneumonic consolidation versus pulmonary mass in the left lower lobe, 5.6 x 3.5 cm Spoke to patient's drop wire aligner, patient had negative QuantiFERON and cocci testing prior to starting infliximab. If patient does not show improvement tomorrow, consider CT to reeval changes and pulmonary lesion. Cocci negative. Blood cultures 48 hours has been negative, first AFB smear has been negative pending 2 out of 3 AFB smears, pending mycobacterial culture. Sputum culture and Gram showed MRSA for which patient was started on IV vancomycin otherwise patient complaining of itchiness and antibiotic was switched for IV linezolid. Repeat CT chest showed dense consolidation versus pulmonary mass in the left lower lobe measuring 5.2 x 3.4 cm. Oncologist was consulted, greatly appreciate recommendations Initially only ordered 1 AFB sputum test, reordered. Oncology consulted, recommended CT-guided lung biopsy. Will defer pending AFB results. -DC ceftriaxone (09/11-) -Continue azithromycin 500 mg p.o. daily (started 09/10-09/16) -Started IV linezolid 600 mg twice daily (09/16-09/17) -Doxycycline 100mg PO BID x1 day (09/18) -DuoNebs every 6 hours as needed -Tylenol for fever -Oxygen to keep O2 saturation between 88 to 92% -Follow-up AFB testing #Diarrhea, possible stool incontinence Patient complains of frequent bowel movements. Only 3 large soft bowel movements recorded by nurse. Patient reports frequently needing to change incontinence pads due to small amounts of stool, possibly having small amounts of stool incontinence. Patient nondistressed, no electrolyte abnormalities. -Continue to monitor for now #History of hypertension -amlodipine 10 mg p.o. daily -Metoprolol tartrate 50 mg p.o. twice daily #History of A-fib #History of CAD Patient history as stated. Takes Plavix as anticoag. Patient does not routinely see import/export administrator. -Because the patient has hemoptysis and has suspicious pulmonary lesion we will hold on Plavix at this time #History of bipolar disorder with suicidal ideation On evaluation patient denied any ideas to hurt herself or others Patient informed that she is taking Depakote as a mood stabilizer -Resume home meds: Depakote 500 mg p.o. 3 times daily #History of osteoporosis Patient on alendronate tablets weekly -Consider resuming home medication alendronate when clinically appropriate #Acute hypoxic respiratory failure resolved #Sepsis ruled out FEN: Cardiac diet DVT ppx: SCDs GI ppx: Pantoprazole IV lines: PIV Code status: Full code Plan of care discussed with senior residents Dr. Babin PGY?[address] Stahl PGY?3, and attending Dr. Hutchinson. Bogdan Ochoa MD PGY?1 Disclaimer: Despite multiple revisions, due to the dictation software being used, the document bellow may not be free of grammatical errors including phonetic/typographic errors. However, this does not deter from our commitment to providing health care in the patient's best interest in mind. Attending Provider Attestation/Addendum I have examined the patient, reviewed labs and imaging findings, discussed the case with the resident(s), and reviewed entered orders. I agree with the plan of care as outlined in this note, with these additional summaries/recommendations: Patient seen at bedside. No acute overnight events. Patient reports improvement in diarrhea today. We will continue to monitor for now. Patient denies abdominal pain or seeing blood in her stool. Patient has only completed 1 AFB which returned negative. 2 additional AFBs sent to rule out active tuberculosis. Once active TB is ruled out patient will go for biopsy of lung mass. Infectious disease following and patient transitioned to oral doxycycline for MRSA pneumonia. Atrial fibrillation remains well controlled. Continue to hold home Plavix for hx of CVA for hemoptysis which continues to improve. Dr. Evangelina MD
[2024-09-20] VITALS (10 sets, daily range): BP systolic 126–142; BP diastolic 73–85; PULSE 62–82; RESP 15–24; TEMP 36.1–36.8; O2SAT 95–99; BMI 30.4
[2024-09-20] MEDS: DIVALPROEX SOD DR 500 MG TABLET.DR PO ×3 (05:31→21:15)
[2024-09-20 05:52] LABS: Basophils # (Auto) 0.1 Thou/mm3 (0.0-0.2); Basophils % (Auto) 1 % (0-2.5); Eosinophils # (Auto) 0.1 Thou/mm3 (0.0-0.5); Eosinophils % (Auto) 1 % (0-10); Hematocrit 37.7 % (36.0-46.0); Immature Granulocytes % (Auto) 3 % (0-0); Immature Granulocytes Auto 0.28 Thou/mm3 (0.00-0.00); Lymphocytes # (Auto) 3.6 Thou/mm3 (1.0-4.8); Lymphocytes % (Auto) 33 % (10-50); Mean Corpuscular HGB Conc 34.5 g/dl (31.0-37.0); Mean Corpuscular Hemoglobin 32.7 pg (25.0-35.0); Mean Corpuscular Volume 95 fL (80-100); Monocytes # (Auto) 1.2 Thou/mm3 (0.0-0.8); Monocytes % (Auto) 11 % (0-12); Neutrophils # (Auto) 5.6 Thou/mm3 (1.8-7.7); Neutrophils % (Auto) 52 % (37-80); Nucleated Red Blood Cell % 0 /100 WBC (0); Platelet Count 367 Thou/mm3 (140-440); RDW Standard Deviation 44.2 fL (36.4-46.3); Red Blood Count 3.97 Miln/mm3 (4.00-5.20); White Blood Count 10.8 Thou/mm3 (3.6-11.0)
[2024-09-20 06:16] LABS: Alanine Aminotransferase 10 U/L (10-49); Albumin, Serum 3.4 gm/dL (3.4-4.8); Albumin/Globulin Ratio 0.8 (1.2-2.2); Alkaline Phosphatase 65 U/L (46-116); Anion Gap 8 (7-16); Aspartate Amino Transferase < 10 U/L (0-34); BUN/Creatinine Ratio 24 Ratio (12-20); Bilirubin,Total 0.4 mg/dL (0.3-1.2); Blood Urea Nitrogen 17 mg/dL (9-23); Calcium 9.6 mg/dL (8.3-10.6); Calcium (Corrected) 10.1 mg/dL (8.5-10.1); Carbon Dioxide 26.7 mMol/L (20.0-31.0); Chloride 102 mMol/L (98-107); Creatinine (Component) 0.7 mg/dL (0.6-1.3); Estimated Creatinine Clearance 81.4 mL/min (>60); Globulin 4.2 gm/dL (2.3-3.5); Glucose 92 mg/dL (74-106); Magnesium 2.1 mg/dL (1.6-2.6); Osmolality,Calculated 275 (275-295); Phosphorous 3.2 mg/dL (2.4-5.1); Potassium 4.3 mMol/L (3.4-5.1); Sodium 137 mMol/L (136-145); Total Protein 7.6 gm/dL (5.7-8.2); eGFR > 60 See Note
[2024-09-20] MEDS: NICOTINE PATCH 21 MG/24 HR PATCH.TD24 TOP (09:33)
[2024-09-20] MEDS: PANTOPRAZOLE 40 MG TABLET PO (09:34)
[2024-09-20] MEDS: METOPROLOL TARTRATE 25 MG TABLET 50 MG PO ×2 (09:34→21:14)
[2024-09-20] MEDS: amLODIPine BESYLATE 5 MG TABLET 10 MG PO (09:34)
--- NOTE | 2024-09-20 15:09 | ESPR_ITS ---
<Statement entered by Darryn Edwards MD - 09/21/24 11:25> I have discussed and was present for the essential components of the history, physical examination, diagnosis, and treatment plan with the resident. I agree with the patient's care as documented by the resident and amended herein by me. Darryn Edwards MD FACP. Documentation for date of: 09/20/24 Subjective Subjective Interval history: No acute overnight events reported. Pt seen and examined at bedside. Pt denies any other acute complaints at this time. 2 out of 3 AFB samples received, and returned negative. Pending final 1 out of 3 AFB samples prior to CT biopsy of lung. Anticipate discharge within 24 to 48 hours. Exam Vital Signs Temp Pulse Resp BP Pulse Ox O2 Del Method O2 Flow Rate 97.8 F 82 17 126/73 95 Room Air 2 09/20/24 12:00 09/20/24 12:00 09/20/24 12:00 09/20/24 12:00 09/20/24 12:00 09/20/24 12:00 09/19/24 08:00 Narrative Exam General Appearance: Pt in NAD laying comfortably in bed. HEENT: NC/AT, no scleral icterus, no conjunctival pallor, MMM Lungs: CTAB, no wheezes or crackles appreciated CVS: RRR, S1/S2 heard, no murmurs or rubs appreciated ABD: Soft, non-tender, non-distended, BS + in all 4 quadrants EXT: no deformity/edema/lesions/cyanosis/clubbing, radial pulses 2+ BL, DP pulses 2 + BL SKIN: Skin exam normal without any rashes. Neuro: A&O x 3. No gross neurological deficits. Motor and sensory grossly intact in B/L UL and LL. Psych: Appropriate mood and affect Objective Labs 09/20/24 05:21 09/20/24 05:21 Labs: Laboratory Results - last 24 hr 09/17/24 09/17/24 09/18/24 11:15 21:15 05:15 WBC RBC Hgb Hct MCV MCH MCHC RDW Std Deviation Plt Count Neut % (Auto) Lymph % (Auto) [place] % (Auto) Eos % (Auto) Baso % (Auto) Neut # (Auto) Lymph # (Auto) [place] # (Auto) Eos # (Auto) Baso # (Auto) Immature Gran # (Auto) Absolute Nucleated RBC Immature Gran % Nucleated RBC % Sodium Potassium Chloride Carbon Dioxide Anion Gap BUN Creatinine Estim Creat Clear Calc eGFR BUN/Creatinine Ratio Glucose Calculated Osmolality Calcium Corrected Calcium Phosphorus Magnesium Total Bilirubin AST ALT Alkaline Phosphatase Total Protein Albumin Globulin Albumin/Globulin Ratio Mycobacterial Culture See Feb Rpt See Feb Rpt TB Test (QFT) See Feb Rpt 09/20/24 05:21 WBC 10.8 RBC 3.97 L Hgb 13.0 Hct 37.7 MCV 95 MCH 32.7 MCHC 34.5 RDW Std Deviation 44.2 Plt Count 367 D Neut % (Auto) 52 Lymph % (Auto) 33 [place] % (Auto) 11 Eos % (Auto) 1 Baso % (Auto) 1 Neut # (Auto) 5.6 Lymph # (Auto) 3.6 [place] # (Auto) 1.2 H Eos # (Auto) 0.1 Baso # (Auto) 0.1 Immature Gran # (Auto) 0.28 H Absolute Nucleated RBC 0.00 Immature Gran % 3 H Nucleated RBC % 0 Sodium 137 Potassium 4.3 Chloride 102 Carbon Dioxide 26.7 Anion Gap 8 BUN 17 Creatinine 0.7 Estim Creat Clear Calc 81.4 eGFR > 60 BUN/Creatinine Ratio 24 H Glucose 92 Calculated Osmolality 275 Calcium 9.6 Corrected Calcium 10.1 Phosphorus 3.2 Magnesium 2.1 Total Bilirubin 0.4 AST < 10 ALT 10 Alkaline Phosphatase 65 Total Protein 7.6 Albumin 3.4 Globulin 4.2 H Albumin/Globulin Ratio 0.8 L Mycobacterial Culture TB Test (QFT) Quality Measures Quality Measures VTE prophylaxis Advance care planning discussed with:: patient Assessment & Plan Assessment Current Active Medications: Generic Name Dose Route Start Last Admin Trade Name Freq PRN Reason Stop Dose Admin Acetaminophen 650 mg 09/11/24 22:50 Acetaminophen 325 Mg Tablet PO 10/11/24 22:49 Q6H PRN Fever >101.5 Acetaminophen 650 mg 09/11/24 22:50 09/13/24 20:56 Acetaminophen 325 Mg Tablet PO 10/11/24 22:49 650 mg Q6H PRN Administration PAIN SCALE 1-3 (mild Albuterol/Ipratropium 3 ml 09/11/24 22:50 Albuterol/Ipratropium (Duoneb) Rt Ruth 3 Ml Nebu INH 10/12/24 00:59 Q6HRRT PRN wheezing Amlodipine Besylate 10 mg 09/11/24 23:05 09/20/24 09:34 Amlodipine Besylate 5 Mg Tablet PO 10/11/24 23:04 10 mg QDAY MAGDY Administration Divalproex Sodium 500 mg 09/12/24 22:00 09/20/24 14:[address] 500 Mg Tablet.Dr PO 10/12/24 21:59 500 mg TID MAGDY Administration Guaifenesin 100 mg 09/14/24 14:51 Guaifenesin Syrup 200 Mg/10 Ml Udc PO 10/14/24 14:50 QID PRN COUGH Protocol Labetalol HCl 10 mg 09/11/24 23:08 Labetalol Inj 5 Mg/Ml Vial 20 Ml IVP 10/11/24 23:07 Q2H PRN SBP >180mmHg Metoprolol Tartrate 50 mg 09/12/24 21:00 09/20/24 09:34 Metoprolol Tartrate 25 Mg Tablet PO 10/12/24 20:59 50 mg BID MAGDY Administration Nicotine 21 mg 09/15/24 14:30 09/20/24 09:33 Nicotine Patch 21 Mg/24 Hr Patch.Td24 TOP 10/15/24 14:29 21 mg QDAY MAGDY Administration Ondansetron HCl 4 mg 09/11/24 22:50 Ondansetron Inj 2 Mg/Ml Inj 2 Ml IV 10/11/24 22:49 Q6H PRN NAUSEA OR VOMITING Protocol Pantoprazole Sodium 40 mg 09/12/24 09:00 09/20/24 09:34 Pantoprazole 40 Mg Tablet PO 10/12/24 08:59 40 mg QDAY MAGDY Administration Plan 64-year-old female patient with reportedly past medical history of COPD not on oxygen at home, hypertension, rheumatoid arthritis on Remicade infusion, A-fib on Eliquis, hypertension, bipolar disorder with suicidal ideation, osteoporosis, presented to the ED due to productive cough with tinge of blood in the sputum for the past 2 weeks. Patient was admitted to rule out TB. #Community-acquired pneumonia #COPD exacerbation #TB rule out #MRSA pneumonia (treated) DDx: Pneumonia versus TB infection versus cocci versus neoplasm versus COPD exacerbation Patient met SIRS criteria with elevated heart rate, elevated WBCs, and pulmonary infiltrate, however sepsis was ruled out due to lack of endorgan damage including normal lactate. Patient presented with cough which is productive with tinge of blood, weight loss, history of exposure to TB however she was given anti-TB medications for 3 months Patient is on Remicade for rheumatoid arthritis which is a risk factor for TB reactivation, however patient likely had negative test of before beginning infusions. Patient also has long history of smoking, which he also increase the risk of pulmonary neoplasm. CT showed dense pneumonic consolidation versus pulmonary mass in the left lower lobe, 5.6 x 3.5 cm Spoke to patient's instrument and control technician, patient had negative QuantiFERON and cocci testing prior to starting infliximab. If patient does not show improvement tomorrow, consider CT to reeval changes and pulmonary lesion. Cocci negative. Blood cultures 48 hours has been negative, first AFB smear has been negative pending 2 out of 3 AFB smears, pending mycobacterial culture. Sputum culture and Gram showed MRSA for which patient was started on IV vancomycin otherwise patient complaining of itchiness and antibiotic was switched for IV linezolid. Repeat CT chest showed dense consolidation versus pulmonary mass in the left lower lobe measuring 5.2 x 3.4 cm. Oncologist was consulted, greatly appreciate recommendations -DuoNebs every 6 hours as needed -Tylenol for fever -Oxygen to keep O2 saturation between 88 to 92% -Follow-up /3AFB testing -2/3 AFB samples negative, Quantiferon negative -Oncology recommended CT-guided lung biopsy after last 1/3 sample negative. #Diarrhea, possible stool incontinence Patient complains of frequent bowel movements. Only 3 large soft bowel movements recorded by nurse. Patient reports frequently needing to change incontinence pads due to small amounts of stool, possibly having small amounts of stool incontinence. Patient nondistressed, no electrolyte abnormalities. -Continue to monitor for now #History of hypertension -amlodipine 10 mg p.o. daily -Metoprolol tartrate 50 mg p.o. twice daily #History of A-fib #History of CAD Patient history as stated. Takes Plavix as anticoag. Patient does not routinely see photo printer. -Because the patient has hemoptysis and has suspicious pulmonary lesion we will hold on Plavix at this time #History of bipolar disorder with suicidal ideation On evaluation patient denied any ideas to hurt herself or others Patient informed that she is taking Depakote as a mood stabilizer -Resume home meds: Depakote 500 mg p.o. 3 times daily #History of osteoporosis Patient on alendronate tablets weekly -Consider resuming home medication alendronate when clinically appropriate #Acute hypoxic respiratory failure resolved #Sepsis ruled out FEN: Cardiac diet DVT ppx: SCDs GI ppx: Pantoprazole IV lines: PIV Code status: Full code Plan of care discussed with senior resident Dr. Krause PGY?3, and attending Dr. Edwards. Chyna Babin MD PGY?2
[2024-09-21] VITALS (10 sets, daily range): BP systolic 128–156; BP diastolic 71–87; PULSE 57–100; RESP 12–23; TEMP 36.1–36.8; O2SAT 95–99; BMI 30.4
[2024-09-21] MEDS: DIVALPROEX SOD DR 500 MG TABLET.DR PO ×3 (06:19→21:58)
[2024-09-21 06:33] LABS: Basophils # (Auto) 0.1 Thou/mm3 (0.0-0.2); Basophils % (Auto) 1 % (0-2.5); Eosinophils # (Auto) 0.1 Thou/mm3 (0.0-0.5); Eosinophils % (Auto) 1 % (0-10); Hematocrit 39.8 % (36.0-46.0); Hemoglobin 13.4 g/dL (12.0-16.0); Immature Granulocytes % (Auto) 2 % (0-0); Immature Granulocytes Auto 0.23 Thou/mm3 (0.00-0.00); Lymphocytes # (Auto) 3.5 Thou/mm3 (1.0-4.8); Lymphocytes % (Auto) 30 % (10-50); Mean Corpuscular HGB Conc 33.7 g/dl (31.0-37.0); Mean Corpuscular Hemoglobin 32.4 pg (25.0-35.0); Mean Corpuscular Volume 96 fL (80-100); Monocytes # (Auto) 1.3 Thou/mm3 (0.0-0.8); Monocytes % (Auto) 11 % (0-12); Neutrophils # (Auto) 6.4 Thou/mm3 (1.8-7.7); Neutrophils % (Auto) 55 % (37-80); Nucleated Red Blood Cell % 0 /100 WBC (0); Platelet Count 355 Thou/mm3 (140-440); RDW Standard Deviation 45.3 fL (36.4-46.3); Red Blood Count 4.13 Miln/mm3 (4.00-5.20); White Blood Count 11.6 Thou/mm3 (3.6-11.0)
[2024-09-21 07:06] LABS: Alanine Aminotransferase 8 U/L (10-49); Albumin, Serum 3.6 gm/dL (3.4-4.8); Albumin/Globulin Ratio 0.8 (1.2-2.2); Alkaline Phosphatase 74 U/L (46-116); Anion Gap 7 (7-16); Aspartate Amino Transferase < 10 U/L (0-34); BUN/Creatinine Ratio 25 Ratio (12-20); Bilirubin,Total 0.4 mg/dL (0.3-1.2); Blood Urea Nitrogen 20 mg/dL (9-23); Calcium 9.3 mg/dL (8.3-10.6); Calcium (Corrected) 9.6 mg/dL (8.5-10.1); Carbon Dioxide 27.8 mMol/L (20.0-31.0); Chloride 100 mMol/L (98-107); Creatinine (Component) 0.8 mg/dL (0.6-1.3); Estimated Creatinine Clearance 71.2 mL/min (>60); Globulin 4.5 gm/dL (2.3-3.5); Glucose 96 mg/dL (74-106); Osmolality,Calculated 272 (275-295); Phosphorous 3.3 mg/dL (2.4-5.1); Potassium 4.2 mMol/L (3.4-5.1); Sodium 135 mMol/L (136-145); Total Protein 8.1 gm/dL (5.7-8.2); eGFR > 60 See Note
[2024-09-21] MEDS: amLODIPine BESYLATE 5 MG TABLET 10 MG PO (08:12)
[2024-09-21] MEDS: PANTOPRAZOLE 40 MG TABLET PO (08:13)
[2024-09-21] MEDS: METOPROLOL TARTRATE 25 MG TABLET 50 MG PO ×2 (08:13→21:57)
[2024-09-21] MEDS: NICOTINE PATCH 21 MG/24 HR PATCH.TD24 TOP (08:13)
--- NOTE | 2024-09-21 09:18 | PD.IDPROG ---
Subjective Subjective Interval history: afb neg. ok to proceed with invasive procedure off abx. will await path and f/u on that only while in house. Exam Vital Signs Temp Pulse Resp BP Pulse Ox O2 Del Method O2 Flow Rate 97.1 F 87 15 145/86 H 95 Room Air 2 09/21/24 08:00 09/21/24 08:13 09/21/24 08:00 09/21/24 08:13 09/21/24 08:00 09/21/24 08:00 09/19/24 08:00 Narrative Exam limited eval today Objective - Internal Medicine Labs 09/21/24 05:56 09/21/24 05:56 Labs: Laboratory Results - last 24 hr 09/21/24 05:56 WBC 11.6 H RBC 4.13 Hgb 13.4 Hct 39.8 MCV 96 MCH 32.4 MCHC 33.7 RDW Std Deviation 45.3 Plt Count 355 Neut % (Auto) 55 Lymph % (Auto) 30 [place] % (Auto) 11 Eos % (Auto) 1 Baso % (Auto) 1 Neut # (Auto) 6.4 Lymph # (Auto) 3.5 [place] # (Auto) 1.3 H Eos # (Auto) 0.1 Baso # (Auto) 0.1 Immature Gran # (Auto) 0.23 H Absolute Nucleated RBC 0.00 Immature Gran % 2 H Nucleated RBC % 0 Sodium 135 L Potassium 4.2 Chloride 100 Carbon Dioxide 27.8 Anion Gap 7 BUN 20 Creatinine 0.8 Estim Creat Clear Calc 71.2 eGFR > 60 BUN/Creatinine Ratio 25 H Glucose 96 Calculated Osmolality 272 L Calcium 9.3 Corrected Calcium 9.6 Phosphorus 3.3 Magnesium 2.0 Total Bilirubin 0.4 AST < 10 ALT 8 L Alkaline Phosphatase 74 Total Protein 8.1 Albumin 3.6 Globulin 4.5 H Albumin/Globulin Ratio 0.8 L Assessment & Plan A&P Narrative 1. Admitted with pneumonia COPD respiratory failure improved with supportive care.cocci neg 09/11. avoid smoke. mrsa pos sputum. primary desiring rx but here more for exac of copd. with a smoking hx noted hx of breast CA noted. imaging somewhat unimpressive on review no objection to bx of area hx of tb exposure with neg qtf. received about 3 mo of multiple drug rx yrs agoand afb neg x 3 here along with neg qtf ok for lung bx as afb's neg, lower lobe disease is rarely mycobacterial have to wait for today's afb's at [facility]. they just arrived, if clinically improved, you can repeat imaging in 4-6 weeks as it often lags behind clinical progress. if some sx persist, then bx becomes more important in w/u. we can see again on Tuesday Time Spent With Patient Time: Total time spent is greater than 50% in coordination of care (as documented) at patient's floor/unit and/or counseling patient:
--- NOTE | 2024-09-21 09:46 | PC.SS ---
Follow up note: Patient still r/o TB. Pending one more AFB. Patient will need biopsy. Phsyician team may decide on o/p biopsy procedure.
--- NOTE | 2024-09-21 11:16 | ESPR_ITS ---
<Statement entered by Darryn Edwards MD - 09/21/24 11:25> I have discussed and was present for the essential components of the history, physical examination, diagnosis, and treatment plan with the resident. I agree with the patient's care as documented by the resident and amended herein by me. Darryn Edwards MD FACP. Documentation for date of: 09/21/24 Subjective Subjective Interval history: No acute overnight events reported. Pt seen and examined at bedside. Pt denies any other acute complaints at this time. 2 out of 3 AFB samples received, and returned negative. Pending final 1 out of 3 AFB samples prior to CT biopsy of lung. Anticipate discharge within 24 to 48 hours. Patient agrees with course of plan. All questions asked and answered. Exam Vital Signs Temp Pulse Resp BP Pulse Ox O2 Del Method O2 Flow Rate 97.1 F 87 15 145/86 H 95 Room Air 2 09/21/24 08:00 09/21/24 08:13 09/21/24 08:00 09/21/24 08:13 09/21/24 08:00 09/21/24 08:00 09/19/24 08:00 Narrative Exam General Appearance: Pt in NAD laying sitting comfortably in bed. HEENT: NC/AT, no scleral icterus, no conjunctival pallor, MMM Lungs: CTAB, no wheezes or crackles appreciated CVS: RRR, S1/S2 heard, no murmurs or rubs appreciated ABD: Soft, non-tender, non-distended, BS + in all 4 quadrants EXT: no deformity/edema/lesions/cyanosis/clubbing, radial pulses 2+ BL, DP pulses 2 + BL SKIN: Skin exam normal without any rashes. Neuro: A&O x 3. No gross neurological deficits. Motor and sensory grossly intact in B/L UL and LL. Psych: Appropriate mood and affect Objective Labs 09/21/24 05:56 09/21/24 05:56 Labs: Laboratory Results - last 24 hr 09/21/24 05:56 WBC 11.6 H RBC 4.13 Hgb 13.4 Hct 39.8 MCV 96 MCH 32.4 MCHC 33.7 RDW Std Deviation 45.3 Plt Count 355 Neut % (Auto) 55 Lymph % (Auto) 30 [place] % (Auto) 11 Eos % (Auto) 1 Baso % (Auto) 1 Neut # (Auto) 6.4 Lymph # (Auto) 3.5 [place] # (Auto) 1.3 H Eos # (Auto) 0.1 Baso # (Auto) 0.1 Immature Gran # (Auto) 0.23 H Absolute Nucleated RBC 0.00 Immature Gran % 2 H Nucleated RBC % 0 Sodium 135 L Potassium 4.2 Chloride 100 Carbon Dioxide 27.8 Anion Gap 7 BUN 20 Creatinine 0.8 Estim Creat Clear Calc 71.2 eGFR > 60 BUN/Creatinine Ratio 25 H Glucose 96 Calculated Osmolality 272 L Calcium 9.3 Corrected Calcium 9.6 Phosphorus 3.3 Magnesium 2.0 Total Bilirubin 0.4 AST < 10 ALT 8 L Alkaline Phosphatase 74 Total Protein 8.1 Albumin 3.6 Globulin 4.5 H Albumin/Globulin Ratio 0.8 L Quality Measures Quality Measures VTE prophylaxis Advance care planning discussed with:: patient Assessment & Plan Assessment Current Active Medications: Generic Name Dose Route Start Last Admin Trade Name Freq PRN Reason Stop Dose Admin Acetaminophen 650 mg 09/11/24 22:50 Acetaminophen 325 Mg Tablet PO 10/11/24 22:49 Q6H PRN Fever >101.5 Acetaminophen 650 mg 09/11/24 22:50 09/13/24 20:56 Acetaminophen 325 Mg Tablet PO 10/11/24 22:49 650 mg Q6H PRN Administration PAIN SCALE 1-3 (mild Albuterol/Ipratropium 3 ml 09/11/24 22:50 Albuterol/Ipratropium (Duoneb) Rt Ruth 3 Ml Nebu INH 10/12/24 00:59 Q6HRRT PRN wheezing Amlodipine Besylate 10 mg 09/11/24 23:05 09/21/24 08:12 Amlodipine Besylate 5 Mg Tablet PO 10/11/24 23:04 10 mg QDAY MAGDY Administration Divalproex Sodium 500 mg 09/12/24 22:00 09/21/24 06:[address] 500 Mg Tablet.Dr PO 10/12/24 21:59 500 mg TID MAGDY Administration Guaifenesin 100 mg 09/14/24 14:51 Guaifenesin Syrup 200 Mg/10 Ml Udc PO 10/14/24 14:50 QID PRN COUGH Protocol Labetalol HCl 10 mg 09/11/24 23:08 Labetalol Inj 5 Mg/Ml Vial 20 Ml IVP 10/11/24 23:07 Q2H PRN SBP >180mmHg Metoprolol Tartrate 50 mg 09/12/24 21:00 09/21/24 08:13 Metoprolol Tartrate 25 Mg Tablet PO 10/12/24 20:59 50 mg BID MAGDY Administration Nicotine 21 mg 09/15/24 14:30 09/21/24 08:13 Nicotine Patch 21 Mg/24 Hr Patch.Td24 TOP 10/15/24 14:29 21 mg QDAY MAGDY Administration Ondansetron HCl 4 mg 09/11/24 22:50 Ondansetron Inj 2 Mg/Ml Inj 2 Ml IV 10/11/24 22:49 Q6H PRN NAUSEA OR VOMITING Protocol Pantoprazole Sodium 40 mg 09/12/24 09:00 09/21/24 08:13 Pantoprazole 40 Mg Tablet PO 10/12/24 08:59 40 mg QDAY MAGDY Administration Plan 64-year-old female patient with reportedly past medical history of COPD not on oxygen at home, hypertension, rheumatoid arthritis on Remicade infusion, A-fib on Eliquis, hypertension, bipolar disorder with suicidal ideation, osteoporosis, presented to the ED due to productive cough with tinge of blood in the sputum for the past 2 weeks. Patient was admitted to rule out TB. #Community-acquired pneumonia #COPD exacerbation #TB rule out #MRSA pneumonia (treated) DDx: Pneumonia versus TB infection versus cocci versus neoplasm versus COPD exacerbation Patient met SIRS criteria with elevated heart rate, elevated WBCs, and pulmonary infiltrate, however sepsis was ruled out due to lack of endorgan damage including normal lactate. Patient presented with cough which is productive with tinge of blood, weight loss, history of exposure to TB however she was given anti-TB medications for 3 months Patient is on Remicade for rheumatoid arthritis which is a risk factor for TB reactivation, however patient likely had negative test of before beginning infusions. Patient also has long history of smoking, which he also increase the risk of pulmonary neoplasm. CT showed dense pneumonic consolidation versus pulmonary mass in the left lower lobe, 5.6 x 3.5 cm Spoke to patient's supply chain program manager, patient had negative QuantiFERON and cocci testing prior to starting infliximab. If patient does not show improvement tomorrow, consider CT to reeval changes and pulmonary lesion. Cocci negative. Blood cultures 48 hours has been negative, first AFB smear has been negative pending 2 out of 3 AFB smears, pending mycobacterial culture. Sputum culture and Gram showed MRSA for which patient was started on IV vancomycin otherwise patient complaining of itchiness and antibiotic was switched for IV linezolid. Repeat CT chest showed dense consolidation versus pulmonary mass in the left lower lobe measuring 5.2 x 3.4 cm. Oncologist was consulted, greatly appreciate recommendations -DuoNebs every 6 hours as needed -Tylenol for fever -Oxygen to keep O2 saturation between 88 to 92% -Follow-up FB testing -2/3 AFB samples negative, Quantiferon negative -Oncology recommended CT-guided lung biopsy after last 06/29 sample negative. #Diarrhea, possible stool incontinence Patient complains of frequent bowel movements. Only 3 large soft bowel movements recorded by nurse. Patient reports frequently needing to change incontinence pads due to small amounts of stool, possibly having small amounts of stool incontinence. Patient nondistressed, no electrolyte abnormalities. -Continue to monitor for now #History of hypertension -amlodipine 10 mg p.o. daily -Metoprolol tartrate 50 mg p.o. twice daily #History of A-fib #History of CAD Patient history as stated. Takes Plavix as anticoag. Patient does not routinely see traffic control signaler. -Because the patient has hemoptysis and has suspicious pulmonary lesion we will hold on Plavix at this time #History of bipolar disorder with suicidal ideation On evaluation patient denied any ideas to hurt herself or others Patient informed that she is taking Depakote as a mood stabilizer -Resume home meds: Depakote 500 mg p.o. 3 times daily #History of osteoporosis Patient on alendronate tablets weekly -Consider resuming home medication alendronate when clinically appropriate #Acute hypoxic respiratory failure resolved #Sepsis ruled out FEN: Cardiac diet DVT ppx: SCDs GI ppx: Pantoprazole IV lines: PIV Code status: Full code Plan of care discussed with senior resident Dr. Krause PGY?3, and attending Dr. Edwards. Chyna Babin MD PGY?2
[2024-09-22] VITALS (14 sets, daily range): BP systolic 132–154; BP diastolic 77–91; PULSE 53–100; RESP 12–29; TEMP 35.9–36.5; O2SAT 96–100
[2024-09-22] MEDS: DIVALPROEX SOD DR 500 MG TABLET.DR PO ×3 (06:29→21:31)
[2024-09-22 06:51] LABS: Alanine Aminotransferase 7 U/L (10-49); Albumin, Serum 3.5 gm/dL (3.4-4.8); Albumin/Globulin Ratio 0.8 (1.2-2.2); Alkaline Phosphatase 74 U/L (46-116); Anion Gap 7 (7-16); Aspartate Amino Transferase 10 U/L (0-34); BUN/Creatinine Ratio 18 Ratio (12-20); Bilirubin,Total 0.4 mg/dL (0.3-1.2); Blood Urea Nitrogen 16 mg/dL (9-23); Calcium 9.2 mg/dL (8.3-10.6); Calcium (Corrected) 9.6 mg/dL (8.5-10.1); Chloride 103 mMol/L (98-107); Creatinine (Component) 0.9 mg/dL (0.6-1.3); Estimated Creatinine Clearance 63.2 mL/min (>60); Globulin 4.3 gm/dL (2.3-3.5); Glucose 97 mg/dL (74-106); Magnesium 2.1 mg/dL (1.6-2.6); Osmolality,Calculated 275 (275-295); Phosphorous 3.5 mg/dL (2.4-5.1); Potassium 4.1 mMol/L (3.4-5.1); Sodium 137 mMol/L (136-145); Total Protein 7.8 gm/dL (5.7-8.2); eGFR > 60 See Note
[2024-09-22 07:58] LABS: Basophils # (Auto) 0.1 Thou/mm3 (0.0-0.2); Basophils % (Auto) 1 % (0-2.5); Eosinophils # (Auto) 0.1 Thou/mm3 (0.0-0.5); Eosinophils % (Auto) 1 % (0-10); Hematocrit 38.1 % (36.0-46.0); Hemoglobin 12.8 g/dL (12.0-16.0); Immature Granulocytes % (Auto) 2 % (0-0); Lymphocytes # (Auto) 3.7 Thou/mm3 (1.0-4.8); Lymphocytes % (Auto) 31 % (10-50); Mean Corpuscular HGB Conc 33.6 g/dl (31.0-37.0); Mean Corpuscular Hemoglobin 32.4 pg (25.0-35.0); Mean Corpuscular Volume 97 fL (80-100); Monocytes # (Auto) 1.4 Thou/mm3 (0.0-0.8); Monocytes % (Auto) 12 % (0-12); Neutrophils # (Auto) 6.5 Thou/mm3 (1.8-7.7); Neutrophils % (Auto) 54 % (37-80); Nucleated Red Blood Cell % 0 /100 WBC (0); Platelet Count 313 Thou/mm3 (140-440); RDW Standard Deviation 45.6 fL (36.4-46.3); Red Blood Count 3.95 Miln/mm3 (4.00-5.20)
[2024-09-22] MEDS: amLODIPine BESYLATE 5 MG TABLET 10 MG PO (08:56)
[2024-09-22] MEDS: PANTOPRAZOLE 40 MG TABLET PO (08:56)
[2024-09-22] MEDS: METOPROLOL TARTRATE 25 MG TABLET 50 MG PO ×2 (08:57→21:30)
[2024-09-22] MEDS: NICOTINE PATCH 21 MG/24 HR PATCH.TD24 TOP (08:57)
--- NOTE | 2024-09-22 10:17 | PC.SS ---
rounding note: Patient still pending one more AFB results. Possible d/c home if this comes back.
--- NOTE | 2024-09-22 12:43 | ESPR_ITS ---
<Statement entered by Darryn Edwards MD - 09/22/24 17:13> I have discussed and was present for the essential components of the history, physical examination, diagnosis, and treatment plan with the resident. I agree with the patient's care as documented by the resident and amended herein by me. Darryn Edwards MD FACP. Documentation for date of: 09/22/24 Subjective Subjective Interval history: Patient seen examined the a.m. No complaints. No events overnight. Pending sputum cultures. Exam Vital Signs Temp Pulse Resp BP Pulse Ox O2 Del Method O2 Flow Rate 96.7 F L 88 19 137/90 H 96 Room Air 2 09/22/24 12:00 09/22/24 12:00 09/22/24 12:00 09/22/24 12:00 09/22/24 12:00 09/22/24 12:00 09/19/24 08:00 Narrative Exam General Appearance: Pt in NAD laying sitting comfortably in bed. HEENT: NC/AT, no scleral icterus, no conjunctival pallor, MMM Lungs: CTAB, no wheezes or crackles appreciated CVS: RRR, S1/S2 heard, no murmurs or rubs appreciated ABD: Soft, non-tender, non-distended, BS + in all 4 quadrants EXT: no deformity/edema/lesions/cyanosis/clubbing, radial pulses 2+ BL, DP pulses 2 + BL SKIN: Skin exam normal without any rashes. Neuro: A&O x 3. No gross neurological deficits. Motor and sensory grossly intact in B/L UL and LL. Psych: Appropriate mood and affect Objective Labs 09/22/24 07:24 09/22/24 04:53 Labs: Laboratory Results - last 24 hr 09/22/24 09/22/24 04:53 07:24 WBC 12.0 H RBC 3.95 L Hgb 12.8 Hct 38.1 MCV 97 MCH 32.4 MCHC 33.6 RDW Std Deviation 45.6 Plt Count 313 D Neut % (Auto) 54 Lymph % (Auto) 31 [place] % (Auto) 12 Eos % (Auto) 1 Baso % (Auto) 1 Neut # (Auto) 6.5 Lymph # (Auto) 3.7 [place] # (Auto) 1.4 H Eos # (Auto) 0.1 Baso # (Auto) 0.1 Immature Gran # (Auto) 0.20 H Absolute Nucleated RBC 0.00 Immature Gran % 2 H Nucleated RBC % 0 Sodium 137 Potassium 4.1 Chloride 103 Carbon Dioxide 27.0 Anion Gap 7 BUN 16 Creatinine 0.9 Estim Creat Clear Calc 63.2 eGFR > 60 BUN/Creatinine Ratio 18 Glucose 97 Calculated Osmolality 275 Calcium 9.2 Corrected Calcium 9.6 Phosphorus 3.5 Magnesium 2.1 Total Bilirubin 0.4 AST 10 ALT 7 L Alkaline Phosphatase 74 Total Protein 7.8 Albumin 3.5 Globulin 4.3 H Albumin/Globulin Ratio 0.8 L Quality Measures Quality Measures VTE prophylaxis Advance care planning discussed with:: patient Assessment & Plan Assessment Current Active Medications: Generic Name Dose Route Start Last Admin Trade Name Freq PRN Reason Stop Dose Admin Acetaminophen 650 mg 09/11/24 22:50 Acetaminophen 325 Mg Tablet PO 10/11/24 22:49 Q6H PRN Fever >101.5 Acetaminophen 650 mg 09/11/24 22:50 09/13/24 20:56 Acetaminophen 325 Mg Tablet PO 10/11/24 22:49 650 mg Q6H PRN Administration PAIN SCALE 1-3 (mild Albuterol/Ipratropium 3 ml 09/11/24 22:50 Albuterol/Ipratropium (Duoneb) Rt Ruth 3 Ml Nebu INH 10/12/24 00:59 Q6HRRT PRN wheezing Amlodipine Besylate 10 mg 09/11/24 23:05 09/22/24 08:56 Amlodipine Besylate 5 Mg Tablet PO 10/11/24 23:04 10 mg QDAY MAGDY Administration Divalproex Sodium 500 mg 09/12/24 22:00 09/22/24 06:[address] 500 Mg Tablet.Dr PO 10/12/24 21:59 500 mg TID MAGDY Administration Guaifenesin 100 mg 09/14/24 14:51 Guaifenesin Syrup 200 Mg/10 Ml Udc PO 10/14/24 14:50 QID PRN COUGH Protocol Labetalol HCl 10 mg 09/11/24 23:08 Labetalol Inj 5 Mg/Ml Vial 20 Ml IVP 10/11/24 23:07 Q2H PRN SBP >180mmHg Metoprolol Tartrate 50 mg 09/12/24 21:00 09/22/24 08:57 Metoprolol Tartrate 25 Mg Tablet PO 10/12/24 20:59 50 mg BID MAGDY Administration Nicotine 21 mg 09/15/24 14:30 09/22/24 08:57 Nicotine Patch 21 Mg/24 Hr Patch.Td24 TOP 10/15/24 14:29 21 mg QDAY MAGDY Administration Ondansetron HCl 4 mg 09/11/24 22:50 Ondansetron Inj 2 Mg/Ml Inj 2 Ml IV 10/11/24 22:49 Q6H PRN NAUSEA OR VOMITING Protocol Pantoprazole Sodium 40 mg 09/12/24 09:00 09/22/24 08:56 Pantoprazole 40 Mg Tablet PO 10/12/24 08:59 40 mg QDAY MAGDY Administration Plan 64-year-old female patient with reportedly past medical history of COPD not on oxygen at home, hypertension, rheumatoid arthritis on Remicade infusion, A-fib on Eliquis, hypertension, bipolar disorder with suicidal ideation, osteoporosis, presented to the ED due to productive cough with tinge of blood in the sputum for the past 2 weeks. Patient was admitted to rule out TB. #Community-acquired pneumonia #COPD exacerbation #TB rule out #MRSA pneumonia (treated) Assessment: DDx: Pneumonia versus TB infection versus cocci versus neoplasm versus COPD exacerbation Patient met SIRS criteria with elevated heart rate, elevated WBCs, and pulmonary infiltrate, however sepsis was ruled out due to lack of endorgan damage including normal lactate. Patient presented with cough which is productive with tinge of blood, weight loss, history of exposure to TB however she was given anti-TB medications for 3 months Patient is on Remicade for rheumatoid arthritis which is a risk factor for TB reactivation, however patient likely had negative test of before beginning infusions. Patient also has long history of smoking, which he also increase the risk of pulmonary neoplasm. CT showed dense pneumonic consolidation versus pulmonary mass in the left lower lobe, 5.6 x 3.5 cm Spoke to patient's nuclear powerplant mechanic helper, patient had negative QuantiFERON and cocci testing prior to starting infliximab. If patient does not show improvement tomorrow, consider CT to reeval changes and pulmonary lesion. Cocci negative. Blood cultures 48 hours has been negative, first AFB smear has been negative pending 2 out of 3 AFB smears, pending mycobacterial culture. Sputum culture and Gram showed MRSA for which patient was started on IV vancomycin otherwise patient complaining of itchiness and antibiotic was switched for IV linezolid. Repeat CT chest showed dense consolidation versus pulmonary mass in the left lower lobe measuring 5.2 x 3.4 cm. Oncologist was consulted, greatly appreciate recommendations Plan: -DuoNebs every 6 hours as needed -Tylenol for fever -Oxygen to keep O2 saturation between 88 to 92% -Follow-up 3AFB testing -2/3 AFB samples negative, Quantiferon negative -Oncology recommended CT-guided lung biopsy after last 13 sample negative. #Diarrhea, possible stool incontinence Patient complains of frequent bowel movements. Only 3 large soft bowel movements recorded by nurse. Patient reports frequently needing to change incontinence pads due to small amounts of stool, possibly having small amounts of stool incontinence. Patient nondistressed, no electrolyte abnormalities. -Continue to monitor for now #History of hypertension -amlodipine 10 mg p.o. daily -Metoprolol tartrate 50 mg p.o. twice daily #History of A-fib #History of CAD Patient history as stated. Takes Plavix as anticoag. Patient does not routinely see sales representative trainee. -Because the patient has hemoptysis and has suspicious pulmonary lesion we will hold on Plavix at this time #History of bipolar disorder with suicidal ideation On evaluation patient denied any ideas to hurt herself or others Patient informed that she is taking Depakote as a mood stabilizer -Resume home meds: Depakote 500 mg p.o. 3 times daily #History of osteoporosis Patient on alendronate tablets weekly -Consider resuming home medication alendronate when clinically appropriate #Acute hypoxic respiratory failure resolved #Sepsis ruled out FEN: Cardiac diet DVT ppx: SCDs GI ppx: Pantoprazole IV lines: PIV Code status: Full code - Patient's care was discussed with my attending physician, Dr. Jerry Krause MD Internal Medicine PGY-3
--- NOTE | 2024-09-22 16:17 | PC.SS ---
SS spoke with dietation who will visit pt SS met with pt at bedside using all precautions; pt asked for information regarding dietation and learn how to plan meals
[2024-09-23] VITALS (10 sets, daily range): BP systolic 119–157; BP diastolic 58–83; PULSE 59–94; RESP 18–20; TEMP 35.8–36.4; O2SAT 95–97
[2024-09-23] MEDS: DIVALPROEX SOD DR 500 MG TABLET.DR PO ×3 (05:56→21:37)
[2024-09-23 06:11] LABS: Basophils # (Auto) 0.1 Thou/mm3 (0.0-0.2); Basophils % (Auto) 1 % (0-2.5); Eosinophils # (Auto) 0.1 Thou/mm3 (0.0-0.5); Eosinophils % (Auto) 1 % (0-10); Hematocrit 34.9 % (36.0-46.0); Immature Granulocytes % (Auto) 1 % (0-0); Immature Granulocytes Auto 0.17 Thou/mm3 (0.00-0.00); Lymphocytes # (Auto) 3.7 Thou/mm3 (1.0-4.8); Lymphocytes % (Auto) 31 % (10-50); Mean Corpuscular HGB Conc 34.4 g/dl (31.0-37.0); Mean Corpuscular Hemoglobin 32.3 pg (25.0-35.0); Mean Corpuscular Volume 94 fL (80-100); Monocytes # (Auto) 1.6 Thou/mm3 (0.0-0.8); Monocytes % (Auto) 14 % (0-12); Neutrophils # (Auto) 6.2 Thou/mm3 (1.8-7.7); Neutrophils % (Auto) 52 % (37-80); Nucleated Red Blood Cell % 0 /100 WBC (0); Platelet Count 306 Thou/mm3 (140-440); RDW Standard Deviation 44.9 fL (36.4-46.3); Red Blood Count 3.71 Miln/mm3 (4.00-5.20); White Blood Count 11.8 Thou/mm3 (3.6-11.0)
[2024-09-23 06:50] LABS: Albumin, Serum 3.3 gm/dL (3.4-4.8); Albumin/Globulin Ratio 0.8 (1.2-2.2); Alkaline Phosphatase 64 U/L (46-116); Anion Gap 7 (7-16); Aspartate Amino Transferase 15 U/L (0-34); BUN/Creatinine Ratio 18 Ratio (12-20); Bilirubin,Total 0.4 mg/dL (0.3-1.2); Blood Urea Nitrogen 14 mg/dL (9-23); Calcium 8.9 mg/dL (8.3-10.6); Calcium (Corrected) 9.5 mg/dL (8.5-10.1); Carbon Dioxide 26.5 mMol/L (20.0-31.0); Chloride 104 mMol/L (98-107); Creatinine (Component) 0.8 mg/dL (0.6-1.3); Estimated Creatinine Clearance 71.1 mL/min (>60); Globulin 4.2 gm/dL (2.3-3.5); Glucose 90 mg/dL (74-106); Magnesium 2.1 mg/dL (1.6-2.6); Osmolality,Calculated 274 (275-295); Phosphorous 3.9 mg/dL (2.4-5.1); Sodium 137 mMol/L (136-145); Total Protein 7.5 gm/dL (5.7-8.2); eGFR > 60 See Note
[2024-09-23 06:53] LABS: Alanine Aminotransferase 7 U/L (10-49)
[2024-09-23] MEDS: PANTOPRAZOLE 40 MG TABLET PO (08:11)
[2024-09-23] MEDS: amLODIPine BESYLATE 5 MG TABLET 10 MG PO (08:11)
[2024-09-23] MEDS: METOPROLOL TARTRATE 25 MG TABLET 50 MG PO ×2 (08:11→21:37)
[2024-09-23] MEDS: NICOTINE PATCH 21 MG/24 HR PATCH.TD24 TOP (08:12)
--- NOTE | 2024-09-23 10:38 | ESPR_ITS ---
<Statement entered by Darryn Edwards MD - 09/24/24 10:34> I have discussed and was present for the essential components of the history, physical examination, diagnosis, and treatment plan with the resident. I agree with the patient's care as documented by the resident and amended herein by me. Darryn Edwards MD FACP. Documentation for date of: 09/23/24 Subjective Subjective Interval history: No overnight events. Patient seen and examined at bedside, resting comfortably. Patient states cough is improved, no longer coughing up blood. Patient expresses frustration with staying in hospital. Pending final AFB results. Exam Vital Signs Temp Pulse Resp BP Pulse Ox O2 Del Method O2 Flow Rate 96.5 F L 63 18 157/78 H 96 Room Air 2 09/23/24 08:00 09/23/24 08:11 09/23/24 08:00 09/23/24 08:11 09/23/24 08:00 09/23/24 08:00 09/19/24 08:00 Narrative Exam PE: Gen: Well-developed and well-nourished. HEENT: NCAT, PERRLA, EOMI, MMM, anicteric conjunctivae. CVS: normal S1 and S2. RRR. No M/R/G. Resp: CTA B/L. No rhonchi, rales, crackles or wheezing. Abd: soft, non-tender, non-distended. MSK: Good ROM in BUE & BLE. No edema or rash. Neuro: CN II-XII grossly intact. Strength 5/5 in BUE & BLE. Alert and oriented x3. Psych: appropriate mood and affect. Objective Labs 09/23/24 04:48 09/23/24 04:48 Labs: Laboratory Results - last 24 hr 09/23/24 04:48 WBC 11.8 H RBC 3.71 L Hgb 12.0 Hct 34.9 L MCV 94 MCH 32.3 MCHC 34.4 RDW Std Deviation 44.9 Plt Count 306 Neut % (Auto) 52 Lymph % (Auto) 31 [place] % (Auto) 14 H Eos % (Auto) 1 Baso % (Auto) 1 Neut # (Auto) 6.2 Lymph # (Auto) 3.7 [place] # (Auto) 1.6 H Eos # (Auto) 0.1 Baso # (Auto) 0.1 Immature Gran # (Auto) 0.17 H Absolute Nucleated RBC 0.00 Immature Gran % 1 H Nucleated RBC % 0 Sodium 137 Potassium 4.0 Chloride 104 Carbon Dioxide 26.5 Anion Gap 7 BUN 14 Creatinine 0.8 Estim Creat Clear Calc 71.1 eGFR > 60 BUN/Creatinine Ratio 18 Glucose 90 Calculated Osmolality 274 L Calcium 8.9 Corrected Calcium 9.5 Phosphorus 3.9 Magnesium 2.1 Total Bilirubin 0.4 AST 15 ALT 7 L Alkaline Phosphatase 64 Total Protein 7.5 Albumin 3.3 L Globulin 4.2 H Albumin/Globulin Ratio 0.8 L Quality Measures Quality Measures VTE prophylaxis Advance care planning discussed with:: patient Assessment & Plan Assessment Current Active Medications: Generic Name Dose Route Start Last Admin Trade Name Freq PRN Reason Stop Dose Admin Acetaminophen 650 mg 09/11/24 22:50 Acetaminophen 325 Mg Tablet PO 10/11/24 22:49 Q6H PRN Fever >101.5 Acetaminophen 650 mg 09/11/24 22:50 09/13/24 20:56 Acetaminophen 325 Mg Tablet PO 10/11/24 22:49 650 mg Q6H PRN Administration PAIN SCALE 1-3 (mild Albuterol/Ipratropium 3 ml 09/11/24 22:50 Albuterol/Ipratropium (Duoneb) Rt Ruth 3 Ml Nebu INH 10/12/24 00:59 Q6HRRT PRN wheezing Amlodipine Besylate 10 mg 09/11/24 23:05 09/23/24 08:11 Amlodipine Besylate 5 Mg Tablet PO 10/11/24 23:04 10 mg QDAY MAGDY Administration Divalproex Sodium 500 mg 09/12/24 22:00 09/23/24 05:[address] 500 Mg Tablet.Dr PO 10/12/24 21:59 500 mg TID MAGDY Administration Guaifenesin 100 mg 09/14/24 14:51 Guaifenesin Syrup 200 Mg/10 Ml Udc PO 10/14/24 14:50 QID PRN COUGH Protocol Labetalol HCl 10 mg 09/11/24 23:08 Labetalol Inj 5 Mg/Ml Vial 20 Ml IVP 10/11/24 23:07 Q2H PRN SBP >180mmHg Metoprolol Tartrate 50 mg 09/12/24 21:00 09/23/24 08:11 Metoprolol Tartrate 25 Mg Tablet PO 10/12/24 20:59 50 mg BID MAGDY Administration Nicotine 21 mg 09/15/24 14:30 09/23/24 08:12 Nicotine Patch 21 Mg/24 Hr Patch.Td24 TOP 10/15/24 14:29 21 mg QDAY MAGDY Administration Ondansetron HCl 4 mg 09/11/24 22:50 Ondansetron Inj 2 Mg/Ml Inj 2 Ml IV 10/11/24 22:49 Q6H PRN NAUSEA OR VOMITING Protocol Pantoprazole Sodium 40 mg 09/12/24 09:00 09/23/24 08:11 Pantoprazole 40 Mg Tablet PO 10/12/24 08:59 40 mg QDAY MAGDY Administration Plan 64-year-old female patient with reportedly past medical history of COPD not on oxygen at home, hypertension, rheumatoid arthritis on Remicade infusion, A-fib on Eliquis, hypertension, bipolar disorder with suicidal ideation, osteoporosis, presented to the ED due to productive cough with tinge of blood in the sputum for the past 2 weeks. Patient was admitted to rule out TB. #Community-acquired pneumonia #COPD exacerbation #TB rule out #MRSA pneumonia (treated) DDx: Pneumonia versus TB infection versus cocci versus neoplasm versus COPD exacerbation Patient met SIRS criteria with elevated heart rate, elevated WBCs, and pulmonary infiltrate, however sepsis was ruled out due to lack of endorgan damage including normal lactate. Patient presented with cough which is productive with tinge of blood, weight loss, history of exposure to TB however she was given anti-TB medications for 3 months Patient is on Remicade for rheumatoid arthritis which is a risk factor for TB reactivation, however patient likely had negative test of before beginning infusions. Patient also has long history of smoking, which he also increase the risk of pulmonary neoplasm. CT showed dense pneumonic consolidation versus pulmonary mass in the left lower lobe, 5.6 x 3.5 cm Spoke to patient's heavy duty mechanic farm equipment, patient had negative QuantiFERON and cocci testing prior to starting infliximab. If patient does not show improvement tomorrow, consider CT to reeval changes and pulmonary lesion. Cocci negative. Blood cultures 48 hours has been negative, first AFB smear has been negative pending 2 out of 3 AFB smears, pending mycobacterial culture. Sputum culture and Gram showed MRSA for which patient was started on IV vancomycin otherwise patient complaining of itchiness and antibiotic was switched for IV linezolid. Repeat CT chest showed dense consolidation versus pulmonary mass in the left lower lobe measuring 5.2 x 3.4 cm. Oncologist was consulted, greatly appreciate recommendations -DuoNebs every 6 hours as needed -Tylenol for fever -Oxygen to keep O2 saturation between 88 to 92% -Follow-up FB testing -2/3 AFB samples negative, Quantiferon negative -Oncology recommended CT-guided lung biopsy after last 3 sample negative. #Diarrhea, possible stool incontinence Patient complains of frequent bowel movements. Only 3 large soft bowel movements recorded by nurse. Patient reports frequently needing to change incontinence pads due to small amounts of stool, possibly having small amounts of stool incontinence. Patient nondistressed, no electrolyte abnormalities. -Continue to monitor for now #History of hypertension -amlodipine 10 mg p.o. daily -Metoprolol tartrate 50 mg p.o. twice daily #History of A-fib #History of CAD Patient history as stated. Takes Plavix as anticoag. Patient does not routinely see geochemical manager. -Because the patient has hemoptysis and has suspicious pulmonary lesion we will hold on Plavix at this time #History of bipolar disorder with suicidal ideation On evaluation patient denied any ideas to hurt herself or others Patient informed that she is taking Depakote as a mood stabilizer -Resume home meds: Depakote 500 mg p.o. 3 times daily #History of osteoporosis Patient on alendronate tablets weekly -Consider resuming home medication alendronate when clinically appropriate #Acute hypoxic respiratory failure resolved #Sepsis ruled out FEN: Cardiac diet DVT ppx: SCDs GI ppx: Pantoprazole IV lines: PIV Code status: Full code Plan of care discussed with attending Dr. Edwards. Bogdan Ochoa MD PGY?1
[2024-09-24] VITALS: BP 145/87; PULSE 75; PULSE 79; RESP 20; TEMP 36; O2SAT 98
[2024-09-24 04:00] VITALS: BP 109/56; PULSE 56; PULSE 65; RESP 16; TEMP 36.1; O2SAT 98
[2024-09-24] MEDS: DIVALPROEX SOD DR 500 MG TABLET.DR PO (05:33)
[2024-09-24 05:39] VITALS: BMI 30.2
[2024-09-24 06:22] LABS: Basophils # (Auto) 0.1 Thou/mm3 (0.0-0.2); Basophils % (Auto) 1 % (0-2.5); Eosinophils # (Auto) 0.1 Thou/mm3 (0.0-0.5); Eosinophils % (Auto) 1 % (0-10); Hematocrit 34.4 % (36.0-46.0); Hemoglobin 11.4 g/dL (12.0-16.0); Immature Granulocytes % (Auto) 1 % (0-0); Immature Granulocytes Auto 0.14 Thou/mm3 (0.00-0.00); Lymphocytes # (Auto) 3.9 Thou/mm3 (1.0-4.8); Lymphocytes % (Auto) 33 % (10-50); Mean Corpuscular HGB Conc 33.1 g/dl (31.0-37.0); Mean Corpuscular Volume 97 fL (80-100); Monocytes # (Auto) 1.5 Thou/mm3 (0.0-0.8); Monocytes % (Auto) 13 % (0-12); Neutrophils % (Auto) 51 % (37-80); Nucleated Red Blood Cell % 0 /100 WBC (0); Platelet Count 241 Thou/mm3 (140-440); RDW Standard Deviation 46.1 fL (36.4-46.3); Red Blood Count 3.56 Miln/mm3 (4.00-5.20); White Blood Count 11.7 Thou/mm3 (3.6-11.0)
[2024-09-24 06:56] LABS: Legionella Ag, EIA, Urine* NOT DETECTED
[2024-09-24 07:08] LABS: Alanine Aminotransferase < 7 U/L (10-49); Albumin, Serum 3.2 gm/dL (3.4-4.8); Albumin/Globulin Ratio 0.8 (1.2-2.2); Alkaline Phosphatase 67 U/L (46-116); Anion Gap 5 (7-16); Aspartate Amino Transferase 10 U/L (0-34); BUN/Creatinine Ratio 21 Ratio (12-20); Bilirubin,Total 0.3 mg/dL (0.3-1.2); Blood Urea Nitrogen 15 mg/dL (9-23); Calcium 8.8 mg/dL (8.3-10.6); Calcium (Corrected) 9.4 mg/dL (8.5-10.1); Carbon Dioxide 27.6 mMol/L (20.0-31.0); Chloride 104 mMol/L (98-107); Creatinine (Component) 0.7 mg/dL (0.6-1.3); Globulin 4.1 gm/dL (2.3-3.5); Glucose 95 mg/dL (74-106); Osmolality,Calculated 274 (275-295); Phosphorous 3.4 mg/dL (2.4-5.1); Potassium 4.1 mMol/L (3.4-5.1); Sodium 137 mMol/L (136-145); Total Protein 7.3 gm/dL (5.7-8.2); eGFR > 60 See Note
[2024-09-24 08:00] VITALS: BP 119/73; PULSE 62; PULSE 64; RESP 19; TEMP 36.6; O2SAT 94
[2024-09-24 08:47] LABS: Partial Thromboplastin Time 27.6 Seconds (22.0-36.0)
--- NOTE | 2024-09-24 08:52 | PC.SS ---
Rounding: AFBs negative, pending C, if possible to do CT today will DC after. If not CT will be outpt and pt can DC home today.
--- NOTE | 2024-09-24 09:07 | PD.IDPROG ---
Subjective Subjective Interval history: afb and qtf neg. not sure why she is in 260. await bx of lung mass Exam Vital Signs Temp Pulse Resp BP Pulse Ox O2 Del Method O2 Flow Rate 97.8 F 62 19 119/73 94 L Room Air 2 09/24/24 08:00 09/24/24 08:00 09/24/24 08:00 09/24/24 08:00 09/24/24 08:00 09/24/24 08:00 09/19/24 08:00 Narrative Exam limited eval today Objective - Internal Medicine Labs 09/24/24 06:11 09/24/24 06:11 Labs: Laboratory Results - last 24 hr 09/11/24 09/24/24 22:30 06:11 WBC 11.7 H RBC 3.56 L Hgb 11.4 L Hct 34.4 L MCV 97 MCH 32.0 MCHC 33.1 RDW Std Deviation 46.1 Plt Count 241 D Neut % (Auto) 51 Lymph % (Auto) 33 [place] % (Auto) 13 H Eos % (Auto) 1 Baso % (Auto) 1 Neut # (Auto) 6.0 Lymph # (Auto) 3.9 [place] # (Auto) 1.5 H Eos # (Auto) 0.1 Baso # (Auto) 0.1 Immature Gran # (Auto) 0.14 H Absolute Nucleated RBC 0.00 Immature Gran % 1 H Nucleated RBC % 0 PT 11.0 INR 1.0 APTT 27.6 Sodium 137 Potassium 4.1 Chloride 104 Carbon Dioxide 27.6 Anion Gap 5 L BUN 15 Creatinine 0.7 Estim Creat Clear Calc 81.0 eGFR > 60 BUN/Creatinine Ratio 21 H Glucose 95 Calculated Osmolality 274 L Calcium 8.8 Corrected Calcium 9.4 Phosphorus 3.4 Magnesium 2.0 Total Bilirubin 0.3 AST 10 ALT < 7 L Alkaline Phosphatase 67 Total Protein 7.3 Albumin 3.2 L Globulin 4.1 H Albumin/Globulin Ratio 0.8 L Urine Legionella Ag NOT DETECTED Assessment & Plan A&P Narrative 1. Admitted with pneumonia COPD respiratory failure improved with supportive care.cocci neg 09/11. avoid smoke. mrsa pos sputum. primary desiring rx but here more for exac of copd. with a smoking hx noted hx of breast CA noted. imaging somewhat unimpressive on review no objection to bx of area hx of tb exposure with neg qtf. received about 3 mo of multiple drug rx yrs agoand afb neg x 3 here along with neg qtf ok for lung bx as afb's neg, lower lobe disease is rarely mycobacteria afb's all neg, qtf neg too. if clinically improved, you can repeat imaging in 4-6 weeks as it often lags behind clinical progress. if some sx persist, then bx becomes more important in w/u. we can see again on Tuesday Time Spent With Patient Time: Total time spent is greater than 50% in coordination of care (as documented) at patient's floor/unit and/or counseling patient:
[2024-09-24] MEDS: NICOTINE PATCH 21 MG/24 HR PATCH.TD24 TOP (09:23)
[2024-09-24 09:24] VITALS: BP 119/73; PULSE 65
[2024-09-24] MEDS: PANTOPRAZOLE 40 MG TABLET PO (09:24)
[2024-09-24] MEDS: METOPROLOL TARTRATE 25 MG TABLET 50 MG PO (09:24)
[2024-09-24] MEDS: amLODIPine BESYLATE 5 MG TABLET 10 MG PO (09:24)
--- NOTE | 2024-09-24 09:29 | PC.IP ---
Pt.'s QFT negative and 3 negative AFBs. Pt. may be removed from Airborne Precautions
[2024-09-24 12:00] VITALS: BP 117/40; PULSE 56; PULSE 72; RESP 15; TEMP 36.2; O2SAT 97
--- NOTE | 2024-09-24 15:52 | ESDS_ITS ---
<Statement entered by Chyna Babin MD - 09/24/24 17:42> I discussed with and supervised the staff internist office based only physician who took care of this patient. I personally saw and examined the patient and discussed the assessment and plan with the entire medicine team, including my attending Dr. Paul, I agree with most of the assessment and plan as documented below Chyna Babin M.D. PGY-2 Planned Discharge Date 09/24/24 DS: Providers Provider Date of admission: 09/11/24 22:50 Primary care physician: Iwona Song NP Admitting Provider: John Romero MD Attending Provider on Admission: Doe Paul DO Consults: 09/12/24 12:21 [facility] Referral - Transportation Routine Comment: Positive screening for transportation needs. 09/16/24 09:57 Consult to Oncology Urgent Comment: Consulting Provider: Rey Engel 09/17/24 13:41 Consult to Infectious Diseases Routine Comment: Consulting Provider: Rafa Babb Attending Provider on DC: Doe Paul DO Discharging Provider: Bogdan Ochoa MD DS: Diagnosis Problem List Completed Was Problem List Reviewed/Reconciled?: Yes Hospital Course Hospital Course Hospital course: 64-year-old female patient with reportedly past medical history of COPD not on oxygen at home, hypertension, rheumatoid arthritis on Remicade infusion, A-fib on Eliquis, hypertension, bipolar disorder with suicidal ideation, osteoporosis, presented to the ED 09/11/2024 due to productive cough with tinge of blood in the sputum for the 2 weeks. Patient had left lung lobe finding concerning for mass versus consolidation on CT imaging. Patient was worked up for TB, which was ruled out by 3 negative AFBs. Patient was advised to follow-up outpatient for biopsy of lung mass. Discharge plan: Follow medications been stopped: -Spiriva Please continue taking all other medications as previously prescribed Please follow-up with your PCP within 1-2 weeks Please seek outpatient biopsy of lung mass and oncology follow-up Return to the ED if you develop new or worsening symptoms. Diagnoses: #Community-acquired pneumonia #COPD exacerbation #TB rule out #MRSA pneumonia (treated) #Diarrhea, possible stool incontinence #History of hypertension #History of A-fib #History of CAD #History of bipolar disorder with suicidal ideation #History of osteoporosis #Acute hypoxic respiratory failure resolved #Sepsis ruled out Plan of care discussed with senior resident Dr. Babin PGY?[address] Paul. Bogdan Ochoa MD PGY? Status at Discharge Overall status at discharge: patient is back to baseline Time Spent with Patient Time attestation: Total time spent providing and/or coordinating discharge services: Time spent: Greater than 30 minutes Exam Vital Signs Temp Pulse Resp BP Pulse Ox O2 Del Method O2 Flow Rate 97.2 F 56 L 15 117/40 L 97 Room Air 2 09/24/24 12:00 09/24/24 12:00 09/24/24 12:00 09/24/24 12:00 09/24/24 12:00 09/24/24 12:09/19/24 08:00 Narrative Exam PE: Gen: Well-developed and well-nourished. HEENT: NCAT, PERRLA, EOMI, MMM, anicteric conjunctivae. CVS: normal S1 and S2. RRR. No M/R/G. Resp: CTA B/L. No rhonchi, rales, crackles or wheezing. Abd: soft, non-tender, non-distended. MSK: Good ROM in BUE & BLE. No edema or rash. Neuro: CN II-XII grossly intact. Strength 5/5 in BUE & BLE. Alert and oriented x3. Psych: appropriate mood and affect. Discharge Plan Plan Patient Disposition: HOME (Self Care) Patient condition on transfer: Stable Care Plan Goals: Follow medications been stopped: -Spiriva Please continue taking all other medications as previously prescribed Please follow-up with your PCP within 1-2 weeks Please seek outpatient biopsy of lung mass and oncology follow-up Return to the ED if you develop new or worsening symptoms. Prescriptions/Referrals Prescriptions/Med Rec: Continued venlafaxine [Effexor XR] 150 MG capsule,extended release 24hr 150 mg PO QDAY Qty: 0 loratadine [Claritin] 10 MG tablet 10 mg PO QDAY Qty: 0 albuterol sulfate [ProAir HFA] 8.5 GM HFA aerosol inhaler 2 puff Inhalation QID Qty: 0 divalproex [Depakote] 500 MG tablet,delayed release (DR/EC) 500 mg PO TID Qty: 0 amlodipine [Norvasc] 5 MG tablet 5 mg PO DAILY Qty: 0 hydroxyzine HCl 25 mg Tablet 50 mg PO TID ergocalciferol (vitamin D2) [Vitamin D2] 50,000 unit Capsule 50,000 unit PO QWEEK pregabalin 50 mg capsule 50 mg PO BID carvedilol 12.5 mg tablet 12.5 mg PO DAILY metoprolol tartrate 100 mg tablet 100 mg PO BID clopidogrel 75 mg tablet 75 mg PO DAILY pantoprazole 40 mg Tablet,Delayed Release (Dr/Ec) 40 mg PO BID Ubrelvy 100 mg Tablet 100 mg PO PRN PRN (Reason: Migraine Headache) cyclobenzaprine 10 mg Tablet 10 mg PO HS ipratropium-albuterol 0.5 mg-3 mg(2.5 mg base)/3 mL Solution For Nebulization 3 ml INHALATION Q4H PRN (Reason: Shortness Of Breath Or Wheezing) hydrochlorothiazide 12.5 mg Tablet 12.5 mg PO QAM loratadine 10 mg Tablet 10 mg PO QDAY folic acid 1 mg tablet 2 mg PO DAILY Patient Comments: take 2 tablets by mouth once daily with meals hydroxyzine HCl 50 mg tablet 50 mg PO Q8H Patient Comments: take 1 tablet by mouth three times a day alendronate 70 mg tablet 70 mg PO QWEEK Trelegy Ellipta 200-62.5-25 mcg blister with device 1 inh inhalation Q24H infliximab [Remicade] 100 mg recon soln IV Discontinued Spiriva Respimat 2.5 mcg/actuation mist 2 puff INHALATION Q24H Patient Comments: inhale 2 puffs by mouth once daily Referrals: Iwona Song NP [Primary Care Provider] - Patient/Caregiver Discharge Instructions Discharge Activity: resume usual activities Print Language: Albanian Stand Alone Forms: Elly Award Info., Patient Portal Info Letter Discharge Order Discharge Orders: Discharge (Routine); Ordered 09/24/24 Ordered By: Bogdan Ochoa Quality Discharge Quality Measures VTE prophylaxis Attestestation Attestation I have discussed and was present for the essential components of the discharge history, physical examination, diagnosis, and discharge treatment plan with the resident. I agree with the patient's discharge care as documented by the resident and amended herein by me. Reggie Paul DO. The patient understood all discharge instructions, all questions were answered satisfactorily. The patient was instructed to return to the Emergency Department is symptoms worsened or persisted. Although this document has been carefully reviewed, there may still be some phonetic and other typographical errors. These errors are purely grammatical due to imperfections in the software program and should not be construed in any way to compromise the substance of the patient's medical care during this visit.
== END 2024-09-24 15:51 | disposition home or self-care (01) | DRG 178 ==
LOC: SERX 22:50 → SERHOLD 23:16 → S3SX 09-12 06:19 → S2NX 09-12 21:52
PROVIDERS: Internal Medicine Infectious Disease; Registered Nurse General Practice; Student in an Organized Health Care Education/Training Program; Admitting Provider Internal Medicine; Emergency Provider Emergency Medicine; PCP Nurse Practitioner Family; Visit Provider Student in an Organized Health Care Education/Training Program
DX: J15.212 Pneumonia due to Methicillin resistant Staphylococcus aureus (principal); J44.0 Chronic obstructive pulmonary disease with (acute) lower respiratory infection; R04.2 Hemoptysis; J44.1 Chronic obstructive pulmonary disease with (acute) exacerbation; R63.4 Abnormal weight loss; Z68.29 Body mass index [BMI] 29.0-29.9, adult; I10 Essential (primary) hypertension; M81.0 Age-related osteoporosis without current pathological fracture; I48.91 Unspecified atrial fibrillation; M06.9 Rheumatoid arthritis, unspecified; F31.9 Bipolar disorder, unspecified; F17.200 Nicotine dependence, unspecified, uncomplicated; I25.10 Atherosclerotic heart disease of native coronary artery without angina pectoris; Z79.899 Other long term (current) drug therapy; Z79.02 Long term (current) use of antithrombotics/antiplatelets; Z78.9 Other specified health status; Z79.620 Long term (current) use of immunosuppressive biologic; Z86.15 Personal history of latent tuberculosis infection; Z86.73 Personal history of transient ischemic attack (TIA), and cerebral infarction without residual deficits; Z79.01 Long term (current) use of anticoagulants; Z85.3 Personal history of malignant neoplasm of breast
CPT/HCPCS: 36415; 71045; 71250; 71275; 80053; 80307; 81001; 83615; 83735; 83880; 84100; 84443; 84484; 85025; 85610; 85730; 86331; 86480; 86635; 86803; 87015; 87040; 87077; 87081; 87086; 87116; 87186; 87205; 87206; 87400; 87449; 87502; 87634; 87811; 89220; 93005; 93306; 94640; 96361; 96365; 99285; A4649; A9270; J0360; J0696; J1200; J2021; J2919; J3370; J3475; J7030; Q9967

== ENCOUNTER 2024-10-10 08:54 | Outpatient (RCR) | payer MEDICARE, MEDICAID, SELFPAY ==
--- NOTE | 2024-10-10 09:33 | CTCFLWUP_ITS ---
[facility] [address] [place], [place] [address] FOLLOW-UP NOTE Date: 10/10/2024 MR#: [id number] Name: SUNDAR BARRON : 1960 Dx: R16.0 Hepatomegaly, not elsewhere classified Identification. Patient is a 64-year-old longtime smoker admitted with hypoxic respiratory failure and pneumonia and noted to have CT showing dense consolidation left lower lobe. Chest CT 09/15/2024 revealed dense consolidation versus pulmonary mass 5.2 x 3.4 cm. Please see inpatient consult of 09/17/2024. Patient was discharged in clinically improved state with improved COPD and pneumonia symptoms TB was ruled out. with 3 negative AFBs. Patient was seen last year by Dr. Salazar for abnormal anterior right lobe liver lesion with CT-guided needle biopsy 10/19/2023 negative for malignancy. Patient also underwent endoscopy and biopsy 12/02/2023 showing no malignancies in the areas of stomach and esophagus biopsy. Now out of the hospital, feeling better with no significant breathing difficulty. Lungs are clear no subcutaneous nodules or lymphadenopathy in supra [place] or axilla. CT-guided biopsy will be ordered and I will see the patient in 3 months. Electronically signed by: Rey Engel M.D. 10/10/2024 9:30 AM
== END 2024-10-24 23:59 | disposition home or self-care (01) ==
LOC: SCTC 08:54
PROVIDERS: PCP Nurse Practitioner Family; Referring Provider Nurse Practitioner Family; Visit Provider Radiology Therapeutic Radiology
DX: R91.8 Other nonspecific abnormal finding of lung field (principal); R16.0 Hepatomegaly, not elsewhere classified; J44.9 Chronic obstructive pulmonary disease, unspecified; J96.91 Respiratory failure, unspecified with hypoxia; Z87.891 Personal history of nicotine dependence
CPT/HCPCS: 99213; G0463

== ENCOUNTER → 2024-10-30 | Outpatient (CLI) | payer MEDICARE, MEDICAID, SELFPAY ==
[2024-10-26 09:49] VITALS: BMI 27.3
[2024-10-29 13:49] LABS: Basophils # (Auto) 0.1 Thou/mm3 (0.0-0.2); Basophils % (Auto) 1 % (0-2.5); Eosinophils # (Auto) 0.1 Thou/mm3 (0.0-0.5); Eosinophils % (Auto) 1 % (0-10); Hematocrit 45.8 % (36.0-46.0); Immature Granulocytes % (Auto) 0 % (0-0); Immature Granulocytes Auto 0.03 Thou/mm3 (0.00-0.00); Lymphocytes # (Auto) 5.2 Thou/mm3 (1.0-4.8); Lymphocytes % (Auto) 54 % (10-50); Mean Corpuscular HGB Conc 34.9 g/dl (31.0-37.0); Mean Corpuscular Hemoglobin 32.9 pg (25.0-35.0); Mean Corpuscular Volume 94 fL (80-100); Monocytes # (Auto) 0.5 Thou/mm3 (0.0-0.8); Monocytes % (Auto) 6 % (0-12); Neutrophils # (Auto) 3.7 Thou/mm3 (1.8-7.7); Neutrophils % (Auto) 38 % (37-80); Nucleated Red Blood Cell % 0 /100 WBC (0); Platelet Count 354 Thou/mm3 (140-440); RDW Standard Deviation 53.4 fL (36.4-46.3); Red Blood Count 4.86 Miln/mm3 (4.00-5.20); White Blood Count 9.7 Thou/mm3 (3.6-11.0)
[2024-10-29 14:03] LABS: Partial Thromboplastin Time 26.9 Seconds (22.0-36.0); Prothrombin Time 10.7 Seconds (9.0-12.2)
[2024-10-29 14:05] LABS: Blood Urea Nitrogen 7 mg/dL (9-23); Creatinine (Component) 0.8 mg/dL (0.6-1.3); Estimated Creatinine Clearance 67.3 mL/min (>60); eGFR > 60 See Note
[2024-10-30] VITALS (7 sets, daily range): BP systolic 163–181; BP diastolic 95–109; PULSE 93–110; RESP 20; TEMP 36.7; O2SAT 93
--- NOTE | 2024-10-30 09:15 | PC.NURSE ---
patient BP 163/106, patient dis not take home medications for BP, dr bean made aware, new orders received, see MAR
[2024-10-30] MEDS: METOPROLOL TARTRATE 25 MG TABLET 100 MG PO (09:23)
[2024-10-30] MEDS: hydroCHLOROthiazide 12.5 MG CAPSULE PO (09:32)
[2024-10-30] MEDS: carVEDILOL 12.5 MG TABLET PO (10:25)
== END | disposition home or self-care (01) ==
PROVIDERS: Radiology Diagnostic Radiology; PCP Nurse Practitioner Family; Referring Provider Radiology Therapeutic Radiology; Visit Provider Radiology Therapeutic Radiology
DX: Z53.8 Procedure and treatment not carried out for other reasons (principal); Z01.812 Encounter for preprocedural laboratory examination
CPT/HCPCS: 36415; 82565; 84520; 85025; 85610; 85730; A9270

== ENCOUNTER → 2024-11-12 | Outpatient (CLI) | payer MEDICARE, MEDICAID, SELFPAY ==
[2024-11-08 14:34] VITALS: BMI 29.0
[2024-11-12 08:21] VITALS: BP 101/64; PULSE 53; RESP 21; TEMP 36.3; O2SAT 97
--- NOTE | 2024-11-12 08:30 | XR_ITS ---
Examination: CT chest, without intravenous contrast. Sagittal and coronal 2-D reconstructions. Exam date and time: November 12, 2024 0933 hours INDICATIONS: CT chest September 15, 2024 dense consolidation versus pulmonary mass in the left lower lobe CTDI:vol (mGy) 9.25 DLP: (mGycm) 950 Technique: Multiple 3.0 mm axial sections of the chest to been obtained. Bone and lung density settings are obtained. Sagittal and coronal 2-D reconstructions have been obtained. Low dose protocols were performed. One or more of the following dose reduction techniques were used; automated exposure control, adjustment of the mA and/or KV according to patient size, use of iterative reconstruction technique. Findings: Pulmonary mass in the left lung is no longer identified IMPRESSION: Pulmonary mass in the left lung is no longer identified Recommend 3 month follow-up PA lateral chest
[2024-11-12 08:56] LABS: Basophils # (Auto) 0.1 Thou/mm3 (0.0-0.2); Basophils % (Auto) 1 % (0-2.5); Eosinophils # (Auto) 0.1 Thou/mm3 (0.0-0.5); Eosinophils % (Auto) 1 % (0-10); Hematocrit 41.5 % (36.0-46.0); Hemoglobin 14.6 g/dL (12.0-16.0); Immature Granulocytes % (Auto) 0 % (0-0); Immature Granulocytes Auto 0.03 Thou/mm3 (0.00-0.00); Lymphocytes # (Auto) 5.2 Thou/mm3 (1.0-4.8); Lymphocytes % (Auto) 60 % (10-50); Mean Corpuscular HGB Conc 35.2 g/dl (31.0-37.0); Mean Corpuscular Volume 94 fL (80-100); Monocytes # (Auto) 0.7 Thou/mm3 (0.0-0.8); Monocytes % (Auto) 8 % (0-12); Neutrophils # (Auto) 2.6 Thou/mm3 (1.8-7.7); Neutrophils % (Auto) 30 % (37-80); Nucleated Red Blood Cell % 0 /100 WBC (0); Platelet Count 262 Thou/mm3 (140-440); RDW Standard Deviation 51.1 fL (36.4-46.3); Red Blood Count 4.43 Miln/mm3 (4.00-5.20); White Blood Count 8.7 Thou/mm3 (3.6-11.0)
[2024-11-12 09:02] LABS: Blood Urea Nitrogen 11 mg/dL (9-23); Creatinine (Component) 0.8 mg/dL (0.6-1.3); Estimated Creatinine Clearance 69.3 mL/min (>60); eGFR > 60 See Note
[2024-11-12 09:11] LABS: INR 0.9 (0.9-1.3); Partial Thromboplastin Time 26.7 Seconds (22.0-36.0); Prothrombin Time 10.1 Seconds (9.0-12.2)
[2024-11-12 09:50] VITALS: BP 115/65; PULSE 50; RESP 19; O2SAT 98
== END | disposition home or self-care (01) ==
PROVIDERS: Radiology Diagnostic Radiology; PCP Nurse Practitioner Family; Referring Provider Radiology Therapeutic Radiology; Visit Provider Radiology Therapeutic Radiology
DX: R16.0 Hepatomegaly, not elsewhere classified (principal); Z53.8 Procedure and treatment not carried out for other reasons; Z01.812 Encounter for preprocedural laboratory examination
CPT/HCPCS: 36415; 71250; 82565; 84520; 85025; 85610; 85730

== ENCOUNTER → 2024-11-20 | Outpatient (CLI) | payer MEDICARE, MEDICAID, SELFPAY ==
--- NOTE | 2024-11-20 15:03 | XR_ITS ---
Examination: Knee, right , 3 views Technique: Knee AP, lateral, oblique 3 views Date and time of exam: November 20, 2024 1822 hours INDICATIONS: Right knee joint locking and weakness one year FINDINGS: Moderate osteopenia Mild to moderate tricompartment osteoarthritis most prominent patellofemoral joint Small knee effusion Old fracture proximal fibular shaft IMPRESSION: Mild to moderate tricompartment osteoarthritis
== END | disposition home or self-care (01) ==
LOC: CDIM 14:51
PROVIDERS: PCP Nurse Practitioner Family; Referring Provider Nurse Practitioner; Visit Provider Nurse Practitioner
DX: M17.11 Unilateral primary osteoarthritis, right knee (principal)
CPT/HCPCS: 73562

== ENCOUNTER 2025-01-09 10:57 | Outpatient (RCR) | payer MEDICARE, OTHER, MEDICAID, SELFPAY ==
--- NOTE | 2025-01-09 11:35 | CTCFLWUP_ITS ---
[facility] [address] [place], [place] [address] FOLLOW-UP NOTE Date: 01/09/2025 MR#: [id number] Name: SUNDAR BARRON : 1960 Dx: R16.0 Hepatomegaly, not elsewhere classified Identification. Patient has been followed for period time for suspected cancer at the cancer center with MRI abdomen 12/15/2023 showing fatty liver. Liver lesion CT-guided needle biopsy negative for malignancy 10/19/2023. Had upper endoscopy 12/02/2023. Which was negative for malignancy in stomach esophagus. A longtime smoker, admitted for hypoxic respiratory failure dense consolidation versus pulmonary mass 5.2 x 3.4 cm. Left lower lobe. Out of hospital patient improved clinically and test for TB were negative as well. CT of the chest 11/12/2024 without contrast revealed pulmonary mass in left lung no longer identified. Patient was scheduled for follow-up visit and it was noted that blood pressure was extremely high with multiple readings showing BP ranging from 170-190/100-120. Patient reportedly did not take blood pressure meds today. Informed patient that thus far no sign of any active cancer and she should be followed with primary care provider Iwona Song NP for her high blood pressure problem. Assessment #1 no sign of no sign of active cancer in lung on recent imaging studies. Repeat chest x-ray in 3 months due to patient being an active smoker recommended. #2. Extremely high blood pressure noted today. Recommended patient go to the ER and subsequent follow-up with PCP regarding the very high blood pressure. #3. No need for follow-up at cancer center unless new imaging studies or symptoms develop. Cc: KATHY Snow [facility]. Electronically signed by: Rey Engel M.D. 01/09/2025 11:33 AM
== END 2025-01-24 23:59 | disposition home or self-care (01) ==
LOC: SCTC 10:57
PROVIDERS: PCP Family Medicine; Referring Provider Nurse Practitioner Family; Visit Provider Radiology Therapeutic Radiology
DX: K76.89 Other specified diseases of liver (principal); K76.0 Fatty (change of) liver, not elsewhere classified; F17.210 Nicotine dependence, cigarettes, uncomplicated; I10 Essential (primary) hypertension
CPT/HCPCS: 99212; G0463

== ENCOUNTER 2025-01-09 11:27 | Emergency (ER) | payer MEDICARE, OTHER, MEDICAID, SELFPAY ==
[2025-01-09 11:55] VITALS: BP 199/141; BP 203/120; PULSE 105; RESP 18; TEMP 36.6; O2SAT 98; BMI 30.2
--- NOTE | 2025-01-09 11:56 | EKG_ITS ---
[facility] Test Date: 2025-01-09 Pat Name: SUNDAR BARRON Department: Room: - Gender: Female Head Nurse: : 1960 Requested By: Tyler Amaral (ELIEZER) Order Number: [id number] Reading MD: Tyler Amaral (LEAD [employer]OT TECHNICIAN) Measurements Intervals [place] Rate: 105 P: 64 HI: 225 QRS: -27 QRSD: 93 T: 68 QT: 325 QTc: 430 Interpretive Statements SINUS TACHYCARDIA WITH FIRST DEGREE AV BLOCK SEPTAL MYOCARDIAL INFARCTION , PROBABLY OLD [40+ ms Q WAVE IN V1/V2] Compared to ECG 09/11/2024 16:55:35 No significant changes /store/S0/[id number]/[id number].pdf
--- NOTE | 2025-01-09 12:01 | XR_ITS ---
Examination: PA lateral chest 2 views TECHNIQUE: Upright PA lateral chest 2 views Date and time: January 09, 2025 1243 hours Comparison September 11, 2024 INDICATIONS: Chest pain high blood pressure today. FINDINGS: Normal heart size Lungs are clear. The osseous structures are intact IMPRESSION: No active disease
--- NOTE | 2025-01-09 12:02 | PD.EDRME ---
Rapid Medical Screening Exam RME Arrival date/time: 01/09/25 11:27 64-year-old female presents emerged part today patient was at the cancer treatment center today and was found to have elevated blood pressure was referred to the ER for further evaluation Chief Complaint: Shortness of Breath/Dyspnea Vital signs: Vital Signs Temperature 98 F 01/09/25 11:55 Pulse Rate 105 H 01/09/25 11:55 Respiratory Rate 18 01/09/25 11:55 Blood Pressure 203/120 H 01/09/25 11:55 Pulse Oximetry (%) 98 01/09/25 11:55 Oxygen Delivery Method Room Air 01/09/25 11:55
[2025-01-09 12:10] VITALS: BP 203/120; PULSE 105
[2025-01-09 12:33] LABS: Basophils # (Auto) 0.1 Thou/mm3 (0.0-0.2); Basophils % (Auto) 1 % (0-2.5); Eosinophils # (Auto) 0.2 Thou/mm3 (0.0-0.5); Eosinophils % (Auto) 3 % (0-10); Hematocrit 42.9 % (36.0-46.0); Hemoglobin 15.1 g/dL (12.0-16.0); Immature Granulocytes Auto 0.01 Thou/mm3 (0.00-0.00); Lymphocytes # (Auto) 3.3 Thou/mm3 (1.0-4.8); Lymphocytes % (Auto) 45 % (10-50); Mean Corpuscular HGB Conc 35.2 g/dl (31.0-37.0); Mean Corpuscular Hemoglobin 33.1 pg (25.0-35.0); Mean Corpuscular Volume 94 fL (80-100); Monocytes # (Auto) 0.5 Thou/mm3 (0.0-0.8); Monocytes % (Auto) 6 % (0-12); Neutrophils # (Auto) 3.3 Thou/mm3 (1.8-7.7); Neutrophils % (Auto) 45 % (37-80); Nucleated Red Blood Cell # 0.00 Thou/mm3 (0.00-0.00); Nucleated Red Blood Cell % 0 /100 WBC (0); Platelet Count 216 Thou/mm3 (140-440); RDW Standard Deviation 47.2 fL (36.4-46.3); Red Blood Count 4.56 Miln/mm3 (4.00-5.20); White Blood Count 7.3 Thou/mm3 (3.6-11.0)
[2025-01-09 12:52] LABS: Alanine Aminotransferase 10 U/L (10-49); Albumin, Serum 4.2 gm/dL (3.4-4.8); Albumin/Globulin Ratio 1.2 (1.2-2.2); Alkaline Phosphatase 88 U/L (46-116); Anion Gap 4 (7-16); Aspartate Amino Transferase 17 U/L (0-34); BUN/Creatinine Ratio 11 Ratio (12-20); Bilirubin,Total 0.5 mg/dL (0.3-1.2); Blood Urea Nitrogen 9 mg/dL (9-23); Calcium 9.8 mg/dL (8.3-10.6); Calcium (Corrected) 9.8 mg/dL (8.5-10.1); Carbon Dioxide 27.4 mMol/L (20.0-31.0); Chloride 107 mMol/L (98-107); Creatinine (Component) 0.8 mg/dL (0.6-1.3); Estimated Creatinine Clearance 70.7 mL/min (>60); Globulin 3.6 gm/dL (2.3-3.5); Glucose 94 mg/dL (74-106); Osmolality,Calculated 274 (275-295); Potassium 3.9 mMol/L (3.4-5.1); Sodium 138 mMol/L (136-145); Total Protein 7.8 gm/dL (5.7-8.2); Troponin I < 0.020 ng/mL (0.0-0.045); eGFR > 60 See Note
[2025-01-09 13:33] VITALS: BP 165/95; BP 174/101; PULSE 103; RESP 20; O2SAT 97
--- NOTE | 2025-01-09 14:21 | PD.EDSOB ---
ED SOB =RME/HPI General Chief Complaint: Shortness of Breath/Dyspnea Stated Complaint: SOB WITH HIGH BP; SENT FROM [facility] Time Seen by Provider: 01/09/25 12:13 Arrival date/time: 01/09/25 11:27 Mode of arrival: EMS Limitations: no limitations RME / HPI RME / HPI Narrative: 01/09/25 11:27 64-year-old female presents emerged part today patient was at the cancer treatment center today and was found to have elevated blood pressure was referred to the ER for further evaluation. She states she is asymptomatic. She has no chest pain or shortness of breath. No near syncopal episodes. No headache, vision changes, nausea, vomiting. She has no other acute complaints. Related Data Home Medications ?Medication ?Instructions ?Recorded ?Confirmed albuterol sulfate 90 mcg/actuation 2 puff inhalation QID #0 03/05/15 11/12/24 aerosol inhaler (ProAir HFA) inhalations venlafaxine 150 mg 150 mg PO QDAY ##0 03/05/15 11/12/24 capsule,extended release 24 hr (Effexor XR) divalproex 500 mg tablet,delayed 500 mg PO TID #0 tabs 08/06/15 11/12/24 release (Depakote) ergocalciferol (vitamin D2) 1,250 50,000 unit PO QWEEK 02/22/18 11/12/24 mcg (50,000 unit) capsule (Vitamin D2) cyclobenzaprine 10 mg tablet 10 mg PO HS 10/19/23 11/12/24 ipratropium 0.5 mg-albuterol 3 mg 3 ml inhalation Q4H PRN Shortness 10/19/23 11/12/24 (2.5 mg base)/3 mL nebulization Of Breath Or Wheezing soln ubrogepant 100 mg tablet (Ubrelvy) 100 mg PO PRN PRN Migraine Headache 10/19/23 11/12/24 carvedilol 12.5 mg tablet 25 mg PO DAILY 11/15/23 11/12/24 clopidogrel 75 mg tablet 75 mg PO DAILY 11/15/23 11/12/24 metoprolol tartrate 100 mg tablet 100 mg PO BID 11/15/23 11/12/24 pantoprazole 40 mg tablet,delayed 40 mg PO BID 11/15/23 11/12/24 release pregabalin 50 mg capsule 50 mg PO BID Nerve pain 11/15/23 11/12/24 loratadine 10 mg tablet 10 mg PO QDAY 12/02/23 11/12/24 alendronate 70 mg tablet 70 mg PO QWEEK 09/12/24 11/12/24 fluticasone fur. 200 mcg-umeclid 1 inh inhalation Q24H 09/12/24 11/12/24 62.5 mcg-vilant 25 mcg inhalat.powder (Trelegy Ellipta) folic acid 1 mg tablet 2 mg PO DAILY 09/12/24 11/12/24 hydroxyzine HCl 50 mg tablet 50 mg PO Q8H 09/12/24 11/12/24 infliximab 100 mg intravenous IV 09/12/24 solution (Remicade) amlodipine 10 mg tablet 10 mg PO DAILY 11/12/24 11/12/24 hydrochlorothiazide 25 mg tablet 25 mg PO QDAY 11/12/24 11/12/24 Allergies Allergy/AdvReac Type Severity Reaction Status Date / Time iodine Allergy Severe RASH,DIFFICULTY Verified 01/09/25 11:31 BREATHING morphine Allergy Severe FEELS ON Verified 01/09/25 11:31 FIRE,FACE SWELLS adhesive tape Allergy Unknown Rash Verified 01/09/25 11:31 etanercept Allergy Rash Verified 01/09/25 11:31 Review of Systems Review of Systems Systems Reviewed: All systems reviewed, normal except as documented ED Exam General Limitations: Present no limitations General appearance: Present alert and in no apparent distress Head Head exam: Present atraumatic Eye Eye exam: Present normal appearance, PERRL and EOMI ENT ENT exam: Present normal exam, normal oropharynx and mucous membranes moist Neck Neck exam: Present normal inspection, full ROM and trachea midline Chest Chest inspection: Present normal inspection and symmetric chest wall rise Respiratory Respiratory exam: Present normal lung sounds bilaterally Cardiovascular Cardiovascular exam: Present regular rate, normal rhythm and normal heart sounds Abdominal Exam Abdominal exam: Present soft and normal bowel sounds Extremities Exam Extremities exam: Present normal inspection and full ROM Back Exam Back exam: Present normal inspection and full ROM Neurological Exam Neurological exam: Present alert and oriented X3 Psychiatric Psychiatric exam: Present normal affect and normal mood Skin Skin exam: Present warm, dry, intact and normal color Course Quality Measures none Orders Category Date Time Status EKG (ED ONLY) *Do not use* NOW Care 01/09/25 11:56 Completed EKG (ED Only) Stat Exams 01/09/25 11:56 Draft XR chest 2V Stat Exams 01/09/25 12:01 Completed CBC Stat Lab 01/09/25 12:19 Completed Comprehensive Metabolic Panel Stat Lab 01/09/25 12:19 Completed Troponin I Stat Lab 01/09/25 12:19 Completed cloNIDine HCL [Catapres] Med 01/09/25 12:01 Discontinued 0.2 mg PO X1 ONE Vital Signs Vital signs: Vital Signs Temperature 98 F 01/09/25 11:55 Pulse Rate 105 H 01/09/25 11:55 Respiratory Rate 18 01/09/25 11:55 Blood Pressure 203/120 H 01/09/25 11:55 Pulse Oximetry (%) 98 01/09/25 11:55 Oxygen Delivery Method Room Air 01/09/25 11:55 Shortness of Breath / Dyspnea MDM Narrative MDM Narrative:: 01/09/25 11:27 64-year-old female presents emerged part today patient was at the cancer treatment center today and was found to have elevated blood pressure was referred to the ER for further evaluation. She states she is asymptomatic. She has no chest pain or shortness of breath. No near syncopal episodes. No headache, vision changes, nausea, vomiting. She has no other acute complaints. On exam, patient is nontoxic-appearing in no visible signs of distress. Her vital signs are stable. When she initially arrived her blood pressure was 203/120. This later improved to 165/95. Her workup here was unremarkable for any endorgan dysfunction. Patient will be discharged from the ER. We discussed return precautions. She is return as needed for worsening emergent changes. Patient data External records reviewed:: [facility] previous records and None Clinical information provided by:: patient and EMS Social determinants that could affect healthcare access:: none Patient has the following chronic illnesses:: Hypertension How is presenting disease/condition affected by chronic disease/condition?: exacerbated by Evaluation data The following diagnostics were reviewed and interpreted by me:: lab results (No anemia, LEXIS, or elevated liver enzymes), radiology exam(s) (Clear expanded lungs without any mass or infiltrate) and EKG tracing(s) (Sinus tachycardia at [address] changes or dynamic T waves.) Lab and/or radiology exams considered but not ordered:: n/a Interpretation Summary: Unremarkable workup Medications / Prescriptions Medications or Prescriptions considered but not ordered:: n/a Medication administrations:: Medication Administration History Discontinued Medications Clonidine (Clonidine Hcl 0.1 Mg Tablet) 0.2 mg PO X1 ONE Stop: 01/09/25 12:02 Last Admin: 01/09/25 12:10 Dose: 0.2 mg Documented By: See above Consultations Consultation(s) initiated? (list below): No Diagnosis Shortness of Breath Differential Diagnosis: congestive heart failure and asthma with exacerbation Most likely diagnosis given after review of the tests above:: Hypertension Admission Indicated Admission indicated?: not indicated Admission Request Was there a request for admission?: No Disposition Plan Disposition Plan: Discharge Discharge Attestation Discharge Attestation: The patient and all family members were given an opportunity to ask questions and understood the discharge instructions. Discharge instructions specifically effects, indications for sooner follow up or return to the emergency department, and the expected course of current diagnosis. Patient condition: Stable Discharge Plan Plan Patient Disposition: HOME (Self Care) Patient condition on transfer: Stable Prescriptions/Referrals Prescriptions/Med Rec: No Action venlafaxine [Effexor XR] 150 MG capsule,extended release 24hr 150 mg PO QDAY Qty: 0 albuterol sulfate [ProAir HFA] 8.5 GM HFA aerosol inhaler 2 puff Inhalation QID Qty: 0 divalproex [Depakote] 500 MG tablet,delayed release (DR/EC) 500 mg PO TID Qty: 0 ergocalciferol (vitamin D2) [Vitamin D2] 50,000 unit Capsule 50,000 unit PO QWEEK pregabalin 50 mg capsule 50 mg PO BID carvedilol 12.5 mg tablet 25 mg PO DAILY metoprolol tartrate 100 mg tablet 100 mg PO BID clopidogrel 75 mg tablet 75 mg PO DAILY pantoprazole 40 mg Tablet,Delayed Release (Dr/Ec) 40 mg PO BID Ubrelvy 100 mg Tablet 100 mg PO PRN PRN (Reason: Migraine Headache) cyclobenzaprine 10 mg Tablet 10 mg PO HS ipratropium-albuterol 0.5 mg-3 mg(2.5 mg base)/3 mL Solution For Nebulization 3 ml INHALATION Q4H PRN (Reason: Shortness Of Breath Or Wheezing) loratadine 10 mg Tablet 10 mg PO QDAY folic acid 1 mg tablet 2 mg PO DAILY Patient Comments: take 2 tablets by mouth once daily with meals hydroxyzine HCl 50 mg tablet 50 mg PO Q8H Patient Comments: take 1 tablet by mouth three times a day alendronate 70 mg tablet 70 mg PO QWEEK Trelegy Ellipta 200-62.5-25 mcg blister with device 1 inh inhalation Q24H infliximab [Remicade] 100 mg recon soln IV amlodipine 10 mg tablet 10 mg PO DAILY Patient Comments: take 2 tablets by mouth once daily hydrochlorothiazide 25 mg tablet 25 mg PO QDAY Referrals: Louis Singh MD [Primary Care Provider] - In 1 week Problem List Clinical Impression: Hypertension Patient/Caregiver Discharge Instructions Education Materials: ED High Blood Pressure ... Additional Instructions: - Continue current medications. - Follow-up close with your primary medical team. - Return here as needed for any worsening or emergent changes. Print Language: Slovak Stand Alone Forms: [facility] Award Info., Patient Portal Info Letter
--- NOTE | 2025-01-09 14:22 | PD.EDSOB ---
ED SOB =RME/HPI General Chief Complaint: Shortness of Breath/Dyspnea Stated Complaint: SOB WITH HIGH BP; SENT FROM [facility] Time Seen by Provider: 01/09/25 12:13 Arrival date/time: 64-year-old female who is here today with hypertension. She states she had a routine doctor's appointment with her oncology team today and was found to be hypertensive. She states she was in a farrar this morning to get to her appointment and did not take her daily, antihypertensive, medications. She has had no acute changes. She states she has no chest pain or worsening shortness of breath. She does have COPD but does not endorse any worsening shortness of breath. She denies any abdominal pain, nausea, vomiting. Has no headaches. Has no near syncopal episodes. Has no change in urination. She states she is feeling fine and is at baseline. She has no other acute complaints or concerns Limitations: no limitations Related Data Home Medications ?Medication ?Instructions ?Recorded ?Confirmed albuterol sulfate 90 mcg/actuation 2 puff inhalation QID #0 03/05/15 11/12/24 aerosol inhaler (ProAir HFA) inhalations venlafaxine 150 mg 150 mg PO QDAY ##0 03/05/15 11/12/24 capsule,extended release 24 hr (Effexor XR) divalproex 500 mg tablet,delayed 500 mg PO TID #0 tabs 08/06/15 11/12/24 release (Depakote) ergocalciferol (vitamin D2) 1,250 50,000 unit PO QWEEK 02/22/18 11/12/24 mcg (50,000 unit) capsule (Vitamin D2) cyclobenzaprine 10 mg tablet 10 mg PO HS 10/19/23 11/12/24 ipratropium 0.5 mg-albuterol 3 mg 3 ml inhalation Q4H PRN Shortness 10/19/23 11/12/24 (2.5 mg base)/3 mL nebulization Of Breath Or Wheezing soln ubrogepant 100 mg tablet (Ubrelvy) 100 mg PO PRN PRN Migraine Headache 10/19/23 11/12/24 carvedilol 12.5 mg tablet 25 mg PO DAILY 11/15/23 11/12/24 clopidogrel 75 mg tablet 75 mg PO DAILY 11/15/23 11/12/24 metoprolol tartrate 100 mg tablet 100 mg PO BID 11/15/23 11/12/24 pantoprazole 40 mg tablet,delayed 40 mg PO BID 11/15/23 11/12/24 release pregabalin 50 mg capsule 50 mg PO BID Nerve pain 11/15/23 11/12/24 loratadine 10 mg tablet 10 mg PO QDAY 12/02/23 11/12/24 alendronate 70 mg tablet 70 mg PO QWEEK 09/12/24 11/12/24 fluticasone fur. 200 mcg-umeclid 1 inh inhalation Q24H 09/12/24 11/12/24 62.5 mcg-vilant 25 mcg inhalat.powder (Trelegy Ellipta) folic acid 1 mg tablet 2 mg PO DAILY 09/12/24 11/12/24 hydroxyzine HCl 50 mg tablet 50 mg PO Q8H 09/12/24 11/12/24 infliximab 100 mg intravenous IV 09/12/24 solution (Remicade) amlodipine 10 mg tablet 10 mg PO DAILY 11/12/24 11/12/24 hydrochlorothiazide 25 mg tablet 25 mg PO QDAY 11/12/24 11/12/24 Allergies Allergy/AdvReac Type Severity Reaction Status Date / Time iodine Allergy Severe RASH,DIFFICULTY Verified 01/09/25 11:31 BREATHING morphine Allergy Severe FEELS ON Verified 01/09/25 11:31 FIRE,FACE SWELLS adhesive tape Allergy Unknown Rash Verified 01/09/25 11:31 etanercept Allergy Rash Verified 01/09/25 11:31 Review of Systems Review of Systems Systems Reviewed: All systems reviewed, normal except as documented ED Exam General Limitations: Present no limitations General appearance: Present alert and in no apparent distress Head Head exam: Present atraumatic Eye Eye exam: Present normal appearance, PERRL and EOMI ENT ENT exam: Present normal exam, normal oropharynx and mucous membranes moist Neck Neck exam: Present normal inspection, full ROM and trachea midline Chest Chest inspection: Present normal inspection and symmetric chest wall rise Respiratory Respiratory exam: Present other (Expiratory wheezes noted bilaterally); Absent respiratory distress Cardiovascular Cardiovascular exam: Present regular rate, normal rhythm and normal heart sounds Abdominal Exam Abdominal exam: Present soft and normal bowel sounds Extremities Exam Extremities exam: Present normal inspection and full ROM Back Exam Back exam: Present normal inspection and full ROM Neurological Exam Neurological exam: Present alert and oriented X3 Psychiatric Psychiatric exam: Present normal affect and normal mood Skin Skin exam: Present warm, dry, intact and normal color Course Quality Measures none Orders Category Date Time Status EKG (ED ONLY) *Do not use* NOW Care 01/09/25 11:56 Completed EKG (ED Only) Stat Exams 01/09/25 11:56 Draft XR chest 2V Stat Exams 01/09/25 12:01 Completed CBC Stat Lab 01/09/25 12:19 Completed Comprehensive Metabolic Panel Stat Lab 01/09/25 12:19 Completed Troponin I Stat Lab 01/09/25 12:19 Completed cloNIDine HCL [Catapres] Med 01/09/25 12:01 Discontinued 0.2 mg PO X1 ONE Vital Signs Vital signs: Vital Signs Temperature 98 F 01/09/25 11:55 Pulse Rate 105 H 01/09/25 11:55 Respiratory Rate 18 01/09/25 11:55 Blood Pressure 203/120 H 01/09/25 11:55 Pulse Oximetry (%) 98 01/09/25 11:55 Oxygen Delivery Method Room Air 01/09/25 11:55 Shortness of Breath / Dyspnea MDM Narrative MDM Narrative:: 64-year-old female who is here today with hypertension. She states she had a routine doctor's appointment with her oncology team today and was found to be hypertensive. She states she was in a farrar this morning to get to her appointment and did not take her daily, antihypertensive, medications. She has had no acute changes. She states she has no chest pain or worsening shortness of breath. She does have COPD but does not endorse any worsening shortness of breath. She denies any abdominal pain, nausea, vomiting. Has no headaches. Has no near syncopal episodes. Has no change in urination. She states she is feeling fine and is at baseline. She has no other acute complaints or concerns On exam, patient is nontoxic-appearing and in no visible signs of distress. When patient initially arrived her blood pressure was 203/120 with a pulse of 105. It later was reduced to 165/95 after she was given a dose of clonidine. I did offer to provide breathing treatments due to her wheezing, however she states this is her baseline and she has no acute worsening changes. She would like to be discharged at this time. Patient data External records reviewed:: [facility] previous records Clinical information provided by:: patient Social determinants that could affect healthcare access:: none Patient has the following chronic illnesses:: Hypertension, COPD How is presenting disease/condition affected by chronic disease/condition?: exacerbated by Evaluation data The following diagnostics were reviewed and interpreted by me:: lab results (Patient has no leukocytosis or anemia. She has no metabolic derangement. Her troponin is unremarkable.), radiology exam(s) (Clear and expanded lungs lightly mass or infiltrate.) and EKG tracing(s) (Sinus tachycardia 105 bpm with a first-degree AV block. No ST changes.) Lab and/or radiology exams considered but not ordered:: n/a Interpretation Summary: n/a Medications / Prescriptions Medications or Prescriptions considered but not ordered:: n/a Medication administrations:: Medication Administration History Discontinued Medications Clonidine (Clonidine Hcl 0.1 Mg Tablet) 0.2 mg PO X1 ONE Stop: 01/09/25 12:02 Last Admin: 01/09/25 12:10 Dose: 0.2 mg Documented By: See above Consultations Consultation(s) initiated? (list below): No Diagnosis Shortness of Breath Differential Diagnosis: congestive heart failure, community acquired pneumonia and asthma with exacerbation Most likely diagnosis given after review of the tests above:: Hypertension Admission Indicated Admission indicated?: not indicated Admission Request Was there a request for admission?: No Disposition Plan Disposition Plan: Discharge Discharge Attestation Discharge Attestation: The patient and all family members were given an opportunity to ask questions and understood the discharge instructions. Discharge instructions specifically effects, indications for sooner follow up or return to the emergency department, and the expected course of current diagnosis. Patient condition: Stable Discharge Plan Plan Patient Disposition: HOME (Self Care) Patient condition on transfer: Stable Prescriptions/Referrals Prescriptions/Med Rec: No Action venlafaxine [Effexor XR] 150 MG capsule,extended release 24hr 150 mg PO QDAY Qty: 0 albuterol sulfate [ProAir HFA] 8.5 GM HFA aerosol inhaler 2 puff Inhalation QID Qty: 0 divalproex [Depakote] 500 MG tablet,delayed release (DR/EC) 500 mg PO TID Qty: 0 ergocalciferol (vitamin D2) [Vitamin D2] 50,000 unit Capsule 50,000 unit PO QWEEK pregabalin 50 mg capsule 50 mg PO BID carvedilol 12.5 mg tablet 25 mg PO DAILY metoprolol tartrate 100 mg tablet 100 mg PO BID clopidogrel 75 mg tablet 75 mg PO DAILY pantoprazole 40 mg Tablet,Delayed Release (Dr/Ec) 40 mg PO BID Ubrelvy 100 mg Tablet 100 mg PO PRN PRN (Reason: Migraine Headache) cyclobenzaprine 10 mg Tablet 10 mg PO HS ipratropium-albuterol 0.5 mg-3 mg(2.5 mg base)/3 mL Solution For Nebulization 3 ml INHALATION Q4H PRN (Reason: Shortness Of Breath Or Wheezing) loratadine 10 mg Tablet 10 mg PO QDAY folic acid 1 mg tablet 2 mg PO DAILY Patient Comments: take 2 tablets by mouth once daily with meals hydroxyzine HCl 50 mg tablet 50 mg PO Q8H Patient Comments: take 1 tablet by mouth three times a day alendronate 70 mg tablet 70 mg PO QWEEK Trelegy Ellipta 200-62.5-25 mcg blister with device 1 inh inhalation Q24H infliximab [Remicade] 100 mg recon soln IV amlodipine 10 mg tablet 10 mg PO DAILY Patient Comments: take 2 tablets by mouth once daily hydrochlorothiazide 25 mg tablet 25 mg PO QDAY Referrals: Louis Singh MD [Primary Care Provider] - In 1 week Problem List Clinical Impression: Hypertension Patient/Caregiver Discharge Instructions Education Materials: ED High Blood Pressure ... Additional Instructions: - Continue current medications. - Follow-up close with your primary medical team. - Return here as needed for any worsening or emergent changes. Print Language: Chilean Stand Alone Forms: [facility] Award Info., Patient Portal Info Letter
== END 2025-01-09 14:31 | disposition home or self-care (01) ==
PROVIDERS: Nurse Practitioner Primary Care; Emergency Provider Emergency Medicine; PCP Family Medicine
DX: I10 Essential (primary) hypertension (principal); R07.9 Chest pain, unspecified; I25.2 Old myocardial infarction; I44.0 Atrioventricular block, first degree; J44.9 Chronic obstructive pulmonary disease, unspecified
CPT/HCPCS: 36415; 71046; 80053; 84484; 85025; 93005; 99283; A9270

== ENCOUNTER → 2025-02-26 | Outpatient (CLI) | payer MEDICARE, OTHER, MEDICAID, SELFPAY ==
--- NOTE | 2025-02-26 16:15 | XR_ITS ---
Exam: MRI knee without contrast, right Date and time of exam: February 26, 2025, 1657 hrs. Indications: Right knee pain since age 16, diagnosis rheumatoid arthritis, joint clicking and popping Technique: Multiple axial, coronal, and sagittal sections on the knee have been obtained. T2-Weighted sagittal, fat-suppressed images, TR 3,500, TE 62, T2 weighted coronal fat-saturated images, TR 3,500, TE 62 Proton density sagittal sections, TR 1800, TE 31. T-1 weighted coronal images, TR 524, TE 13.0 Findings: Medial meniscus anterior horn intact. Medial meniscus, body meniscocapsular separation. Posterior horn medial meniscus intact. Lateral meniscus anterior horn large vertical tears Lateral meniscus, body truncation inner margin Posterior horn lateral meniscus is intact Anterior cruciate ligament moderate sprain Posterior cruciate ligament appears intact. Knee effusion is large. Quadriceps and patellar tendons appear intact. There is no evidence of tendinosis. Inflammatory change or fracture of Hoffa's fat pad is not seen. Medial patellar facet demonstrates severe thinning. Lateral patellar facet cartilage demonstrates severe thinning. Trochlear cartilage demonstrates severe thinning. Marrow signal adequate. Medial collateral ligament appears intact. Illiotibial band and fibular collateral ligament are intact. Biceps femoris tendons appear intact. Medial femoral condylar articular cartilage demonstrates moderate. thinning. Lateral femoral condylar articular cartilage demonstratesmoderate. thinning. Tibial plateau cartilage demonstrates moderate. thinning. Impression: Meniscocapsular separation body medial meniscus Lateral meniscus tears as above Moderate sprain anterior cruciate ligament
== END | disposition home or self-care (01) ==
LOC: SMRI 16:19
PROVIDERS: PCP Family Medicine; Referring Provider Nurse Practitioner; Visit Provider Nurse Practitioner
DX: S83.241A Other tear of medial meniscus, current injury, right knee, initial encounter (principal); S83.281A Other tear of lateral meniscus, current injury, right knee, initial encounter; S83.511A Sprain of anterior cruciate ligament of right knee, initial encounter; X58.XXXA Exposure to other specified factors, initial encounter
CPT/HCPCS: 73721

== ENCOUNTER 2025-04-08 10:37 | Day surgery (SDC) | payer MEDICARE, MEDICAID, OTHER, SELFPAY ==
[2025-04-08] VITALS (13 sets, daily range): BP systolic 109–134; BP diastolic 52–101; PULSE 56–70; RESP 16–20; TEMP 36.7–36.8; O2SAT 94–98
[2025-04-08 10:07] LABS: Basophils # (Auto) 0.1 Thou/mm3 (0.0-0.2); Basophils % (Auto) 1 % (0-2.5); Eosinophils # (Auto) 0.1 Thou/mm3 (0.0-0.5); Eosinophils % (Auto) 1 % (0-10); Hematocrit 42.7 % (36.0-46.0); Hemoglobin 14.6 g/dL (12.0-16.0); Immature Granulocytes Auto 0.06 Thou/mm3 (0.00-0.00); Lymphocytes # (Auto) 3.6 Thou/mm3 (1.0-4.8); Lymphocytes % (Auto) 37 % (10-50); Mean Corpuscular HGB Conc 34.2 g/dl (31.0-37.0); Mean Corpuscular Hemoglobin 32.9 pg (25.0-35.0); Mean Corpuscular Volume 96 fL (80-100); Monocytes # (Auto) 0.9 Thou/mm3 (0.0-0.8); Monocytes % (Auto) 9 % (0-12); Neutrophils # (Auto) 5.0 Thou/mm3 (1.8-7.7); Neutrophils % (Auto) 51 % (37-80); Nucleated Red Blood Cell # 0.00 Thou/mm3 (0.00-0.00); Nucleated Red Blood Cell % 0 /100 WBC (0); Platelet Count 273 Thou/mm3 (140-440); RDW Standard Deviation 46.2 fL (36.4-46.3); Red Blood Count 4.44 Miln/mm3 (4.00-5.20); White Blood Count 9.7 Thou/mm3 (3.6-11.0)
[2025-04-08 10:25] LABS: Anion Gap 9 (7-16); BUN/Creatinine Ratio 12 Ratio (12-20); Blood Urea Nitrogen 11 mg/dL (9-23); Calcium 9.5 mg/dL (8.3-10.6); Carbon Dioxide 23.3 mMol/L (20.0-31.0); Chloride 103 mMol/L (98-107); Creatinine (Component) 0.9 mg/dL (0.6-1.3); Estimated Creatinine Clearance 61.4 mL/min (>60); Glucose 126 mg/dL (74-106); Osmolality,Calculated 271 (275-295); Potassium 4.1 mMol/L (3.4-5.1); Sodium 135 mMol/L (136-145); eGFR > 60 See Note
[2025-04-08 10:31] LABS: INR 0.9 (0.9-1.3); Partial Thromboplastin Time 27.5 Seconds (22.0-36.0); Prothrombin Time 10.1 Seconds (9.0-12.2)
--- NOTE | 2025-04-08 15:58 | PC.NURSE ---
handoff report was given from Brenda Castillo to Tyler liu RN informed me that patient needs to start two new medications (Eliquis 5mg BID and aspirin Daily 81mg) starting tonight On the discharge packet there is direction/phone numbers and other info of where to pick up driver medications, i told them that they should call to see what the update on the medication is and if its ready to pick up driver Right wrist looks fine, no hematoma or bleeding noticed
--- NOTE | 2025-04-08 16:03 | ESOP_ITS ---
Cardiac Cath Procedure Procedure Narrative Date of procedure: CREDIT OFFICE MANAGER: Deonte Hanson MD PROCEDURE PERFORMED: 1. Left heart cardiac catheterization- Left and right coronary angiograms with LVEDP measurement and left ventriculogram 2. Ultrasound-guided access of the right radial artery 3. Conscious sedation for 30 minutes.. HISTORY AND INDICATIONS: A 65-year-old woman with past medical history of COPD, Coronary artery disease, Atrial fibrillation, Psoriatic arthritis, Degenerative disc disorder, Osteopenia, History of stroke 2010. Patient had been experiencing SOB on exertion with chest tightness. Patient had ischemic cardiac work up. Patient continued to have chest tightness and palpitations. Family history of cardiac disease. Patient reports sudden onset weakness and diaphoresis. In-office EKG shows new T wave inversions in inferior and anterior leads, concerning for heart attack.Given a negative stress test but persistent symptoms, the patient has been recommended cardiac catheterization. Patient was brought in for an elective cardiac catheterization. Patient was explained the risk benefits and a lternatives of performing a left heart cardiac catheterization including the risk of bleeding, heart attack, stroke and in detail and the agreeable for the procedure. Consent signed, placed in the chart and H&P updated. DESCRIPTION OF PROCEDURE: The patient was brought to the cardiac catheterization lab and all asceptic precautions were followed. Patient was given 1 Mg of Versed and 50 mcg of fentanyl for moderate conscious sedation. 2 mL of lidocaine was given in the right wrist. The right radial artery was accessed via the ultrasound guidance as well as micropuncture technique. A 6 Lithuanian glide sheath was introduced. We then used a 5 Lithuanian TIG 4 catheter to perform the left and right coronary angiograms as well as a left ventriculogram which showed the following findings. 1. Left ventricular ejection fraction was normal at 55 to 60% without any regional wall motion abnormalities. LVEDP was normal at 21 mmHg. There was no significant transvalvular aortic gradient. 2. Right dominant circulation 3. Left main artery is a large-caliber vessel gives rise to LAD, LCX and without any significant disease. 4. LAD is a large sized artery without any significant disease, gives rise to a medium size diagonal with 30% stenosis of ostium. 5. LCx is a large sized artery, gives rise to a medium OM1 and small OM2 without any significant disease. 6. RCA is a large artery, gives rise to a small RPDA with moderate 60-70% stenosis but vessel is less than 1.5 mm and RPL without any significant disease. A radial band was used to achieve the hemostasis of the right radial artery access. Patient will be monitored in the cardiac manufacturing worker for the next 2 to 3 hours and will be discharged home / telemetry later today if hemodynamically stable. Complications: None Specimens: None Blood loss: Estimated 5-10 ml Summary/findings: 1. Abnormal Stress test: LHC showed moderate CAD with 30% stenosis of ostial diagonal 1, 60-70% stenosis of small RPDA but vessel is less than 1.5 mm. Rest of normal coronaries with only minimal luminal irregularities and no angiographically significant obstruction. 2. LVEF normal at 55-60% and LVEDP normal at 21 mmHg. No significant transvalvular aortic gradient. Recommendations: 1. Recommend aggressive medical treatment and aggressive risk factor modification. 2. Recommended no lifting more than 5 pounds for next 7-10 days and follow up in my office in 7 days. Deonte Hanson MD Interventional Cardiology.
== END 2025-04-08 15:45 | disposition home health service (06) ==
PROVIDERS: PCP Family Medicine; Referring Provider Internal Medicine Cardiovascular Disease; Visit Provider Internal Medicine Cardiovascular Disease
PROC: (CPT 93458; principal; 2025-04-08 12:00)
DX: I25.10 Atherosclerotic heart disease of native coronary artery without angina pectoris (principal); I48.0 Paroxysmal atrial fibrillation; Z86.73 Personal history of transient ischemic attack (TIA), and cerebral infarction without residual deficits; J44.9 Chronic obstructive pulmonary disease, unspecified; L40.50 Arthropathic psoriasis, unspecified; M51.362 Other intervertebral disc degeneration, lumbar region with discogenic back pain and lower extremity pain; M81.0 Age-related osteoporosis without current pathological fracture; I10 Essential (primary) hypertension; Z79.899 Other long term (current) drug therapy
CPT/HCPCS: 93458; 36415; 80048; 85025; 85610; 85730; 93005; 99152; A4649; C1769; C1887; C1894; J0168; J0461; J1200; J1643; J1720; J2250; J2312; J2371; J3010; J3490; Q9967; J2305

== ENCOUNTER → 2025-04-16 | Outpatient (CLI) | payer MEDICARE, MEDICAID, OTHER, SELFPAY ==
[2025-04-16 12:14] LABS: Basophils # (Auto) 0.1 Thou/mm3 (0.0-0.2); Basophils % (Auto) 1 % (0-2.5); Eosinophils # (Auto) 0.1 Thou/mm3 (0.0-0.5); Eosinophils % (Auto) 2 % (0-10); Hematocrit 43.5 % (36.0-46.0); Hemoglobin 14.7 g/dL (12.0-16.0); Immature Granulocytes Auto 0.02 Thou/mm3 (0.00-0.00); Lymphocytes # (Auto) 2.6 Thou/mm3 (1.0-4.8); Lymphocytes % (Auto) 42 % (10-50); Mean Corpuscular HGB Conc 33.8 g/dl (31.0-37.0); Mean Corpuscular Hemoglobin 32.9 pg (25.0-35.0); Mean Corpuscular Volume 97 fL (80-100); Monocytes # (Auto) 0.6 Thou/mm3 (0.0-0.8); Monocytes % (Auto) 9 % (0-12); Neutrophils # (Auto) 2.9 Thou/mm3 (1.8-7.7); Neutrophils % (Auto) 46 % (37-80); Nucleated Red Blood Cell # 0.00 Thou/mm3 (0.00-0.00); Nucleated Red Blood Cell % 0 /100 WBC (0); Platelet Count 279 Thou/mm3 (140-440); RDW Standard Deviation 47.6 fL (36.4-46.3); Red Blood Count 4.47 Miln/mm3 (4.00-5.20); White Blood Count 6.3 Thou/mm3 (3.6-11.0)
[2025-04-16 12:30] LABS: Alanine Aminotransferase 12 U/L (10-49); Albumin, Serum 4.2 gm/dL (3.4-4.8); Albumin/Globulin Ratio 1.6 (1.2-2.2); Alkaline Phosphatase 88 U/L (46-116); Anion Gap 7 (7-16); Aspartate Amino Transferase 17 U/L (0-34); BUN/Creatinine Ratio 11 Ratio (12-20); Bilirubin,Total 0.6 mg/dL (0.3-1.2); Blood Urea Nitrogen 9 mg/dL (9-23); C-Reactive Protein < 0.5 mg/dL (0.0-0.9); Calcium 9.8 mg/dL (8.3-10.6); Calcium (Corrected) 9.8 mg/dL (8.5-10.1); Carbon Dioxide 26.0 mMol/L (20.0-31.0); Chloride 106 mMol/L (98-107); Creatinine (Component) 0.8 mg/dL (0.6-1.3); Globulin 2.7 gm/dL (2.3-3.5); Glucose 98 mg/dL (74-106); Osmolality,Calculated 276 (275-295); Potassium 4.2 mMol/L (3.4-5.1); Sodium 139 mMol/L (136-145); Total Protein 6.9 gm/dL (5.7-8.2); eGFR > 60 See Note
[2025-04-16 12:36] LABS: Sed Rate (ESR) 24 mm/hr (0-30)
== END | disposition home or self-care (01) ==
PROVIDERS: PCP Family Medicine; Referring Provider Nurse Practitioner; Visit Provider Nurse Practitioner
DX: M05.79 Rheumatoid arthritis with rheumatoid factor of multiple sites without organ or systems involvement (principal); M25.561 Pain in right knee
CPT/HCPCS: 36415; 80053; 85025; 85652; 86140

== ENCOUNTER 2025-05-06 10:03 | Day surgery (SDC) | payer MEDICARE, MEDICAID, OTHER, SELFPAY ==
[2025-05-02 10:41] VITALS: BMI 28.6
--- NOTE | 2025-05-03 10:25 | EKG_ITS ---
[facility] Test Date: 2025-05-03 Pat Name: SUNDAR BARRON Department: Room: - Gender: Female Clinical Asst: DO : 1960 Requested By: Deonte Hanson Order Number: [id number] Reading MD: Deonte Hanson Measurements Intervals [place] Rate: 115 P: DC: QRS: 41 QRSD: 91 T: 61 QT: 325 QTc: 451 Interpretive Statements ATRIAL FIBRILLATION WITH RAPID VENTRICULAR RESPONSE SEPTAL MYOCARDIAL INFARCTION , PROBABLY OLD [40+ ms Q WAVE IN V1/V2] Compared to ECG 04/08/2025 10:07:31 Sinus bradycardia no longer present Myocardial infarct finding still present /store/S0/[id number].pdf
[2025-05-03 10:43] LABS: Basophils # (Auto) 0.1 Thou/mm3 (0.0-0.2); Basophils % (Auto) 1 % (0-2.5); Eosinophils # (Auto) 0.1 Thou/mm3 (0.0-0.5); Eosinophils % (Auto) 2 % (0-10); Hematocrit 46.1 % (36.0-46.0); Hemoglobin 15.7 g/dL (12.0-16.0); Immature Granulocytes Auto 0.02 Thou/mm3 (0.00-0.00); Lymphocytes # (Auto) 3.4 Thou/mm3 (1.0-4.8); Lymphocytes % (Auto) 41 % (10-50); Mean Corpuscular HGB Conc 34.1 g/dl (31.0-37.0); Mean Corpuscular Hemoglobin 32.8 pg (25.0-35.0); Mean Corpuscular Volume 96 fL (80-100); Monocytes # (Auto) 0.7 Thou/mm3 (0.0-0.8); Monocytes % (Auto) 8 % (0-12); Neutrophils # (Auto) 4.0 Thou/mm3 (1.8-7.7); Neutrophils % (Auto) 48 % (37-80); Nucleated Red Blood Cell # 0.00 Thou/mm3 (0.00-0.00); Nucleated Red Blood Cell % 0 /100 WBC (0); Platelet Count 261 Thou/mm3 (140-440); RDW Standard Deviation 46.0 fL (36.4-46.3); Red Blood Count 4.79 Miln/mm3 (4.00-5.20); White Blood Count 8.2 Thou/mm3 (3.6-11.0)
[2025-05-03 10:59] LABS: Anion Gap 6 (7-16); BUN/Creatinine Ratio 13 Ratio (12-20); Blood Urea Nitrogen 10 mg/dL (9-23); Calcium 9.4 mg/dL (8.3-10.6); Carbon Dioxide 27.6 mMol/L (20.0-31.0); Chloride 102 mMol/L (98-107); Creatinine (Component) 0.8 mg/dL (0.6-1.3); Estimated Creatinine Clearance 68.0 mL/min (>60); Glucose 119 mg/dL (74-106); INR 1.0 (0.9-1.3); Osmolality,Calculated 271 (275-295); Partial Thromboplastin Time 28.8 Seconds (22.0-36.0); Potassium 4.3 mMol/L (3.4-5.1); Prothrombin Time 10.2 Seconds (9.0-12.2); Sodium 136 mMol/L (136-145); eGFR > 60 See Note
[2025-05-06] VITALS (14 sets, daily range): BP systolic 107–143; BP diastolic 67–90; PULSE 52–61; RESP 12–22; TEMP 36.2; O2SAT 94–99
--- NOTE | 2025-05-06 10:50 | EKG_ITS ---
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: : 1960 Requested By: Deonte Corrales Order Number: [id number] Reading MD: Deonte Corrales Measurements Intervals [place] Rate: 56 P: -57 WI: 194 QRS: -11 QRSD: 97 T: -76 QT: 461 QTc: 448 Interpretive Statements ECTOPIC ATRIAL BRADYCARDIA SEPTAL MYOCARDIAL INFARCTION , OF INDETERMINATE AGE MODERATE T-WAVE ABNORMALITY, CONSIDER ANTEROLATERAL ISCHEMIA Compared to ECG 05/03/2025 10:55:56 Bradycardia, nonsinus now present T-wave abnormality now present Possible ischemia now present Atrial fibrillation no longer present Myocardial infarct finding still present /store/S0/[id number].pdf
--- NOTE | 2025-05-06 11:30 | ECHO_ITS ---
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 There is indeterminate diastolic function in the left ventricle. Left Atrium Left atrial chamber dimension is moderately enlarged. Mitral Valve There is trace mitral valve regurgitation. Tricuspid Valve There is trace tricuspid valve regurgitation. Pericardium/Pleural There is no pericardial effusion. Summary 1. Indication: Symptomatic AFib/ cardioversion. 2. No LA/ EDITA thrombus. Bubble study negative for PFO or ASD. 3. Normal LV size and function. EF estimated at -55-60%. 4. Normal RV size and function. Mild MR and Trace TR. 5. Atrial septal hypertrophy noted. Atrial septum measuring 1.7cm. No PFO or ASD. 6. Systolic blunting of pulmonary veins noted. No pericardial effusion. Report Signatures Finalized by Deonte Hanson on 05/06/2025 06:50 PM
[2025-05-06] MEDS: BENZOCAINE 20% (Hurricaine) SPRAY 1 DOSE TOP (12:40)
[2025-05-06] MEDS: fentaNYL CIT INJ 50 mCg/ML AMP 2ML 100 MCG IVP (12:40)
--- NOTE | 2025-05-06 12:59 | EKG_ITS ---
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
[2025-05-06] MEDS: MIDAZOLAM INJ 1 MG/ML VIAL 2 ML 5 MG IVP (13:25)
--- NOTE | 2025-05-06 13:48 | PC.NURSE ---
1305 patient is sleepy and arousable, breathing unlabored, s/p EMILY and cardioversion, report received from Bonnie HANLEY, patient to resume all home medications. EKG completed and seen by Dr. tapia. 1347 patient is awake, alert, breathing unlabored, eating sandwich and 7up with no nausea, family member called to pickling tank operator patient, waiting for patient to arrive, report given to Latrice HANLEY
--- NOTE | 2025-05-06 14:53 | PC.NURSE ---
1428 patient is awake alert, breathing unlabored, patient disconnected from vital signs monitors and getting dressed to be discharged home, report received from Latrice HANLEY 1438 patient is awake, alert, breathing unlabored, able to tolerate food and drink with no difficulty swallowing or nausea, skin where defibrilator pads were in place is intact with no burn, patient meets discharge criteria, discharge instructions given to patient and , patient discharged home in wheelchair with all belongings.
--- NOTE | 2025-05-06 15:32 | ESOP_ITS ---
Procedure Direct current cardioversion for uncontrolled atrial fibrillation Moderate Conscious Sedation with Versed and Fentanyl Date of Procedure 05/06/25 Pre Op Diagnosis Atrial Fibrillation Indication Atrial Fibrillation Post Op Diagnosis Normal Sinus Rhythm restored. Procedure Description Patient has paroxysmal atrial fibrillation with atrial tachycardia and ventricular rate was controlled came in for elective cardioversion as patient was having significant symptoms for the Afib. Decision was made to perform cardi oversion for the patient after performing a transesophageal echocardiogram. Transesophageal echocardiogram was completed today and did not show any significant LA or EIDTA thrombus.? Please see EMILY report from today for rest of the findings.? Patient was already on anticoagulation with eliquis.. Patient was taken to the cath lab radiological technologist for the EMILY and cardioversion, both anterior and posterior pads were placed.? Patient was given moderate sedation and received a total of 2 mg of Versed and 25 mcg of fentanyl prior to the procedure to provide him enough for sedation. A biphasic defibrillator was used.? Patient received 120 J initially and then 150 J synchronized shock was given after which patient converted successfully into normal sinus rhythm.? No complications during or after the procedure.? Patient is doing well.? His heart rate was stable between 50 to 60 bpm and appears to be normal sinus rhythm on the telemetry.? Recommend to perform an EKG to document normal sinus rhythm postprocedure.? Patient will be monitored in the cath lab radiological technologist for the next 1-2 hours and will be discharged home if hemodynamically stable. Will adjust her medications as outpatient Estimated Blood Loss 0 Specimen(s) Specimen(s): None Conclusion Successful direct current cardioversion of Atrial Fibrillation to Normal Sinus Rhythm Recommendation Continue carvedilol 25 mg BID if BP stable and will adjust medications in the office as outpatient. Continue Eliquis 5 mg BID for anticaogulation. EKG to document NSR post procedure. No driving for 24 hours. Patient recommended to follow up in 1 week in the clinic. Surgical Staff Surgeon: Deonte Hanson MD
== END 2025-05-06 14:38 | disposition home or self-care (01) ==
PROVIDERS: PCP Family Medicine; Referring Provider Internal Medicine Cardiovascular Disease; Visit Provider Internal Medicine Cardiovascular Disease
PROC: (CPT 93312; principal; 2025-05-06 11:30)
PROC: 5A2204Z Restoration of Cardiac Rhythm, Single (ICD-10-PCS; CPT 92960; 2025-05-06 11:30)
DX: I48.0 Paroxysmal atrial fibrillation (principal); I25.10 Atherosclerotic heart disease of native coronary artery without angina pectoris; Z86.73 Personal history of transient ischemic attack (TIA), and cerebral infarction without residual deficits; J44.9 Chronic obstructive pulmonary disease, unspecified; L40.50 Arthropathic psoriasis, unspecified; M51.362 Other intervertebral disc degeneration, lumbar region with discogenic back pain and lower extremity pain; M81.0 Age-related osteoporosis without current pathological fracture; I10 Essential (primary) hypertension; R00.2 Palpitations; Z01.810 Encounter for preprocedural cardiovascular examination; Z79.02 Long term (current) use of antithrombotics/antiplatelets; Z79.899 Other long term (current) drug therapy
CPT/HCPCS: 92960; 36415; 80048; 85025; 85610; 85730; 93005; 93312; 99152; J2250; J3010; A9270